=== PATIENT | female | born 1995 | race African-American/Black ===

== ENCOUNTER 2016-07-27 08:18 | Emergency (ER) | payer OTHER ==
[2016-07-27 08:27] VITALS: RESP 20
--- NOTE | 2016-07-27 08:54 | ED ---
Nausea/Vomiting/Diarrhea HPI - General Chief complaint: Nausea/Vomiting/Diarrhea Stated complaint: Flu Time Seen by Provider: 07/27/16 08:28 Source: patient, RN notes reviewed Mode of arrival: ambulatory Limitations: no limitations - History of Present Illness Initial comments: Patient is a 20-year-old female presents to the emergency room for evaluation of nausea and vomiting. Patient states symptoms began around 4 PM yesterday. Patient states she's been throwing up once every hour. Patient stated she tried taking Tylenol but she vomited it back up. Patient also states she began developing right-sided low back pain last night. Patient states pain is not getting any better. Patient states pain is worse with movement. Patient denies any history of kidney stones. Patient denies recent trauma or injury to her back. Patient denies numbness or tingling going down her legs. Patient denies saddle anesthesia. Patient denies urinary or fecal incontinence. Patient denies any pain or burning during urination, trouble urinating or blood in urine. Patient denies abdominal pain. Patient states she still feeling very nauseous. Patient denies diarrhea or constipation. Patient states she's had slight fever over the past 12 hours. Patient denies sinus congestion, cough , throat pain, ear pain. - Related Data Previous Rx's Medication Instructions Recorded Ondansetron Odt [Zofran Odt] 4 mg PO Q8HR PRN #12 tab 07/27/16 Allergies Allergy/AdvReac Type Severity Reaction Status Date / Time No Known Allergies Allergy Verified 07/27/16 09:00 Review of Systems ROS Statement: Those systems with pertinent positive or pertinent negative responses have been documented in the HPI. ROS Other: All systems not noted in ROS Statement are negative. Past Medical History Past Medical History: No Reported History History of Any Multi-Drug Resistant Organisms: MRSA Date of last positivie culture/infection: 2012 MDRO Source:: LEFT GROIN Past Surgical History: No Surgical Hx Reported Past Psychological History: No Psychological Hx Reported Smoking Status: Never smoker Past Alcohol Use History: None Reported Past Drug Use History: None Reported General Exam - General Exam Comments Initial Comments: Sitting in exam room, no acute distress. Limitations: no limitations General appearance: alert, in no apparent distress Head exam: Present: atraumatic, normocephalic, normal inspection Eye exam: Present: normal appearance ENT exam: Present: normal exam Neck exam: Present: normal inspection Respiratory exam: Present: normal lung sounds bilaterally. Absent: respiratory distress Cardiovascular Exam: Present: normal rhythm, tachycardia, normal heart sounds GI/Abdominal exam: Present: soft, normal bowel sounds. Absent: distended, tenderness, guarding, rebound, rigid Extremities exam: Present: normal inspection Back exam: Present: normal inspection Neurological exam: Present: alert, oriented X3, CN II-XII intact, normal gait Psychiatric exam: Present: normal affect, normal mood Skin exam: Present: warm, dry, intact, normal color. Absent: rash Course Vital Signs 07/27/16 07/27/16 08:23 10:48 Temperature 100.4 F H 98.2 F Pulse Rate 118 H 78 Respiratory 20 20 Rate Blood Pressure 99/57 103/60 O2 Sat by Pulse 99 96 Oximetry Medical Decision Making - Medical Decision Making Patient is a 20-year-old female presents emergency room for evaluation of nausea and vomiting. Patient is slightly elevated WBC. 4+ ketones in urine. Patient given fluids. Patient notes have slight blood in urine. Patient denies menstruating at this moment. CT abdomen/pelvis ordered to rule out possible kidney stone. Abdomen/pelvis CT: No bowel obstruction is present. No significant acute findings to account for patient's symptoms. There is 5 cm oval low-density lesion left pelvis stable and simple small ovarian cyst. Findings consistent with total situs inversus. Results discussed with patient. Patient states she is feeling better. Will send patient home with nausea medication and advised to follow-up with her primary care provider. Patient states she understands everything that was discussed with her. Return parameters discussed. Case discussed with Dr. Palacios. - Lab Data Result diagrams: 07/27/16 09:25 07/27/16 09:25 Lab Results 07/27/16 07/27/16 07/27/16 Range/Units 08:37 08:40 08:40 WBC (3.8-10.6) k/uL RBC (3.80-5.40) m/uL Hgb (11.4-16.0) gm/dL Hct (34.0-46.0) % MCV (80.0-100.0) fL MCH (25.0-35.0) pg MCHC (31.0-37.0) g/dL RDW (11.5-15.5) % Plt Count (150-450) k/uL Neutrophils % % Lymphocytes % % Monocytes % % Eosinophils % % Basophils % % Neutrophils # (1.3-7.7) k/uL Lymphocytes # (1.0-4.8) k/uL Monocytes # (0-1.0) k/uL Eosinophils # (0-0.7) k/uL Basophils # (0-0.2) k/uL Sodium (137-145) mmol/L Potassium (3.5-5.1) mmol/L Chloride (98-107) mmol/L Carbon Dioxide (22-30) mmol/L Anion Gap mmol/L BUN (7-17) mg/dL Creatinine (0.52-1.04) mg/dL Est GFR (MDRD) Af Amer (>60 ml/min/1.73 sqM) Est GFR (MDRD) Non-Af (>60 ml/min/1.73 sqM) Glucose (74-99) mg/dL Calcium (8.4-10.2) mg/dL Total Bilirubin (0.2-1.3) mg/dL AST (14-36) U/L ALT (9-52) U/L Alkaline Phosphatase (38-126) U/L Total Protein (6.3-8.2) g/dL Albumin (3.5-5.0) g/dL Urine Color Yellow Urine Appearance Cloudy H (Clear) Urine pH 6.0 (5.0-8.0) Ur Specific [place] 1.031 (1.001-1.035) Urine Protein 1+ H (Negative) Urine Glucose (UA) Negative (Negative) Urine Ketones 4+ H (Negative) Urine Blood Small H (Negative) Urine Nitrate Negative (Negative) Urine Bilirubin 1+ H (Negative) Urine Urobilinogen 4.0 (<2.0) mg/dL Ur Leukocyte Esterase Negative (Negative) Urine RBC 6 H (0-5) /hpf Urine WBC 2 (0-5) /hpf Ur Squamous Epith Cells 15 H (0-4) /hpf Urine Bacteria Rare H (None) /hpf Urine Mucus Many H (None) /hpf Urine HCG, Qual Not Detected (Not Detectd) Influenza Type A RNA Not Detected (Not Detectd) Influenza Type B (PCR) Not Detected (Not Detectd) 07/27/16 07/27/16 Range/Units 09:25 09:25 WBC 13.5 H (3.8-10.6) k/uL RBC 4.50 (3.80-5.40) m/uL Hgb 13.6 (11.4-16.0) gm/dL Hct 40.5 (34.0-46.0) % MCV 90.0 (80.0-100.0) fL MCH 30.2 (25.0-35.0) pg MCHC 33.5 (31.0-37.0) g/dL RDW 12.3 (11.5-15.5) % Plt Count 196 (150-450) k/uL Neutrophils % 88 % Lymphocytes % 8 % Monocytes % 3 % Eosinophils % 1 % Basophils % 0 % Neutrophils # 11.9 H (1.3-7.7) k/uL Lymphocytes # 1.0 (1.0-4.8) k/uL Monocytes # 0.3 (0-1.0) k/uL Eosinophils # 0.1 (0-0.7) k/uL Basophils # 0.0 (0-0.2) k/uL Sodium 138 (137-145) mmol/L Potassium 3.4 L (3.5-5.1) mmol/L Chloride 103 (98-107) mmol/L Carbon Dioxide 21 L (22-30) mmol/L Anion Gap 14 mmol/L BUN 12 (7-17) mg/dL Creatinine 0.69 (0.52-1.04) mg/dL Est GFR (MDRD) Af Amer >60 (>60 ml/min/1.73 sqM) Est GFR (MDRD) Non-Af >60 (>60 ml/min/1.73 sqM) Glucose 84 (74-99) mg/dL Calcium 9.4 (8.4-10.2) mg/dL Total Bilirubin 0.7 (0.2-1.3) mg/dL AST 19 (14-36) U/L ALT 26 (9-52) U/L Alkaline Phosphatase 59 (38-126) U/L Total Protein 7.4 (6.3-8.2) g/dL Albumin 4.2 (3.5-5.0) g/dL Urine Color Urine Appearance (Clear) Urine pH (5.0-8.0) Ur Specific [place] (1.001-1.035) Urine Protein (Negative) Urine Glucose (UA) (Negative) Urine Ketones (Negative) Urine Blood (Negative) Urine Nitrate (Negative) Urine Bilirubin (Negative) Urine Urobilinogen (<2.0) mg/dL Ur Leukocyte Esterase (Negative) Urine RBC (0-5) /hpf Urine WBC (0-5) /hpf Ur Squamous Epith Cells (0-4) /hpf Urine Bacteria (None) /hpf Urine Mucus (None) /hpf Urine HCG, Qual (Not Detectd) Influenza Type A RNA (Not Detectd) Influenza Type B (PCR) (Not Detectd) - Radiology Data Radiology results: report reviewed, image reviewed Disposition Clinical Impression: Nausea and vomiting, Back pain Disposition: HOME SELF-CARE Condition: Good Instructions: Acute Nausea and Vomiting (ED), Low Back Strain (ED) Additional Instructions: Take Tylenol or Motrin as needed for pain. Take Zofran as needed for nausea. Please follow up with primary care provider in 1-2 days for reevaluation. If any new symptom arises or symptoms worsen, return to ER as soon as possible. Prescriptions: Ondansetron Odt [Zofran Odt] 4 mg PO Q8HR PRN #12 tab PRN Reason: Nausea Referrals: Fermín Sanabria MD [Primary Care Provider] - 1-2 days Time of Disposition: 11:56
[2016-07-27 09:07] LABS: Appearance,Urine Cloudy (Clear); Bacteria,Urine Rare /hpf; Bilirubin,Urine 1+ (Negative); Glucose,Urine (UA) Negative (Negative); Ketones,Urine 4+ (Negative); Leukocyte Esterase,Urine Negative (Negative); Mucus,Urine Many /hpf; Nitrite,Urine Negative (Negative); Particle Count 16032; Protein,Urine 1+ (Negative); RBC,Urine 6 /hpf (0-5); Specific Gravity,Urine 1.031 (1.001-1.035); Squamous Epithelial Cell,Urine 15 /hpf (0-4); UA Billing (MACRO vs. MICRO) MICRO; WBC,Urine 2 /hpf (0-5)
[2016-07-27] MEDS: SODIUM CHLORIDE 0.9% 1,000 ML IV ONE (09:24)
[2016-07-27] MEDS: ACETAMINOPHEN IV (For NPO) 1,000 MG in EMPTY BAG 1 BAG IVPB STA (09:24)
[2016-07-27] MEDS: ONDANSETRON 4 MG/2 ML VIAL IVP STA (09:26)
[2016-07-27 09:40] LABS: Basophils % (A) 0 %; CH 30.3; CHCM 33.9; Eosinophils # (A) 0.1 k/uL (0-0.7); Eosinophils % (A) 1 %; HCT 40.5 % (34.0-46.0); HDW 2.15; HGB 13.6 gm/dL (11.4-16.0); Luc % (Auto) 1; Lymphocytes % (A) 8 %; MCH 30.2 pg (25.0-35.0); MCHC 33.5 g/dL (31.0-37.0); Mean Platelet Volume 8.3; Monocytes # (A) 0.3 k/uL (0-1.0); Monocytes % (A) 3 %; Neutrophils # (A) 11.9 k/uL (1.3-7.7); Neutrophils % (A) 88 %; RDW 12.3 % (11.5-15.5); WBC 13.5 k/uL (3.8-10.6); WBC (Perox) 13.43
[2016-07-27 09:53] LABS: ALT 26 U/L (9-52); AST 19 U/L (14-36); Alkaline Phosphatase 59 U/L (38-126); Anion Gap 14 mmol/L; Blood Urea Nitrogen 12 mg/dL (7-17); Calcium 9.4 mg/dL (8.4-10.2); Carbon Dioxide 21 mmol/L (22-30); Chloride 103 mmol/L (98-107); Glucose 84 mg/dL (74-99); Non-African American GFR(MDRD) >60 (>60 ml/min/1.73 sqM); Potassium 3.4 mmol/L (3.5-5.1); Sodium 138 mmol/L (137-145); Total Bilirubin 0.7 mg/dL (0.2-1.3); Total Protein 7.4 g/dL (6.3-8.2)
[2016-07-27 10:50] VITALS: BP 103/60; PULSE 78; TEMP 98.2
--- NOTE | 2016-07-27 10:50 | XR ---
EXAMINATION TYPE: XR KUB DATE OF EXAM: 07/27/2016 10:34 AM CLINICAL HISTORY: Abdominal pain with nausea and vomiting. TECHNIQUE: 2 upright KUB images of the abdomen are obtained COMPARISON: Abdominal x-ray September 14, 2015. Prior chest x-ray April 15, 2015 FINDINGS: Scattered gas is seen in non-distended stomach and small bowel loops. Gas and fecal mater ial is seen in non-distended colon. There is redemonstration of right-sided cardiac apex and stomach bubble. There is no visceromegaly, pneumoperitoneum, or abnormal calcification appreciated. The sheila g bases are clear and the osseous structures are intact. IMPRESSION: Overall nonobstructive bowel gas pattern. Situs inversus redemonstrated.
--- NOTE | 2016-07-27 11:39 | CT ---
EXAMINATION TYPE: CT abdomen pelvis wo con DATE OF EXAM: 07/27/2016 11:31 AM HISTORY: nausea, vomiting, neg HCG CT DLP: 302.5 mGycm. Automated Exposure Control for Dose Reduction was Utilized. TECHNIQUE: CT scan of the abdomen and pelvis is performed without oral or IV contrast. COMPARISON: Multiple prior old abdominal x-rays FINDINGS: Within the limitations of a non-contrast study, the following observations are made. Total situs in versus is seen with left-sided liver and gallbladder and right-sided spleen as well as tota l inversion of all abdominal and pelvic organs. LUNG BASES: Right-sided cardiac apex and descending aorta is redemonstrated. Findings are consistent with total situs inversus. LIVER/GB: No significant abnormality is appreciated. PANCREAS: No significant abnormality is seen. SPLEEN: No significant abnormality is seen. ADRENALS: No significant abnormality is seen. KIDNEYS: No renal stones or hydronephrosis is evident bilaterally BOWEL: Evaluation of bowel is suboptimal due to lack of enteric contrast. Right-sided stomach is pres ent. No suspicious small or large bowel dilatation is seen. Appendix is unremarkable in the left lowe r quadrant at level of cecum. There is right-sided sigmoid colon. GENITAL ORGANS: Uterus is anteverted in shape and within normal limits in size. Incidental note is ma de of 4.9 x 4.6 cm left pelvic low dense lesion favoring simple small ovarian cyst. This can be furth er evaluated with pelvic ultrasound if desired. LYMPH NODES: No greater than 1cm abdominal or pelvic lymph nodes are appreciated. OSSEOUS STRUCTURES: No significant abnormality is seen. OTHER: There is small fat-containing umbilical hernia. Left-sided IVC is noted. IMPRESSION: No bowel obstruction is present. No significant acute finding is seen to account for calin ent's symptoms. There is 5 cm oval low dense lesion left pelvis favoring simple small ovarian cyst. T his can be confirmed with pelvic ultrasound if desired. Findings consistent with total situs inversus are noted as detailed above.
[2016-07-27] MEDS: KETOROLAC 30 MG/ML 1 ML VIAL IVP STA (11:50)
[2016-07-27] MEDS: ACET/COD 300 MG/30 MG STARTER PACK 6 TAB BTL PO STA (12:17)
== END 2016-07-27 12:26 | disposition home or self-care (01) ==
LOC: EC 08:18
DX: S39.012A Strain of muscle, fascia and tendon of lower back, initial encounter (principal); R11.2 Nausea with vomiting, unspecified; X58.XXXA Exposure to other specified factors, initial encounter
CPT/HCPCS: 36415; 80053; 85025; 81001; 81025; 87502; 74000; 74176; 99284; 96365; 96375 ×2; 96361; J2405; J1885; J0131

== ENCOUNTER 2016-10-06 08:40 | Observation (INO) | payer OTHER ==
--- NOTE | 2016-10-06 09:41 | ED ---
Abdominal Pain HPI - General Chief Complaint: Abdominal Pain Stated Complaint: abd pain Time Seen by Provider: 10/06/16 09:05 Source: patient, RN notes reviewed Mode of arrival: wheelchair Limitations: no limitations - History of Present Illness Initial Comments: Patient is a 20-year-old female presents to the emergency room for evaluation of abdominal pain. Patient has situs inversus. Patient states she began developing left upper quadrant pain last night around 8 PM. Patient states she' s had nausea and vomiting throughout the night and this morning. Patient states she's having left upper quadrant pain that comes in waves. Patient also states that having on and off left lower quadrant pain. Patient states she was diagnosed with an ovarian cyst last time she was here. Patient denies history of abdominal surgeries. Patient denies fevers or chills. Patient denies chest pain shortness of breath. Patient denies pain or burning during urination, trouble urinating or blood in urine. Patient does states she is sexually active. Patient denies possibly being . Patient denies taking any medications. Patient denies head or having pain like this before. - Related Data Home Medications Medication Instructions Recorded Confirmed Albuterol Sulfate [Proair Hfa] 2 puff INHALATION RT-Q6H PRN 10/06/16 10/06/16 Vitamin C/Biotin [Hair, Skin and 1 tab PO DAILY 10/06/16 10/06/16 Nails] Previous Rx's Medication Instructions Recorded Ondansetron Odt [Zofran Odt] 4 mg PO Q8HR PRN #12 tab 07/27/16 Allergies Allergy/AdvReac Type Severity Reaction Status Date / Time No Known Allergies Allergy Verified 10/06/16 09:38 Review of Systems ROS Statement: Those systems with pertinent positive or pertinent negative responses have been documented in the HPI. ROS Other: All systems not noted in ROS Statement are negative. 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 History of Any Multi-Drug Resistant Organisms: MRSA Date of last positivie culture/infection: 2012 MDRO Source:: LEFT GROIN Past Surgical History: No Surgical Hx Reported Past Psychological History: No Psychological Hx Reported Smoking Status: Never smoker Past Alcohol Use History: Occasional Past Drug Use History: None Reported General Exam - General Exam Comments Initial Comments: Laying in exam room, no distress. Limitations: no limitations General appearance: alert, in no apparent distress Head exam: Present: atraumatic, normocephalic, normal inspection Eye exam: Present: normal appearance ENT exam: Present: normal exam Neck exam: Present: normal inspection Respiratory exam: Present: normal lung sounds bilaterally. Absent: respiratory distress Cardiovascular Exam: Present: regular rate, normal rhythm, normal heart sounds GI/Abdominal exam: Present: soft, tenderness (LUQ, LLQ), normal bowel sounds. Absent: distended, guarding, rebound, rigid Extremities exam: Present: normal inspection Back exam: Present: normal inspection Neurological exam: Present: alert, oriented X3, CN II-XII intact, normal gait Psychiatric exam: Present: normal affect, normal mood Skin exam: Present: warm, dry, intact, normal color. Absent: rash Course Vital Signs 10/06/16 10/06/16 10/06/16 08:47 11:26 14:24 Temperature 97.8 F 98.8 F Pulse Rate 94 77 83 Respiratory 20 16 18 Rate Blood Pressure 105/63 110/56 114/57 O2 Sat by Pulse 100 100 99 Oximetry Medical Decision Making - Medical Decision Making Patient is a 20-year-old female presents to the emergency room for evaluation of vomiting and abdominal pain. patient complaining of left upper quadrant pain and now complaining of left lower quadrant pain. patient has total situs inversus. ultrasounds ordered to rule out appendicitis, ovarian transient and cholecystitis. appendix not visualized but there was free fluid in the pelvis. ct ordered to rule out appendicitis. ct shows mild acute appendicitis. case discussed with dr. palacios. Dr. Palacios discussed case with Dr. Austin. Patient will be admitted under observation and reevaluated tomorrow by surgery. - Lab Data Result diagrams: 10/06/16 09:40 10/06/16 09:40 Lab Results 10/06/16 10/06/16 10/06/16 Range/Units 09:40 09:40 09:40 WBC 10.5 (3.8-10.6) k/uL RBC 4.30 (3.80-5.40) m/uL Hgb 13.8 (11.4-16.0) gm/dL Hct 39.2 (34.0-46.0) % MCV 91.1 (80.0-100.0) fL MCH 32.0 (25.0-35.0) pg MCHC 35.1 (31.0-37.0) g/dL RDW 12.6 (11.5-15.5) % Plt Count 201 (150-450) k/uL Neutrophils % 84 % Lymphocytes % 12 % Monocytes % 3 % Eosinophils % 1 % Basophils % 0 % Neutrophils # 8.9 H (1.3-7.7) k/uL Lymphocytes # 1.3 (1.0-4.8) k/uL Monocytes # 0.3 (0-1.0) k/uL Eosinophils # 0.1 (0-0.7) k/uL Basophils # 0.0 (0-0.2) k/uL Sodium 139 (137-145) mmol/L Potassium 3.8 (3.5-5.1) mmol/L Chloride 109 H (98-107) mmol/L Carbon Dioxide 23 (22-30) mmol/L Anion Gap 7 mmol/L BUN 11 (7-17) mg/dL Creatinine 0.63 (0.52-1.04) mg/dL Est GFR (MDRD) Af Amer >60 (>60 ml/min/1.73 sqM) Est GFR (MDRD) Non-Af >60 (>60 ml/min/1.73 sqM) Glucose 90 (74-99) mg/dL Calcium 9.4 (8.4-10.2) mg/dL Total Bilirubin 0.9 (0.2-1.3) mg/dL AST 20 (14-36) U/L ALT 26 (9-52) U/L Alkaline Phosphatase 54 (38-126) U/L Total Protein 7.5 (6.3-8.2) g/dL Albumin 4.3 (3.5-5.0) g/dL Amylase 39 (30-110) U/L Lipase 42 (23-300) U/L Urine Color Yellow Urine Appearance Cloudy H (Clear) Urine pH 6.0 (5.0-8.0) Ur Specific [place] 1.027 (1.001-1.035) Urine Protein 1+ H (Negative) Urine Glucose (UA) Negative (Negative) Urine Ketones 4+ H (Negative) Urine Blood Negative (Negative) Urine Nitrite Negative (Negative) Urine Bilirubin Negative (Negative) Urine Urobilinogen <2.0 (<2.0) mg/dL Ur Leukocyte Esterase Small H (Negative) Urine WBC 3 (0-5) /hpf Ur Squamous Epith Cells 18 H (0-4) /hpf Urine Bacteria Rare H (None) /hpf Urine Mucus Moderate H (None) /hpf Urine HCG, Qual (Not Detectd) 10/06/16 Range/Units 09:40 WBC (3.8-10.6) k/uL RBC (3.80-5.40) m/uL Hgb (11.4-16.0) gm/dL Hct (34.0-46.0) % MCV (80.0-100.0) fL MCH (25.0-35.0) pg MCHC (31.0-37.0) g/dL RDW (11.5-15.5) % Plt Count (150-450) k/uL Neutrophils % % Lymphocytes % % Monocytes % % Eosinophils % % Basophils % % Neutrophils # (1.3-7.7) k/uL Lymphocytes # (1.0-4.8) k/uL Monocytes # (0-1.0) k/uL Eosinophils # (0-0.7) k/uL Basophils # (0-0.2) k/uL Sodium (137-145) mmol/L Potassium (3.5-5.1) mmol/L Chloride (98-107) mmol/L Carbon Dioxide (22-30) mmol/L Anion Gap mmol/L BUN (7-17) mg/dL Creatinine (0.52-1.04) mg/dL Est GFR (MDRD) Af Amer (>60 ml/min/1.73 sqM) Est GFR (MDRD) Non-Af (>60 ml/min/1.73 sqM) Glucose (74-99) mg/dL Calcium (8.4-10.2) mg/dL Total Bilirubin (0.2-1.3) mg/dL AST (14-36) U/L ALT (9-52) U/L Alkaline Phosphatase (38-126) U/L Total Protein (6.3-8.2) g/dL Albumin (3.5-5.0) g/dL Amylase (30-110) U/L Lipase (23-300) U/L Urine Color Urine Appearance (Clear) Urine pH (5.0-8.0) Ur Specific [place] (1.001-1.035) Urine Protein (Negative) Urine Glucose (UA) (Negative) Urine Ketones (Negative) Urine Blood (Negative) Urine Nitrite (Negative) Urine Bilirubin (Negative) Urine Urobilinogen (<2.0) mg/dL Ur Leukocyte Esterase (Negative) Urine WBC (0-5) /hpf Ur Squamous Epith Cells (0-4) /hpf Urine Bacteria (None) /hpf Urine Mucus (None) /hpf Urine HCG, Qual Not Detected (Not Detectd) - Radiology Data Radiology results: report reviewed, image reviewed Disposition Clinical Impression: Appendicitis Disposition: ADMITTED IP TO THIS [facility] Condition: Stable Decision Date: 10/06/16
[2016-10-06] MEDS ORDERED: HYDROmorphone 1 MG/ML 1 ML SYRINGE IVP STA ×2 (09:51→13:48)
[2016-10-06] MEDS ORDERED: SODIUM CHLORIDE 0.9% 1,000 ML IV ONE ×2 (09:51→11:11)
[2016-10-06] MEDS ORDERED: ONDANSETRON 4 MG/2 ML VIAL IVP STA (09:51)
[2016-10-06 10:13] LABS: Appearance,Urine Cloudy (Clear); Bacteria,Urine Rare /hpf; Bilirubin,Urine Negative (Negative); Glucose,Urine (UA) Negative (Negative); Ketones,Urine 4+ (Negative); Leukocyte Esterase,Urine Small (Negative); Mucus,Urine Moderate /hpf; Nitrite,Urine Negative (Negative); Particle Count 19981; Protein,Urine 1+ (Negative); Specific Gravity,Urine 1.027 (1.001-1.035); Squamous Epithelial Cell,Urine 18 /hpf (0-4); UA Billing (MACRO vs. MICRO) MICRO; Urobilinogen,Urine <2.0 mg/dL (<2.0); WBC,Urine 3 /hpf (0-5)
[2016-10-06 10:20] LABS: ALT 26 U/L (9-52); AST 20 U/L (14-36); Alkaline Phosphatase 54 U/L (38-126); Amylase 39 U/L (30-110); Anion Gap 7 mmol/L; Blood Urea Nitrogen 11 mg/dL (7-17); Calcium 9.4 mg/dL (8.4-10.2); Carbon Dioxide 23 mmol/L (22-30); Chloride 109 mmol/L (98-107); Glucose 90 mg/dL (74-99); Non-African American GFR(MDRD) >60 (>60 ml/min/1.73 sqM); Potassium 3.8 mmol/L (3.5-5.1); Sodium 139 mmol/L (137-145); Total Bilirubin 0.9 mg/dL (0.2-1.3); Total Protein 7.5 g/dL (6.3-8.2)
[2016-10-06 10:24] LABS: Basophils % (A) 0 %; Eosinophils # (A) 0.1 k/uL (0-0.7); Eosinophils % (A) 1 %; HCT 39.2 % (34.0-46.0); HGB 13.8 gm/dL (11.4-16.0); Luc # (Auto) 0.07; Luc % (Auto) 1; Lymphocytes # (A) 1.3 k/uL (1.0-4.8); Lymphocytes % (A) 12 %; MCHC 35.1 g/dL (31.0-37.0); MCV 91.1 fL (80.0-100.0); Mean Platelet Volume 7.7; Monocytes # (A) 0.3 k/uL (0-1.0); Monocytes % (A) 3 %; Neutrophils # (A) 8.9 k/uL (1.3-7.7); Neutrophils % (A) 84 %; RDW 12.6 % (11.5-15.5); WBC 10.5 k/uL (3.8-10.6); WBC (Perox) 9.72
--- NOTE | 2016-10-06 12:24 | US ---
EXAMINATION TYPE: US abdomen APPY DATE OF EXAM: 10/06/2016 12:02 PM COMPARISON: CT CLINICAL HISTORY: Pain. LUQ pain, pt has situs inversus APPENDIX Unable to visualize appendix, Moderate amount of free fluid extending into LLQ = 5.4 x 1.5 x 6.0 cm IMPRESSION: Nonvisualization of the appendix. Moderate free fluid.
--- NOTE | 2016-10-06 12:24 | US ---
EXAMINATION TYPE: US abdomen limited DATE OF EXAM: 10/06/2016 11:51 AM COMPARISON: CT CLINICAL HISTORY: Pain. LUQ pain, pt has situs inversus EXAM MEASUREMENTS: Liver Length: 15.7 cm Gallbladder Wall: 0.3 cm CBD: 0.2 cm Right Kidney: 10.2 x 4.5 x 5.6 cm (Located in left flank Pancreas: wnl, tail obscured by bowel gas Liver: wnl Gallbladder: wnl Evidence for sonographic Zhong's sign: Yes CBD: wnl Right Kidney: wnl No abnormality visualized to account for pt's symptoms IMPRESSION: No significant abnormality appreciated.
--- NOTE | 2016-10-06 12:25 | US ---
EXAMINATION TYPE: US transvaginal DATE OF EXAM: 10/06/2016 12:14 PM COMPARISON: CT CLINICAL HISTORY: Pain. LUQ pain TECHNIQUE: Transvaginal (TV) Date of LMP: 09/14/2016 EXAM MEASUREMENTS: Uterus: 9.2 x 3.8 x 5.0 cm Endometrial Stripe: 0.5 cm Right Ovary: 2.8 x 2.2 x 2.5 cm Left Ovary: 5.7 x 3.2 x 4.2 cm 1. Uterus: Anteverted wnl 2. Endometrium: wnl 3. Right Ovary: wnl, dominant follicle= 2.0 x 1.4 x 1.6 cm 4. Left Ovary: Possible involuting cyst= 4.4 x 1.3 x 3.3 cm Spectral, color and waveform doppler imaging shows good arterial and venous flow within the ovaries ; there is no evidence for ovarian torsion. 5. Bilateral Adnexa: Free fluid present, more in left adnexa 6. Posterior cul-de-sac: Free fluid present IMPRESSION: 1. Nonspecific bilateral perirenal cysts. No evidence for torsion. Free fluid identified.
[2016-10-06] MEDS ORDERED: RX INFO: IV CONTRAST WAS GIVEN 1 EACH MISC MISCELLANE PRN (13:38)
[2016-10-06] MEDS ORDERED: KETOROLAC 30 MG/ML 1 ML VIAL IVP STA (13:48)
--- NOTE | 2016-10-06 14:27 | CT ---
EXAMINATION TYPE: CT abdomen pelvis w con DATE OF EXAM: 10/06/2016 2:15 PM COMPARISON: 7 HISTORY: Patient complains of LUQ pain, nausea, and vomiting. CT DLP: 465.4 mGycm CONTRAST: CT scan of the abdomen and pelvis is performed without Oral Contrast and with IV Contrast, patient in jected with 100 mL of Omnipaque 300. FINDINGS: Again noted are changes of total situs inverses. LUNG BASES-: No visible nodule. No infiltrate. LIVER/GB: No calcified gallstones. No space occupying hepatic lesion. Biliary tree is of normal ca liber. PANCREAS: No inflammation. No distinct mass. SPLEEN: No splenic enlargement. No lesion seen. ADRENALS: No nodule. No thickening. KIDNEYS/BLADDER: No hydronephrosis. No nephrolithiasis. No disctinct renal mass. Urinary bladder g rossly unremarkable. BOWEL: There is mild thickening of the tip of the appendix with surrounding fluid. Acute appendicitis is difficult to exclude. The appendix is retrocecal and extends to the edge of the liver. Correlate clinically. Normal bowel caliber. No inflammation. GENITAL ORGANS: Moderate free fluid within the pelvis. Small amount of fluid within the left paracol ic gutter. No discrete uterine or ovarian mass. LYMPH NODES: No greater than 1cm abdominal or pelvic lymph nodes are appreciated. AORTA: No significant abnormality. OSSEOUS STRUCTURES: No significant abnormality is seen. OTHER: No significant additional abnormality is seen. IMPRESSION: 1. I cannot exclude mild acute appendicitis of the appendiceal tip within the left upper quadrant. 2. Free fluid within the pelvis and left paracolic gutter. 3. Total situs inversus
[2016-10-06] MEDS ORDERED: KETOROLAC 30 MG/ML 1 ML VIAL IVP PRN (14:53)
[2016-10-06] MEDS ORDERED: NALOXONE 0.4 MG/ML 1 ML VIAL IV PRN (14:53)
[2016-10-06] MEDS: HYDROmorphone 1 MG/ML 1 ML SYRINGE IV PRN (20:05)
[2016-10-06] MEDS: SODIUM CHLORIDE 0.9% 1,000 ML IV SCH (20:05)
[2016-10-06] MEDS: ONDANSETRON 4 MG/2 ML VIAL IVP PRN (20:53)
[2016-10-07] MEDS: SODIUM CHLORIDE 0.9% 1,000 ML IV SCH ×2 (01:56→05:20)
[2016-10-07] MEDS: ONDANSETRON 4 MG/2 ML VIAL IVP PRN (06:05)
[2016-10-07 06:44] LABS: Basophils % (A) 0 %; CHCM 33.2; Eosinophils # (A) 0.1 k/uL (0-0.7); Eosinophils % (A) 1 %; HCT 35.2 % (34.0-46.0); HDW 2.24; HGB 11.7 gm/dL (11.4-16.0); Luc # (Auto) 0.09; Luc % (Auto) 1; Lymphocytes # (A) 2.3 k/uL (1.0-4.8); Lymphocytes % (A) 36 %; MCH 30.2 pg (25.0-35.0); MCHC 33.3 g/dL (31.0-37.0); MCV 90.6 fL (80.0-100.0); Mean Platelet Volume 8.3; Monocytes # (A) 0.3 k/uL (0-1.0); Monocytes % (A) 4 %; Neutrophils # (A) 3.6 k/uL (1.3-7.7); Neutrophils % (A) 57 %; RBC 3.88 m/uL (3.80-5.40); RDW 12.6 % (11.5-15.5); WBC 6.4 k/uL (3.8-10.6); WBC (Perox) 6.73
[2016-10-07 06:57] LABS: ALT 26 U/L (9-52); AST 19 U/L (14-36); Alkaline Phosphatase 39 U/L (38-126); Anion Gap 7 mmol/L; Blood Urea Nitrogen 10 mg/dL (7-17); Calcium 8.3 mg/dL (8.4-10.2); Carbon Dioxide 20 mmol/L (22-30); Chloride 113 mmol/L (98-107); Glucose 73 mg/dL (74-99); Non-African American GFR(MDRD) >60 (>60 ml/min/1.73 sqM); Potassium 3.4 mmol/L (3.5-5.1); Sodium 140 mmol/L (137-145); Total Bilirubin 0.8 mg/dL (0.2-1.3); Total Protein 5.9 g/dL (6.3-8.2)
[2016-10-07] MEDS ORDERED: Potassium Replacement Protocol 1 EACH MISC MISCELLANE PRN (08:47)
[2016-10-07] MEDS: POTASSIUM CHLORIDE 10 MEQ, LIDOCAINE 2% INJ 10 MG in SODIUM CHLORIDE 0.9% 100 ML IV SCH ×2 (09:44→10:48)
--- NOTE | 2016-10-07 09:55 | P.GSHP ---
History of Present Illness H&P Date: 10/07/16 Chief Complaint: Abdominal pain Patient is a 20-year-old female, patient of Dr. Sanabria in the outpatient setting, with medical history significant for dextrocardia. Patient presented to the emergency department with complains of acute left-sided abdominal pain associated with nausea and vomiting progressively getting worse over one day. No history of reported fevers but patient reports chills and sweats. CT of abdomen and pelvis suspicious for mild acute appendicitis. No evidence of fevers. No evidence of leukocytosis. Hemoglobin stable. Upon exam, patient complains of left upper quadrant pain radiating into her left lower quadrant. Patient describes pain as sharp, exacerbated with movement, currently rating the pain 5 out of 10. Patient reports slight nausea without vomiting. Denies shortness of breath, chest pain, diarrhea or constipation. Denies dysuria, hematuria, or urgency. A.m. labs WBC 6.4. Hemoglobin stable at 11.7. Potassium 3.4. 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 History of Any Multi-Drug Resistant Organisms: MRSA Date of last positivie culture/infection: 2012 MDRO Source:: LEFT GROIN Past Surgical History: No Surgical Hx Reported Past Psychological History: No Psychological Hx Reported Smoking Status: Never smoker Past Alcohol Use History: Occasional Past Drug Use History: None Reported - Past Family History Mother Family Medical History: Cancer Father Family Medical History: Hypertension Medications and Allergies Home Medications Medication Instructions Recorded Confirmed Type Albuterol Sulfate [Proair Hfa] 2 puff INHALATION RT-Q6H PRN 10/06/16 10/06/16 History Vitamin C/Biotin [Hair, Skin and 1 tab PO DAILY 10/06/16 10/06/16 History Nails] Allergies Allergy/AdvReac Type Severity Reaction Status Date / Time No Known Allergies Allergy Verified 10/06/16 17:41 Surgical - Exam Vital Signs Temp Pulse Resp BP Pulse Ox 97.8 F 94 20 105/63 100 10/06/16 08:47 10/06/16 08:47 10/06/16 08:47 10/06/16 08:47 10/06/16 08:47 GENERAL: Pt awake and alert, well-appearing, well-nourished, and in no acute distress. HEAD: Atraumatic, normocephalic. EYES: Pupils equal, round, and reactive to light, sclera anicteric, conjunctiva are normal. ENT: Moist mucous membranes. NECK: Supple without lymphadenopathy. Neck midline. LUNGS: Breath sounds clear to auscultation bilaterally. No wheezes, rales, or rhonchi. HEART: Heart S1, S2, no S3 or S4. Regular rate and rhythm. No murmurs, rubs or gallops. ABDOMEN: Soft, moderate left upper quadrant and left lower quadrant tenderness, nondistended, normoactive bowel sounds. Voluntary guarding. No masses or organomegaly appreciated. EXTREMITIES: 2+ peripheral pulses. No edema. No calf tenderness. NEUROLOGICAL: Pt oriented x 3. No focal deficits noted. Strength and sensation grossly intact. PSYCH: Normal mood, normal affect. SKIN: Warm, dry, intact. Results - Labs 10/07/16 06:29 10/07/16 06:29 Abnormal Lab Results - Last 24 Hours (Table) 10/06/16 10/06/16 10/06/16 Range/Units 09:40 09:40 09:40 Neutrophils # 8.9 H (1.3-7.7) k/uL Potassium (3.5-5.1) mmol/L Chloride 109 H (98-107) mmol/L Carbon Dioxide (22-30) mmol/L Glucose (74-99) mg/dL Calcium (8.4-10.2) mg/dL Total Protein (6.3-8.2) g/dL Albumin (3.5-5.0) g/dL Urine Appearance Cloudy H (Clear) Urine Protein 1+ H (Negative) Urine Ketones 4+ H (Negative) Ur Leukocyte Esterase Small H (Negative) Ur Squamous Epith Cells 18 H (0-4) /hpf Urine Bacteria Rare H (None) /hpf Urine Mucus Moderate H (None) /hpf 10/07/16 Range/Units 06:29 Neutrophils # (1.3-7.7) k/uL Potassium 3.4 L (3.5-5.1) mmol/L Chloride 113 H (98-107) mmol/L Carbon Dioxide 20 L (22-30) mmol/L Glucose 73 L (74-99) mg/dL Calcium 8.3 L (8.4-10.2) mg/dL Total Protein 5.9 L (6.3-8.2) g/dL Albumin 3.1 L (3.5-5.0) g/dL Urine Appearance (Clear) Urine Protein (Negative) Urine Ketones (Negative) Ur Leukocyte Esterase (Negative) Ur Squamous Epith Cells (0-4) /hpf Urine Bacteria (None) /hpf Urine Mucus (None) /hpf Diabetes panel 10/06/16 10/07/16 Range/Units 09:40 06:29 Sodium 139 140 (137-145) mmol/L Potassium 3.8 3.4 L (3.5-5.1) mmol/L Chloride 109 H 113 H (98-107) mmol/L Carbon Dioxide 23 20 L (22-30) mmol/L BUN 11 10 (7-17) mg/dL Creatinine 0.63 0.63 (0.52-1.04) mg/dL Glucose 90 73 L (74-99) mg/dL Calcium 9.4 8.3 L (8.4-10.2) mg/dL AST 20 19 (14-36) U/L ALT 26 26 (9-52) U/L Alkaline Phosphatase 54 39 (38-126) U/L Total Protein 7.5 5.9 L (6.3-8.2) g/dL Albumin 4.3 3.1 L (3.5-5.0) g/dL Calcium panel 10/06/16 10/07/16 Range/Units 09:40 06:29 Calcium 9.4 8.3 L (8.4-10.2) mg/dL Albumin 4.3 3.1 L (3.5-5.0) g/dL Pituitary panel 10/06/16 10/07/16 Range/Units 09:40 06:29 Sodium 139 140 (137-145) mmol/L Potassium 3.8 3.4 L (3.5-5.1) mmol/L Chloride 109 H 113 H (98-107) mmol/L Carbon Dioxide 23 20 L (22-30) mmol/L BUN 11 10 (7-17) mg/dL Creatinine 0.63 0.63 (0.52-1.04) mg/dL Glucose 90 73 L (74-99) mg/dL Calcium 9.4 8.3 L (8.4-10.2) mg/dL Adrenal panel 10/06/16 10/07/16 Range/Units 09:40 06:29 Sodium 139 140 (137-145) mmol/L Potassium 3.8 3.4 L (3.5-5.1) mmol/L Chloride 109 H 113 H (98-107) mmol/L Carbon Dioxide 23 20 L (22-30) mmol/L BUN 11 10 (7-17) mg/dL Creatinine 0.63 0.63 (0.52-1.04) mg/dL Glucose 90 73 L (74-99) mg/dL Calcium 9.4 8.3 L (8.4-10.2) mg/dL Total Bilirubin 0.9 0.8 (0.2-1.3) mg/dL AST 20 19 (14-36) U/L ALT 26 26 (9-52) U/L Alkaline Phosphatase 54 39 (38-126) U/L Total Protein 7.5 5.9 L (6.3-8.2) g/dL Albumin 4.3 3.1 L (3.5-5.0) g/dL - Imaging CT scan - abdomen: report reviewed CT scan - pelvis: report reviewed US - abdomen: report reviewed US - pelvic: report reviewed Assessment and Plan Plan: Impression: 1. Acute appendicitis, present on admission. 2. Hypokalemia. Plan: 1. Patient will undergo laparoscopic appendectomy today. Patient will be kept nothing by mouth. Replace potassium per protocol. Continue IV hydration. Continue supportive treatment and pain management. The above impression and plan have been discussed and directed by Dr. Carroll. Erika BUTLER-Reema acting as scribe for Dr. Austin.
[2016-10-07] MEDS ORDERED: IV FLUID CONTINUATION 1,000 ML IV ONE (11:54)
[2016-10-07] MEDS ORDERED: fentaNYL (PF) 50 MCG/ML 2 ML AMP ONE (13:26)
[2016-10-07] MEDS ORDERED: ONDANSETRON 4 MG/2 ML VIAL ONE (13:26)
[2016-10-07] MEDS ORDERED: SUCCINYLCHOLINE CHLORIDE 100 MG/5 ML SYR IV ONE (13:26)
[2016-10-07] MEDS ORDERED: MIDAZOLAM 2 MG/2 ML VIAL ONE (13:26)
[2016-10-07] MEDS ORDERED: GLYCOPYRROLATE 0.2 MG/ML 2 ML VIAL ONE (13:26)
[2016-10-07] MEDS ORDERED: LIDOCAINE 1% INJ 10MG/ML (20 ML MDV) ONE (13:26)
[2016-10-07] MEDS ORDERED: NEOSTIGMINE 1 MG/ML 10 ML VIAL ONE (13:26)
[2016-10-07] MEDS ORDERED: ROCURONIUM BROMIDE 10 MG/ML 10 ML VIAL IV ONE (13:26)
[2016-10-07] MEDS ORDERED: PROPOFOL 10 MG/ML 20 ML VIAL IV ONE (13:26)
[2016-10-07] MEDS ORDERED: SODIUM CHLORIDE 0.9% 50 ML with ceFAZolin 2,000 MG IV ONE ×2 (13:41)
[2016-10-07] MEDS ORDERED: BUPIVACAIN-EPI 0.25%-1:200,000 30 ML VIAL SQ ONE (13:49)
--- NOTE | 2016-10-07 14:05 | P.OP ---
Date of Procedure: 10/07/16 Preoperative Diagnosis: Acute appendicitis Postoperative Diagnosis: Acute appendicitis Procedure(s) Performed: Laparoscopic appendectomy Implants: Anesthesia: MINNIE Surgeon: Robi Austin Estimated Blood Loss (ml): 5 Pathology: other (Appendix) Condition: stable Disposition: PACU Indications for Procedure: Operative Findings: Description of Procedure: The patient's placed on the operating table in the supine position. The patient received general anesthesia. The abdomen was prepped and draped in the usual sterile fashion. The skin was anesthetized 1% local Xylocaine at the trocar sites. Using an 11 blade the skin was incised at the umbilicus. The umbilicus was grasped with a Flory clamp and then a Veress needle was placed into the peritoneal cavity. Position of the Veress needle was confirmed with positive drop test. After adequate insufflation a 5 mm trocar was placed into the peritoneal cavity. The abdomen was further insufflated. And then the laparoscope was placed in the peritoneal cavity. Next a 5 mm trocar was placed in the midline suprapubic position. And then a 10 mm trocar was placed in the midline epigastric position. The patient was rotated with the left side up and in Trendelenburg. The appendix was visualized. There appeared to be some hemorrhagic fluid within the pleural cavity suggestive of an ovarian cyst. It appeared to be a ruptured ovarian cyst on the left ovary. The appendix appeared to be inflamed. The patient had situs inversus. The appendix was grasped and then using the Harmonic scissors the mesoappendix was divided. A PDS Endoloop was then placed around the base of the appendix. And then the appendix was divided using Harmonic scissors. The appendix was placed into an Endo Catch and brought out through the 10 mm trocar site. The abdomen was irrigated. There is no bleeding seen. The trochars withdrawn. The skin was closed interrupted 3-0 Monocryl suture. Dermabond dressing was applied. Patient was sent to recovery room in stable condition.
[2016-10-07] MEDS ORDERED: ACETAMINOPHEN TAB 325 MG TAB PO PRN (14:06)
[2016-10-07] MEDS ORDERED: LACTATED RINGERS 1,000 ML IV ONE (14:06)
[2016-10-07] MEDS ORDERED: NALOXONE 0.4 MG/ML 1 ML VIAL IV PRN (14:06)
[2016-10-07] MEDS ORDERED: traMADol 50 MG TAB PO PRN (14:06)
[2016-10-07] MEDS: HYDROmorphone 1 MG/ML 1 ML SYRINGE IV PRN ×4 (14:31→19:45)
[2016-10-07] MEDS ORDERED: DEXAMETHASONE SOD PHOSPHATE 10 MG/ML 1 ML VIAL IV ONE (14:58)
[2016-10-07] MEDS: KETOROLAC 30 MG/ML 1 ML VIAL IVP SCH ×2 (16:22→22:06)
[2016-10-07] MEDS: DOCUSATE 100 MG CAP PO SCH (20:42)
[2016-10-07] MEDS: LACTATED RINGERS 1,000 ML IV ONE (20:43)
[2016-10-08 00:34] VITALS: TEMP 98.3
[2016-10-08] MEDS: KETOROLAC 30 MG/ML 1 ML VIAL IVP SCH ×2 (02:56→09:34)
[2016-10-08] MEDS: LACTATED RINGERS 1,000 ML IV ONE (04:21)
[2016-10-08] MEDS: HYDROmorphone 1 MG/ML 1 ML SYRINGE IV PRN (06:15)
[2016-10-08] MEDS ORDERED: ENOXAPARIN 40 MG/0.4 ML SYRINGE SQ SCH (09:00)
[2016-10-08] MEDS: ONDANSETRON 4 MG/2 ML VIAL IVP PRN (09:40)
[2016-10-08] MEDS: DOCUSATE 100 MG CAP PO SCH (09:40)
--- NOTE | 2016-10-08 10:20 | P.DS ---
Providers Date of admission: 10/06/16 14:39 Expected date of discharge: 10/08/16 Attending physician: Robi Austin Consults: 10/07/16 14:06 Consult Physician Routine Consulting Provider: Henrietta Hernández Consult Reason/Comments: Medical management Do you want consulting provider notified?: Yes Primary care physician: Elly Kovacs [facility] Course: This a 20-year-old female who was admitted to hospital couplets of dull pain. His workup found have evidence of acute appendicitis. Patient underwent laparoscopic appendectomy on 10/08/2016. Please see hospital chart for details. Procedures: Laparoscopic appendectomy Patient Condition at Discharge: Stable Plan - Discharge Summary New Discharge Prescriptions: Docusate [Colace] 100 mg PO BID #20 capsule HYDROcodone/APAP 7.5-325MG [[place] 7.5] 1 each PO Q4H PRN #60 tab PRN Reason: Pain Discharge Medication List Ondansetron Odt [Zofran Odt] 4 mg PO Q8HR PRN #12 tab 07/27/16 [Rx] Albuterol Sulfate [Proair Hfa] 2 puff INHALATION RT-Q6H PRN 10/06/16 [History] Vitamin C/Biotin [Hair, Skin and Nails] 1 tab PO DAILY 10/06/16 [History] Docusate [Colace] 100 mg PO BID #20 capsule 10/08/16 [Rx] HYDROcodone/APAP 7.5-325MG [[place] 7.5] 1 each PO Q4H PRN #60 tab 10/08/16 [Rx] Follow up Appointment(s)/Referral(s): Fermín Sanabria MD [Primary Care Provider] - 1-2 days Robi Austin MD [STAFF PHYSICIAN] - 1 Week Patient Instructions/Handouts: Laparoscopic Appendectomy (DC), Acute Abdominal Pain (GEN)
[2016-10-08 12:06] VITALS: BP 101/57; PULSE 65; RESP 19
[2016-10-08] MEDS ORDERED: HYDROcodone/APAP 7.5-325MG 1 EACH TAB PO PRN (12:37)
--- NOTE | 2016-10-08 18:30 | CONS ---
DATE OF CONSULTATION: REASON FOR CONSULTATION: Advice regarding asthma and multiple other medical issues requested by Dr. Austin. HISTORY OF PRESENT ILLNESS: This 20 -year-old woman with past medical history of dextrocardia , history of asthma, was admitted with features of acute appendicitis. The patient underwent laparoscopic appendectomy by Dr. Austin. The patient is being closely monitored. No chest pain. No palpitations. No fever. PAST MEDICAL HISTORY: History of dextrocardia MRSA, history of asthma. MEDICATIONS: 1. Vitamin C biotin 1 p.o. daily. 2. Zofran 4 mg q.8 p.m. 3. Pro-Air HFA 2 puffs q.6 p.r.n. 4. [place] 7.5 q.4h p.r.n. 5. Colace 100 milligrams p.o. b.i.d. ALLERGIES: None. FAMILY HISTORY: History of cancer in the family. SOCIAL HISTORY: No history of smoking. Occasional alcohol intake. REVIEW OF SYSTEMS: ENT: No diminishing hearing. No diminished vision. CARDIOVASCULAR: No angina. RESPIRATORY: No cough. GASTROINTESTINAL: As mentioned earlier. GENITOURINARY: No dysuria. CENTRAL NERVOUS SYSTEM: No numbness or weakness. Allergy/immunology: Asthma as mentioned earlier. MUSCULOSKELETAL: As mentioned earlier. Hematology/Oncology: No history of anemia. ENDOCRINE: No history of diabetes or hypothyroidism. CONSTITUTIONAL: As mentioned earlier. DERMATOLOGY: negative. RHEUMATOLOGY: Negative. PSYCHIATRY: As mentioned earlier. PHYSICAL EXAMINATION: The patient is alert and oriented times three. Pulse 64, blood pressure 117/75, respirations 15, temperature 98.2. Pulse ox 100% on room air. HEENT: Conjunctivae normal . NECK: No jugular venous distention. CARDIOVASCULAR: S1, S2 normal. RESPIRATORY: Breath sounds diminished at the bases. A few rhonchi, no crackles. ABDOMEN: Soft, status post surgery. Legs: No edema. No swelling. Nervous system: Higher functions as mentioned earlier. Moves all four limbs. No focal deficits. LYMPHATICS: No lymph nodes palpable in the neck, axillae or groin. SKIN: No ulcer, rash or bleeding. LABS: CBC normal. Sodium 140, potassium 3.4. Glucose 73, albumin is 3.1. ASSESSMENT: 1. Abdominal pain, status post acute appendicitis, appendectomy. 2. Hypokalemia. 3. History of asthma. 4. History dextrocardia. 5. History of Methicillin-resistant Staph aureus. 6. FULL CODE. RECOMMENDATIONS DISCUSSION: In this 20-year-old woman who presented after surgeries ( ) continue the current medications, symptomatic treatment, incentive spirometry, closely follow with Dr. Sanabria. Continue with incentive spirometry and as well as bronchodilators. We will follow the patient closely with. Thank you for letting us participate in the care of this patient. Thank you Dr. Austin. JESÚS
== END 2016-10-08 15:15 | disposition home or self-care (01) ==
LOC: EC 08:40 → 6PED 14:39
PROVIDERS: ADMIT Surgery; ATTEND Surgery
DX: K35.80 Unspecified acute appendicitis (principal); Q89.3 Situs inversus; E87.6 Hypokalemia; J45.909 Unspecified asthma, uncomplicated; Z86.14 Personal history of Methicillin resistant Staphylococcus aureus infection; Z82.49 Family history of ischemic heart disease and other diseases of the circulatory system; Z80.9 Family history of malignant neoplasm, unspecified; Z79.1 Long term (current) use of non-steroidal anti-inflammatories (NSAID); Z79.891 Long term (current) use of opiate analgesic
CPT/HCPCS: 44970; 96374; 96375 ×2; 96376; 96361; 99285; 81025 ×2; 88304; 80053 ×2; 82150; 83690; 85025 ×2; 81001; 93975; 76705; 76830; 74177; G0378 ×3; J2001 ×2; J2250; J1100; J2710; J2405 ×3; J3480; J1650; J3010; J1885 ×3; J1170 ×3; Q9967; J0690; J0330; J2704

== ENCOUNTER 2016-10-11 19:51 | Emergency (ER) | payer OTHER ==
[2016-10-11 20:18] VITALS: BP 120/72; PULSE 90; RESP 18; TEMP 99.1
[2016-10-11] MEDS ORDERED: GELATIN SPONGE,ABSORB (SMALL) 1 EACH SPONGE TOPICAL STA (21:14)
--- NOTE | 2016-10-11 21:37 | ED ---
Wound/Laceration HPI - General Chief Complaint: Wound/Laceration Stated Complaint: open incision site Time Seen by Provider: 10/11/16 21:06 Source: patient, RN notes reviewed, old records reviewed Mode of arrival: wheelchair Limitations: no limitations - History of Present Illness Initial Comments: This is a 20 year old female with chief complaint of bleeding from umbilical inscision site status post appendectomy. Patient reports she had this completed one day ago from Dr. Austin. PAtient states that she called him, and he advised her to apply pressure with a pillow over the site. Reports it was slowly bleeding for the past 8 hours. - Related Data Home Medications Medication Instructions Recorded Confirmed Albuterol Sulfate [Proair Hfa] 2 puff INHALATION RT-Q6H PRN 10/06/16 10/11/16 Previous Rx's Medication Instructions Recorded Docusate [Colace] 100 mg PO BID #20 capsule 10/08/16 HYDROcodone/APAP 7.5-325MG [[place] 1 each PO Q4H PRN #60 tab 10/08/16 7.5] Allergies Allergy/AdvReac Type Severity Reaction Status Date / Time No Known Allergies Allergy Verified 10/07/16 12:03 Review of Systems ROS Statement: Those systems with pertinent positive or pertinent negative responses have been documented in the HPI. ROS Other: All systems not noted in ROS Statement are negative. 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 History of Any Multi-Drug Resistant Organisms: MRSA Date of last positivie culture/infection: 2012 MDRO Source:: LEFT GROIN Past Surgical History: Appendectomy Past Psychological History: No Psychological Hx Reported Smoking Status: Current every day smoker Past Alcohol Use History: Occasional Past Drug Use History: None Reported - Past Family History Mother Family Medical History: Cancer Father Family Medical History: Hypertension General Exam Limitations: no limitations General appearance: alert, in no apparent distress Head exam: Present: atraumatic, normocephalic, normal inspection Eye exam: Present: normal appearance, PERRL, EOMI. Absent: scleral icterus, conjunctival injection, periorbital swelling ENT exam: Present: normal exam, mucous membranes moist Neck exam: Present: normal inspection. Absent: tenderness, meningismus, lymphadenopathy Respiratory exam: Present: normal lung sounds bilaterally. Absent: respiratory distress, wheezes, rales, rhonchi, stridor Cardiovascular Exam: Present: regular rate, normal rhythm, normal heart sounds. Absent: systolic murmur, diastolic murmur, rubs, gallop, clicks GI/Abdominal exam: Present: soft, normal bowel sounds, other (evidence of incisions of umbilicus and RUQ and LUQ from recent appendectomy. No bleeding from umbilical incision seen. Patient is mildly tender over incision site. ). Absent: distended, tenderness, guarding, rebound, rigid Extremities exam: Present: normal inspection, full ROM, normal capillary refill. Absent: tenderness, pedal edema, joint swelling, calf tenderness Back exam: Present: normal inspection Neurological exam: Present: alert, oriented X3, CN II-XII intact Psychiatric exam: Present: normal affect, normal mood Skin exam: Present: warm, dry, intact, normal color. Absent: rash Course Vital Signs 10/11/16 20:14 Temperature 99.1 F Pulse Rate 90 Respiratory 18 Rate Blood Pressure 120/72 O2 Sat by Pulse 100 Oximetry Medical Decision Making - Medical Decision Making 20-year-old female presenting to the ED with bleeding umbilical incision from recent appendectomy. On exam there is no evidence of bleeding at this time. Discussed that we can place a piece of [place] over the area but to continue to apply pressure, as well as follow-up with surgeon as directed. Patient understands treatment plan will comply. Return parameters were discussed. Disposition Clinical Impression: Postoperative bleeding from incision Disposition: HOME SELF-CARE Condition: Good Instructions: Acute Wound Care (ED) Additional Instructions: Patient of eyes to follow-up with her surgeon and as soon as possible and her scheduled appointment. Keep the area covered and keep the Gelfoam in the area. Return to the emergency department if any alarming signs or symptoms occur. Referrals: Fermín Sanabria MD [Primary Care Provider] - 1-2 days Time of Disposition: 21:37
== END 2016-10-11 21:43 | disposition home or self-care (01) ==
LOC: EC 19:51
DX: K91.840 Postprocedural hemorrhage of a digestive system organ or structure following a digestive system procedure (principal); F17.200 Nicotine dependence, unspecified, uncomplicated; Z90.49 Acquired absence of other specified parts of digestive tract; Y83.8 Other surgical procedures as the cause of abnormal reaction of the patient, or of later complication, without mention of misadventure at the time of the procedure
CPT/HCPCS: 99283

== ENCOUNTER 2017-03-22 17:17 | Emergency (ER) | payer OTHER ==
[2017-03-22] MEDS ORDERED: ACETAMINOPHEN TAB 500 MG TAB PO STA (19:00)
[2017-03-22 19:27] VITALS: BP 118/56; PULSE 82; RESP 16; TEMP 99.3
--- NOTE | 2017-03-22 19:27 | XR ---
EXAMINATION TYPE: XR chest 2V DATE OF EXAM: 03/22/2017 COMPARISON: April 15, 2015 HISTORY: Chest pain TECHNIQUE: Frontal and lateral views of the chest are obtained. FINDINGS: There is dextrocardia. Stomach bubble is on the right side. This is consistent with situs inversus. The lungs are clear. There is no heart failure. There are no hilar masses. Bony thorax is i ntact. IMPRESSION: No active cardiopulmonary disease. Situs inversus. No change.
--- NOTE | 2017-03-22 19:38 | ED ---
General Adult HPI - General Chief complaint: Abdominal Pain Stated complaint: Sob Time Seen by Provider: 03/22/17 18:50 Source: patient, RN notes reviewed, old records reviewed Mode of arrival: ambulatory Limitations: no limitations - History of Present Illness Initial comments: Patient is a 21-year-old female who presents emergency room today with a chief complaint of cough congestion over the last 3-4 days. Admits to chest hurting. She states this pain started after having a cough congestion. Does admit some pressure in her ears with some increased rhinorrhea. Patient also admits that she's been experiencing some pain in the right side of the abdomen over the last 3 weeks. She does admit to a appendectomy approximately 5 months ago. Patient denies any other complaints or associated symptoms at this time. Patient denies any recent shortness of breath, back pain, abdominal pain, nausea or vomiting, numbness or tingling, dysuria or hematuria, constipation or diarrhea, headaches or visual changes, or any other complaints. - Related Data Previous Rx's Medication Instructions Recorded Azithromycin [Zithromax Z-pack] 0 mg PO DIRECTED #6 tab 03/22/17 Fluticasone Propionate [Flonase 1 - 2 spray EA NOSTRIL DAILY 5 03/22/17 Allergy Relief] Days ml predniSONE 40 mg PO DAILY 5 Days tab 03/22/17 Allergies Allergy/AdvReac Type Severity Reaction Status Date / Time No Known Allergies Allergy Verified 03/22/17 19:00 Review of Systems ROS Statement: Those systems with pertinent positive or pertinent negative responses have been documented in the HPI. ROS Other: All systems not noted in ROS Statement are negative. 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 History of Any Multi-Drug Resistant Organisms: MRSA Date of last positivie culture/infection: 2012 MDRO Source:: LEFT GROIN Past Surgical History: Appendectomy Past Psychological History: No Psychological Hx Reported Smoking Status: Former smoker Past Alcohol Use History: Occasional Past Drug Use History: None Reported - Past Family History Mother Family Medical History: Cancer Father Family Medical History: Hypertension General Exam - General Exam Comments Initial Comments: General: The patient is awake and alert, in no distress, and does not appear acutely ill. Eye: Pupils are equal, round and reactive to light, extra-ocular movements are intact. No nystagmus. There is normal conjunctiva bilaterally. No signs of icterus. Ears, nose, mouth and throat: There are moist mucous membranes and no oral lesions. Neck: The neck is supple, there is no tenderness or JVD. Cardiovascular: There is a regular rate and rhythm. No murmur, rub or gallop is appreciated. Tender to palpation over the anterior chest wall. This does reproduce her pain Respiratory: Lungs are clear to auscultation, respirations are non-labored, breath sounds are equal. No wheezes, stridor, rales, or rhonchi. Gastrointestinal: Soft, non-distended, non-tender abdomen without masses or organomegaly noted. There is no rebound or guarding present. No CVA tenderness. Bowel sounds are unremarkable. Musculoskeletal: Normal ROM, no tenderness. Strength 5/5. Sensation intact. Pulses equal bilaterally 2+. Neurological: A&O x 3. CN II-XII intact, There are no obvious motor or sensory deficits. Coordination appears grossly intact. Speech is normal. Skin: Skin is warm and dry and no rashes or lesions are noted. Psychiatric: Cooperative, appropriate mood & affect, normal judgment. Limitations: no limitations Course Vital Signs 03/22/17 03/22/17 18:15 19:26 Temperature 100.0 F H 99.3 F Pulse Rate 90 82 Respiratory 20 16 Rate Blood Pressure 118/65 118/56 O2 Sat by Pulse 100 99 Oximetry EKG Findings - EKG Comments: EKG Findings:: EKG performed at 1935: A 12-lead EKG was performed and interpreted by me as showing the following: Rate is 86, and rhythm is normal sinus. There are normal QRS complexes and normal R-wave progression. ST segments have no elevation or depression, and MI segments appear normal. Medical Decision Making - Medical Decision Making Chest x-rays negative for any acute abnormality. Patient's EKG shows normal sinus rhythm. Her pain is reproduced on palpation. She has been to cough congestion with rhinorrhea and pressure ears. Does have some tenderness over her sinuses well. Patient will be treated for an upper respiratory infection. Options were discussed with patient about lab work due to the abdominal pain. She does admit that it's been for 3 weeks. She is declining lab work at this time stating that she feels comfortable following up with her surgeon. Patient is advised to return to emergency room if symptoms increase worsen appropriate concerns. Disposition Clinical Impression: Acute sinusitis, Abdominal pain Disposition: HOME SELF-CARE Condition: Good Instructions: Sinusitis (ED) Additional Instructions: Please use medication as discussed. Please follow-up with surgeon/family doctor in the next 2 days. Please return to emergency room if the symptoms increase or worsen or for any other concerns. Prescriptions: Azithromycin [Zithromax Z-pack] 0 mg PO DIRECTED #6 tab Fluticasone Propionate [Flonase Allergy Relief] 1 - 2 spray EA NOSTRIL DAILY 5 Days ml predniSONE 40 mg PO DAILY 5 Days tab Referrals: None,Stated [Primary Care Provider] - 1-2 days Robi Austin MD [STAFF PHYSICIAN] - 1-2 days Time of Disposition: 19:46
== END 2017-03-22 20:02 | disposition home or self-care (01) ==
LOC: EC 17:17
DX: J01.90 Acute sinusitis, unspecified (principal); R10.9 Unspecified abdominal pain; Z86.14 Personal history of Methicillin resistant Staphylococcus aureus infection; Z87.891 Personal history of nicotine dependence; Z98.890 Other specified postprocedural states
CPT/HCPCS: 71020; 93005; 99284

== ENCOUNTER 2017-03-24 14:52 | Emergency (ER) | payer OTHER ==
--- NOTE | 2017-03-24 15:40 | ED ---
General Adult HPI - General Chief complaint: Shortness of Breath Stated complaint: Allergic Reaction Time Seen by Provider: 03/24/17 14:55 Source: patient, RN notes reviewed Mode of arrival: ambulatory Limitations: no limitations - History of Present Illness Initial comments: This is a 21-year-old female presents emergency department after having been seen 2 days ago. Patient states she was given Flonase and Zithromax and prednisone. Patient states after she took the Zithromax and prednisone today she became very lightheaded within 20 minutes and thought she might pass out she did not however pass out. Patient states on the way here she was also very nauseated. Patient states all symptoms resolved within 20 minutes. Patient states currently she is asymptomatic except for the fact she still has congestion which is what she came in for the first time. Patient denies any fever chills today patient denies any difficulty breathing currently patient denies any chest pain or palpitations. Patient denies abdominal pain patient denies nausea vomiting diarrhea. - Related Data Home Medications Medication Instructions Recorded Confirmed Azithromycin [Zithromax Z-pack] See Taper PO DAILY 03/24/17 03/24/17 D-Methorphan/PE/Acetaminophen 1 cap PO DAILY PRN 03/24/17 03/24/17 [Vicks Dayquil Liquicaps] Previous Rx's Medication Instructions Recorded Fluticasone Propionate [Flonase 1 - 2 spray EA NOSTRIL DAILY 5 03/22/17 Allergy Relief] Days ml predniSONE 40 mg PO DAILY 5 Days tab 03/22/17 Ciprofloxacin HCl [Cipro] 500 mg PO Q12HR #20 tablet 03/24/17 Allergies Allergy/AdvReac Type Severity Reaction Status Date / Time No Known Allergies Allergy Verified 03/24/17 15:18 Review of Systems ROS Statement: Those systems with pertinent positive or pertinent negative responses have been documented in the HPI. ROS Other: All systems not noted in ROS Statement are negative. 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 Patient is nontoxic and well- hydrated and is in mild distress. ENT: Neck is soft and supple. No significant lymphadenopathy is noted. Oropharynx is clear. Moist mucous membranes. Neck has full range of motion without eliciting any pain. EYES: The sclera were anicteric and conjunctiva were pink and moist. Extraocular movements were intact and pupils were equal round and reactive to light. Eyelids were unremarkable. PULMONARY: Unlabored respirations. Good breath sounds bilaterally. No audible rales rhonchi or wheezing was noted. CARDIOVASCULAR: There is a regular rate and rhythm without any murmurs gallops or rubs. ABDOMEN: Soft and nontender with normal bowel sounds. No palpable organomegaly was noted. There is no palpable pulsatile mass. SKIN: Skin is clear with no lesions or rashes and otherwise unremarkable. NEUROLOGIC: Patient is alert and oriented x3. Cranial nerves II through XII are grossly intact. Motor and sensory are also intact. Normal speech, volume and content. Symmetrical smile. MUSCULOSKELETAL: Normal extremities with adequate strength and full range of motion. No lower extremity swelling or edema. No calf tenderness. LYMPHATICS: No significant lymphadenopathy is noted PSYCHIATRIC: Patient is mildly anxious Limitations: no limitations Course Vital Signs 03/24/17 03/24/17 03/24/17 14:54 15:16 16:38 Temperature 97.3 F L Pulse Rate 111 H 90 Respiratory 28 H 20 18 Rate Blood Pressure 139/90 130/60 O2 Sat by Pulse 100 98 Oximetry Medical Decision Making - Medical Decision Making EKG shows normal sinus rhythm at 84 bpm AR interval 154 QRS is 94 QT interval 364 QTC is 4:30 per patient's EKG shows no ST segment elevation or T-wave abnormality. Patient has been without symptoms while in the emergency department. Patient believes that her symptoms today were caused by the antibiotic so we will switch antibiotics. - Lab Data Result diagrams: 03/24/17 15:50 03/24/17 15:50 Lab Results 03/24/17 03/24/17 03/24/17 Range/Units 15:50 15:50 15:50 WBC 8.5 (3.8-10.6) k/uL RBC 4.29 (3.80-5.40) m/uL Hgb 12.5 (11.4-16.0) gm/dL Hct 38.8 (34.0-46.0) % MCV 90.5 (80.0-100.0) fL MCH 29.2 (25.0-35.0) pg MCHC 32.3 (31.0-37.0) g/dL RDW 13.4 (11.5-15.5) % Plt Count 213 (150-450) k/uL Neutrophils % 77 % Lymphocytes % 16 % Monocytes % 5 % Eosinophils % 1 % Basophils % 0 % Neutrophils # 6.6 (1.3-7.7) k/uL Lymphocytes # 1.4 (1.0-4.8) k/uL Monocytes # 0.4 (0-1.0) k/uL Eosinophils # 0.1 (0-0.7) k/uL Basophils # 0.0 (0-0.2) k/uL D-Dimer 0.27 (<0.60) mg/L FEU Sodium 139 (137-145) mmol/L Potassium 3.4 L (3.5-5.1) mmol/L Chloride 107 (98-107) mmol/L Carbon Dioxide 24 (22-30) mmol/L Anion Gap 8 mmol/L BUN 13 (7-17) mg/dL Creatinine 0.60 (0.52-1.04) mg/dL Est GFR (MDRD) Af Amer >60 (>60 ml/min/1.73 sqM) Est GFR (MDRD) Non-Af >60 (>60 ml/min/1.73 sqM) Glucose 86 (74-99) mg/dL Calcium 9.2 (8.4-10.2) mg/dL Total Bilirubin 0.2 (0.2-1.3) mg/dL AST 21 (14-36) U/L ALT 42 (9-52) U/L Alkaline Phosphatase 45 (38-126) U/L Total Protein 6.6 (6.3-8.2) g/dL Albumin 3.8 (3.5-5.0) g/dL Disposition Clinical Impression: Adverse drug reaction Disposition: HOME SELF-CARE Condition: Good Prescriptions: Ciprofloxacin HCl [Cipro] 500 mg PO Q12HR #20 tablet Referrals: None,Stated [Primary Care Provider] - 1-2 days Time of Disposition: 17:06
[2017-03-24 16:05] LABS: Basophils % (A) 0 %; CH 29.3; CHCM 32.5; Eosinophils # (A) 0.1 k/uL (0-0.7); Eosinophils % (A) 1 %; HCT 38.8 % (34.0-46.0); HGB 12.5 gm/dL (11.4-16.0); Luc # (Auto) 0.05; Luc % (Auto) 1; Lymphocytes # (A) 1.4 k/uL (1.0-4.8); Lymphocytes % (A) 16 %; MCH 29.2 pg (25.0-35.0); MCHC 32.3 g/dL (31.0-37.0); MCV 90.5 fL (80.0-100.0); Mean Platelet Volume 8.6; Monocytes # (A) 0.4 k/uL (0-1.0); Monocytes % (A) 5 %; Neutrophils # (A) 6.6 k/uL (1.3-7.7); Neutrophils % (A) 77 %; RBC 4.29 m/uL (3.80-5.40); RDW 13.4 % (11.5-15.5); WBC 8.5 k/uL (3.8-10.6); WBC (Perox) 8.72
[2017-03-24 16:21] LABS: ALT 42 U/L (9-52); AST 21 U/L (14-36); Alkaline Phosphatase 45 U/L (38-126); Anion Gap 8 mmol/L; Blood Urea Nitrogen 13 mg/dL (7-17); Calcium 9.2 mg/dL (8.4-10.2); Carbon Dioxide 24 mmol/L (22-30); Chloride 107 mmol/L (98-107); Glucose 86 mg/dL (74-99); Non-African American GFR(MDRD) >60 (>60 ml/min/1.73 sqM); Potassium 3.4 mmol/L (3.5-5.1); Sodium 139 mmol/L (137-145); Total Bilirubin 0.2 mg/dL (0.2-1.3); Total Protein 6.6 g/dL (6.3-8.2)
[2017-03-24 16:39] VITALS: RESP 18
[2017-03-24 17:36] VITALS: BP 131/31; PULSE 89; TEMP 98
== END 2017-03-24 17:36 | disposition home or self-care (01) ==
LOC: EC 14:52
DX: R42 Dizziness and giddiness (principal); R11.0 Nausea; R09.89 Other specified symptoms and signs involving the circulatory and respiratory systems; T50.905A Adverse effect of unspecified drugs, medicaments and biological substances, initial encounter; Z86.14 Personal history of Methicillin resistant Staphylococcus aureus infection; Z87.891 Personal history of nicotine dependence
CPT/HCPCS: 36415; 80053; 85025; 85379; 93005; 99285

== ENCOUNTER 2017-09-26 16:53 | Emergency (ER) | payer OTHER ==
[2017-09-26 17:09] VITALS: BP 115/53; PULSE 87; RESP 18; TEMP 98.7
[2017-09-26] MEDS ORDERED: IBUPROFEN 600 MG STARTER PACK 4 TAB BTL PO STA (17:30)
[2017-09-26] MEDS ORDERED: ACETAMINOPHEN TAB 500 MG TAB PO STA (17:30)
--- NOTE | 2017-09-26 17:30 | ED ---
Head Injury HPI - General Chief complaint: Head Injury Stated complaint: Head Injury, Dizzy Time Seen by Provider: 09/26/17 17:07 Source: patient, RN notes reviewed, old records reviewed Mode of arrival: ambulatory Limitations: no limitations - History of Present Illness Initial comments: This patient is a 21-year-old female chief complaint of the minor head injury. She reports that she was doing errands around her house. She says she stood up and a light fell on the left side of her scalp. She states that she had no loss of consciousness. She reports that she felt some minor dizziness. She complains of pain over the hematoma on the left branch maker. Denies any other symptoms. - Related Data Previous Rx's Medication Instructions Recorded Ibuprofen [Motrin] 600 mg PO Q8HR PRN #20 tab 09/26/17 Allergies/Adverse reactions: Allergies Allergy/AdvReac Type Severity Reaction Status Date / Time No Known Allergies Allergy Verified 09/26/17 17:10 Review of Systems ROS Statement: Those systems with pertinent positive or pertinent negative responses have been documented in the HPI. ROS Other: All systems not noted in ROS Statement are negative. 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 no distress. Limitations: no limitations General appearance: alert, in no apparent distress Head exam: Present: atraumatic, normocephalic, normal inspection, other ( contusion over left parietal scalp. ) Eye exam: Present: normal appearance, PERRL, EOMI. Absent: scleral icterus, conjunctival injection, periorbital swelling ENT exam: Present: normal exam, mucous membranes moist Respiratory exam: Present: normal lung sounds bilaterally. Absent: respiratory distress, wheezes, rales, rhonchi, stridor Cardiovascular Exam: Present: regular rate, normal rhythm, normal heart sounds. Absent: systolic murmur, diastolic murmur, rubs, gallop, clicks GI/Abdominal exam: Present: soft, normal bowel sounds. Absent: distended, tenderness, guarding, rebound, rigid Extremities exam: Present: normal inspection, full ROM, normal capillary refill. Absent: tenderness, pedal edema, joint swelling, calf tenderness Back exam: Present: normal inspection Neurological exam: Present: alert, oriented X3, CN II-XII intact Expanded Patient oriented to: Present: person, place, time Speech: Present: fluid speech Cranial nerves: EOM's Intact: Normal Cerebellar function: Finger to Nose: Normal Upper motor neuron: Pronator Drift: Normal Sensory exam: Upper Extremity Light Touch: Normal, Lower Extremity Light Touch: Normal Motor strength exam: RUE: 5, LUE: 5, RLE: 5, LLE: 5 Eye Response: (4) open spontaneously Motor Response: (6) obeys commands Verbal Response: (5) oriented [place] Total: 15 Psychiatric exam: Present: normal affect, normal mood Course Vital Signs 09/26/17 09/26/17 17:05 18:01 Temperature 98.7 F 98.7 F Pulse Rate 87 87 Respiratory 18 18 Rate Blood Pressure 115/53 115/53 O2 Sat by Pulse 99 99 Oximetry Medical Decision Making - Medical Decision Making This patient is a 21-year-old female chief complaint of the minor head injury. She reports that she was doing errands around her house. She says she stood up and a light fell on the left side of her scalp. She states that she had no loss of consciousness. She reports that she felt some minor dizziness.GCS of 15. No neurological deficit's. Discussed with the mechanism of injury I concern for any dramatic brain injury. She does have us again a small hematoma on the left proud scale. She can take Motrin and Tylenol for pain. Patient was offered CT scan but she says that she would do prefer wait and watch method. All questions answered return parameters were discussed. Disposition Clinical Impression: Minor head injury without loss of consciousness, Forehead contusion Disposition: HOME SELF-CARE Condition: Good Instructions: Head Injury (ED) Additional Instructions: Patient needs to be monitored. Take Motrin Tylenol for headache or pain. Ice the area. Return to emergency department if there is any alarming signs or symptoms including vomiting, or signs of altered mental status. Prescriptions: Ibuprofen [Motrin] 600 mg PO Q8HR PRN #20 tab PRN Reason: Pain Is patient prescribed a controlled substance at d/c from ED?: No If prescribed controlled substance>3 days was MAPS reviewed?: No When asked, does pt state using other controlled substances?: No Referrals: None,Stated [Primary Care Provider] - 1-2 days Oxana Tate MD [STAFF PHYSICIAN] - 1-2 days Bib Zimmerman MD [STAFF PHYSICIAN] - 1-2 days
== END 2017-09-26 18:01 | disposition home or self-care (01) ==
LOC: EC 16:53
DX: S00.83XA Contusion of other part of head, initial encounter (principal); R40.2142 Coma scale, eyes open, spontaneous, at arrival to emergency department; R40.2252 Coma scale, best verbal response, oriented, at arrival to emergency department; R40.2362 Coma scale, best motor response, obeys commands, at arrival to emergency department; Z86.14 Personal history of Methicillin resistant Staphylococcus aureus infection; Z87.891 Personal history of nicotine dependence; W20.8XXA Other cause of strike by thrown, projected or falling object, initial encounter; Y92.009 Unspecified place in unspecified non-institutional (private) residence as the place of occurrence of the external cause; Y93.89 Activity, other specified
CPT/HCPCS: 99283

== ENCOUNTER 2017-09-29 07:35 | Emergency (ER) | payer OTHER ==
[2017-09-29 07:40] VITALS: TEMP 99
[2017-09-29] MEDS ORDERED: SODIUM CHLORIDE 0.9% 1,000 ML IV STA (08:13)
[2017-09-29] MEDS ORDERED: FAMOTIDINE 20 MG/2 ML VIAL IV STA (08:13)
[2017-09-29] MEDS ORDERED: ONDANSETRON 4 MG/2 ML VIAL IVP STA ×2 (08:13→10:09)
[2017-09-29] MEDS ORDERED: DICYCLOMINE 10 MG/ML 2 ML AMP IM STA (08:14)
--- NOTE | 2017-09-29 08:17 | ED ---
General Adult HPI - General Chief complaint: Nausea/Vomiting/Diarrhea Stated complaint: Vomiting and diarrhea Time Seen by Provider: 09/29/17 07:56 Source: patient, RN notes reviewed Mode of arrival: ambulatory Limitations: no limitations - History of Present Illness Initial comments: Patient is a pleasant 21-year-old female presenting to the emergency department with complaints of vomiting and diarrhea. Onset of symptoms was around 3 or 4 in the morning. Patient has vomited multiple times. Patient has had diarrhea multiple times. No abdominal pain. Patient still feels nauseous. Patient is starting to feel lightheaded and has concerns she could becoming dehydrated. Patient adds she did strike her head 3 days ago however has not been having any problems prior to vomiting and diarrhea several hours ago. - Related Data Previous Rx's Medication Instructions Recorded Ibuprofen [Motrin] 600 mg PO Q8HR PRN #20 tab 09/26/17 Famotidine [Pepcid] 20 mg PO BID #30 tablet 09/29/17 Ondansetron Odt [Zofran Odt] 4 mg PO Q8HR PRN #10 tab 09/29/17 Allergies Allergy/AdvReac Type Severity Reaction Status Date / Time No Known Allergies Allergy Verified 09/29/17 07:51 Review of Systems ROS Statement: Those systems with pertinent positive or pertinent negative responses have been documented in the HPI. ROS Other: All systems not noted in ROS Statement are negative. Constitutional: Denies: fever Eyes: Denies: eye pain ENT: Denies: ear pain Respiratory: Denies: cough Cardiovascular: Denies: chest pain Endocrine: Denies: fatigue Gastrointestinal: Reports: nausea, vomiting, diarrhea. 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 Absent: nystagmus ENT exam: Present: normal oropharynx Neck exam: Present: normal inspection Respiratory exam: Present: normal lung sounds bilaterally Cardiovascular Exam: Present: regular rate, normal rhythm GI/Abdominal exam: Present: soft, normal bowel sounds. Absent: distended, tenderness, guarding, rebound, rigid Extremities exam: Present: normal inspection Neurological exam: Present: alert, CN II-XII intact, normal gait. Absent: motor sensory deficit Expanded Motor strength exam: RUE: 5, LUE: 5, RLE: 5, LLE: 5 Eye Response: (4) open spontaneously Motor Response: (6) obeys commands Verbal Response: (5) oriented Psychiatric exam: Present: normal affect, normal mood Skin exam: Present: normal color Course Vital Signs 09/29/17 09/29/17 09/29/17 07:37 08:43 10:57 Temperature 99 F Pulse Rate 90 93 97 Respiratory 16 18 18 Rate Blood Pressure 122/75 113/64 O2 Sat by Pulse 100 100 100 Oximetry - Reevaluation(s) Reevaluation #1: 09/29/17 10:09 Patient reevaluated and states she was feeling better however is starting to have some more abdominal discomfort. Nausea is starting to return. Abdomen is soft with mild tenderness right upper quadrant and periumbilical. 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 Patient is comfortable with discharge home. Patient updated on results. Medical Decision Making - Lab Data Result diagrams: 09/29/17 08:26 09/29/17 08:26 Lab Results 09/29/17 09/29/17 09/29/17 Range/Units 08:23 08:23 08:26 WBC 9.0 (3.8-10.6) k/uL RBC 4.73 (3.80-5.40) m/uL Hgb 13.9 (11.4-16.0) gm/dL Hct 43.1 (34.0-46.0) % MCV 91.2 (80.0-100.0) fL MCH 29.3 (25.0-35.0) pg MCHC 32.1 (31.0-37.0) g/dL RDW 12.9 (11.5-15.5) % Plt Count 223 (150-450) k/uL Neutrophils % 69 % Lymphocytes % 24 % Monocytes % 3 % Eosinophils % 3 % Basophils % 0 % Neutrophils # 6.2 (1.3-7.7) k/uL Lymphocytes # 2.2 (1.0-4.8) k/uL Monocytes # 0.3 (0-1.0) k/uL Eosinophils # 0.2 (0-0.7) k/uL Basophils # 0.0 (0-0.2) k/uL Sodium (137-145) mmol/L Potassium (3.5-5.1) mmol/L Chloride (98-107) mmol/L Carbon Dioxide (22-30) mmol/L Anion Gap mmol/L BUN (7-17) mg/dL Creatinine (0.52-1.04) mg/dL Est GFR (CKD-EPI)AfAm (>60 ml/min/1.73 sqM) Est GFR (CKD-EPI)NonAf (>60 ml/min/1.73 sqM) Glucose (74-99) mg/dL Calcium (8.4-10.2) mg/dL Total Bilirubin (0.2-1.3) mg/dL AST (14-36) U/L ALT (9-52) U/L Alkaline Phosphatase (38-126) U/L Total Protein (6.3-8.2) g/dL Albumin (3.5-5.0) g/dL Urine Color Yellow Urine Appearance Cloudy H (Clear) Urine pH 6.0 (5.0-8.0) Ur Specific [place] 1.024 (1.001-1.035) Urine Protein Trace H (Negative) Urine Glucose (UA) Negative (Negative) Urine Ketones Negative (Negative) Urine Blood Negative (Negative) Urine Nitrite Negative (Negative) Urine Bilirubin Negative (Negative) Urine Urobilinogen <2.0 (<2.0) mg/dL Ur Leukocyte Esterase Negative (Negative) Urine RBC 2 (0-5) /hpf Urine WBC 3 (0-5) /hpf Ur Squamous Epith Cells 18 H (0-4) /hpf Urine Mucus Occasional H (None) /hpf Urine HCG, Qual Not Detected (Not Detectd) 09/29/17 Range/Units 08:26 WBC (3.8-10.6) k/uL RBC (3.80-5.40) m/uL Hgb (11.4-16.0) gm/dL Hct (34.0-46.0) % MCV (80.0-100.0) fL MCH (25.0-35.0) pg MCHC (31.0-37.0) g/dL RDW (11.5-15.5) % Plt Count (150-450) k/uL Neutrophils % % Lymphocytes % % Monocytes % % Eosinophils % % Basophils % % Neutrophils # (1.3-7.7) k/uL Lymphocytes # (1.0-4.8) k/uL Monocytes # (0-1.0) k/uL Eosinophils # (0-0.7) k/uL Basophils # (0-0.2) k/uL Sodium 143 (137-145) mmol/L Potassium 4.2 (3.5-5.1) mmol/L Chloride 108 H (98-107) mmol/L Carbon Dioxide 26 (22-30) mmol/L Anion Gap 9 mmol/L BUN 14 (7-17) mg/dL Creatinine 0.61 (0.52-1.04) mg/dL Est GFR (CKD-EPI)AfAm >90 (>60 ml/min/1.73 sqM) Est GFR (CKD-EPI)NonAf >90 (>60 ml/min/1.73 sqM) Glucose 94 (74-99) mg/dL Calcium 9.3 (8.4-10.2) mg/dL Total Bilirubin 0.2 (0.2-1.3) mg/dL AST 62 H (14-36) U/L ALT 80 H (9-52) U/L Alkaline Phosphatase 53 (38-126) U/L Total Protein 6.7 (6.3-8.2) g/dL Albumin 4.1 (3.5-5.0) g/dL Urine Color Urine Appearance (Clear) Urine pH (5.0-8.0) Ur Specific [place] (1.001-1.035) Urine Protein (Negative) Urine Glucose (UA) (Negative) Urine Ketones (Negative) Urine Blood (Negative) Urine Nitrite (Negative) Urine Bilirubin (Negative) Urine Urobilinogen (<2.0) mg/dL Ur Leukocyte Esterase (Negative) Urine RBC (0-5) /hpf Urine WBC (0-5) /hpf Ur Squamous Epith Cells (0-4) /hpf Urine Mucus (None) /hpf Urine HCG, Qual (Not Detectd) - Radiology Data Radiology results: report reviewed (Computed tomography scan of the abdomen pelvis shows no acute abnormality. There is sinus inversus.) Disposition Clinical Impression: Nausea vomiting and diarrhea Disposition: HOME SELF-CARE Condition: Stable Instructions: Acute Nausea and Vomiting (ED), Acute Diarrhea (ED) Additional Instructions: Please follow-up with primary care physician in the next couple of days for recheck. [id number] Imodium as needed for diarrhea. Return for increased abdominal pain, not tolerating fluids, worsening or changing symptoms , fevers, or other concerns. Prescriptions: Famotidine [Pepcid] 20 mg PO BID #30 tablet Ondansetron Odt [Zofran Odt] 4 mg PO Q8HR PRN #10 tab PRN Reason: Nausea Is patient prescribed a controlled substance at d/c from ED?: No Referrals: Martin Nina DO [STAFF PHYSICIAN] - 1-2 days Time of Disposition: 11:26
[2017-09-29 08:36] LABS: Appearance,Urine Cloudy (Clear); Bilirubin,Urine Negative (Negative); Blood,Urine Negative (Negative); Color,Urine Yellow; Glucose,Urine (UA) Negative (Negative); Ketones,Urine Negative (Negative); Leukocyte Esterase,Urine Negative (Negative); Mucus,Urine Occasional /hpf; Nitrite,Urine Negative (Negative); Protein,Urine Trace (Negative); RBC,Urine 2 /hpf (0-5); Specific Gravity,Urine 1.024 (1.001-1.035); Squamous Epithelial Cell,Urine 18 /hpf (0-4); Urobilinogen,Urine <2.0 mg/dL (<2.0); WBC,Urine 3 /hpf (0-5)
[2017-09-29 08:40] LABS: Basophils % (A) 0 %; Eosinophils # (A) 0.2 k/uL (0-0.7); Eosinophils % (A) 3 %; HCT 43.1 % (34.0-46.0); HGB 13.9 gm/dL (11.4-16.0); Lymphocytes # (A) 2.2 k/uL (1.0-4.8); Lymphocytes % (A) 24 %; MCH 29.3 pg (25.0-35.0); MCHC 32.1 g/dL (31.0-37.0); MCV 91.2 fL (80.0-100.0); Mean Platelet Volume 8.1; Monocytes # (A) 0.3 k/uL (0-1.0); Monocytes % (A) 3 %; Neutrophils # (A) 6.2 k/uL (1.3-7.7); Neutrophils % (A) 69 %; Platelet Count 223 k/uL (150-450); RBC 4.73 m/uL (3.80-5.40); RDW 12.9 % (11.5-15.5)
[2017-09-29 08:45] VITALS: RESP 18
[2017-09-29 08:51] LABS: ALT 80 U/L (9-52); AST 62 U/L (14-36); Albumin 4.1 g/dL (3.5-5.0); Alkaline Phosphatase 53 U/L (38-126); Anion Gap 9 mmol/L; Blood Urea Nitrogen 14 mg/dL (7-17); Calcium 9.3 mg/dL (8.4-10.2); Carbon Dioxide 26 mmol/L (22-30); Chloride 108 mmol/L (98-107); Glucose 94 mg/dL (74-99); Potassium 4.2 mmol/L (3.5-5.1); Sodium 143 mmol/L (137-145); Total Bilirubin 0.2 mg/dL (0.2-1.3); Total Protein 6.7 g/dL (6.3-8.2)
[2017-09-29] MEDS ORDERED: RX INFO: IV CONTRAST WAS GIVEN 1 EACH MISC MISCELLANE PRN (10:08)
[2017-09-29] MEDS ORDERED: MORPHINE SULFATE 4 MG/ML SYRINGE IVP STA (10:09)
--- NOTE | 2017-09-29 10:48 | CT ---
EXAMINATION TYPE: CT abdomen pelvis w con DATE OF EXAM: 09/29/2017 COMPARISON: Prior CT abdomen pelvis 10/06/2016 HISTORY: Nausea and vomiting CT DLP: 518.0 mGycm Automated exposure control for dose reduction was used. TECHNIQUE: Helical acquisition of images from the lung bases through the pelvis have been completed. CONTRAST: Performed without Oral Contrast and with IV Contrast, patient injected with 100 mL of Isovue 300. FINDINGS: Situs inversus with dextrocardia is again noted. Small umbilical hernia contains fat. LUNG BASES: No significant abnormality is appreciated. AORTA: No significant abnormality is appreciated. LIVER/GB: No significant abnormality is appreciated. PANCREAS: No significant abnormality is seen. SPLEEN: No significant abnormality is seen. ADRENALS: No significant abnormality is seen. KIDNEYS: No significant abnormality is seen. REPRODUCTIVE ORGANS: Suspect small left ovarian cyst may be present. Small amount of free fluid in th e pelvis. BOWEL: No significant abnormality is seen. FREE AIR: No Free Air visible. PELVIC ADENOPATHY: None visualized. RETROPERITONEAL ADENOPATHY: No Retroperitoneal Adenopathy visible. URINARY BLADDER: No significant abnormality is seen. OSSEOUS STRUCTURES: No significant abnormality is seen. IMPRESSION: NO ACUTE ABNORMALITY. CONGENITAL ANOMALY.
[2017-09-29 10:58] VITALS: BP 113/64; PULSE 97
== END 2017-09-29 11:52 | disposition home or self-care (01) ==
LOC: EC 07:35
DX: R11.2 Nausea with vomiting, unspecified (principal); R19.7 Diarrhea, unspecified; R42 Dizziness and giddiness; Z86.14 Personal history of Methicillin resistant Staphylococcus aureus infection; Z90.49 Acquired absence of other specified parts of digestive tract
CPT/HCPCS: 36415; 80053; 85025; 81001; 81025; 74177; 99284; 96374; 96375 ×2; 96376; 96361 ×2; 96372; J2270; J0500; J2405; Q9967

== ENCOUNTER 2017-10-07 01:44 | Emergency (ER) | payer OTHER ==
[2017-10-07 01:48] VITALS: PULSE 80; RESP 18
--- NOTE | 2017-10-07 03:05 | ED ---
Chest Pain HPI - General Chief Complaint: Chest Pain Stated Complaint: chest pain Time Seen by Provider: 10/07/17 02:16 Source: patient Mode of arrival: ambulatory Limitations: no limitations - History of Present Illness Initial Comments: This patient is 21-year-old woman who presents with complaint of pain in the right axillary line of the right chest. She states that it started around 9 PM at work. She states it is an aching type of pain, moderate intensity. she notes that he gets better if she holds that area of her chest. No worsening factors. MD Complaint: chest pain Onset/Timin -: hour(s) Onset: other (While working) Pain Location: right chest Pain Radiation: none Severity: moderate Quality: dull Consistency: constant Improves With: other (Holding her chest) Worsens With: nothing Treatments Prior to Arrival: other (Tylenol) - Related Data Previous Rx's Medication Instructions Recorded Ibuprofen [Motrin] 600 mg PO Q8HR PRN #20 tab 09/26/17 Famotidine [Pepcid] 20 mg PO BID #30 tablet 09/29/17 Ondansetron Odt [Zofran Odt] 4 mg PO Q8HR PRN #10 tab 09/29/17 Ibuprofen [Motrin] 600 mg PO Q8HR PRN #20 tab 10/07/17 Allergies Allergy/AdvReac Type Severity Reaction Status Date / Time No Known Allergies Allergy Verified 10/07/17 01:48 Review of Systems ROS Statement: Those systems with pertinent positive or pertinent negative responses have been documented in the HPI. ROS Other: All systems not noted in ROS Statement are negative. Constitutional: Denies: fever, chills Respiratory: Denies: cough, dyspnea, wheezes Cardiovascular: Reports: chest pain. Denies: palpitations, edema, syncope Gastrointestinal: Denies: abdominal pain, nausea, vomiting Genitourinary: Denies: dysuria, hematuria Musculoskeletal: Denies: back pain Skin: Denies: rash Neurological: Denies: headache, weakness, numbness EKG Findings - EKG Comments: EKG Findings:: There are T inversions in V2 and V3, these are present on the comparison EKG previously. 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 Absent: scleral icterus, conjunctival injection ENT exam: Present: normal oropharynx Respiratory exam: Present: normal lung sounds bilaterally. Absent: respiratory distress, wheezes, rales, rhonchi, stridor Cardiovascular Exam: Present: regular rate, normal rhythm, normal heart sounds. Absent: systolic murmur, diastolic murmur, rubs, gallop GI/Abdominal exam: Present: soft. Absent: distended, tenderness, guarding, rebound, rigid, mass Extremities exam: Present: normal inspection, normal capillary refill. Absent: pedal edema, calf tenderness Neurological exam: Present: alert Skin exam: Present: warm, dry, intact, normal color. Absent: rash Course Vital Signs 10/07/17 01:45 Temperature 98.3 F Pulse Rate 80 Respiratory 18 Rate Blood Pressure 112/56 O2 Sat by Pulse 100 Oximetry Disposition Clinical Impression: Atypical chest pain Disposition: HOME SELF-CARE Condition: Good Instructions: Chest Pain (ED) Prescriptions: Ibuprofen [Motrin] 600 mg PO Q8HR PRN #20 tab PRN Reason: Pain Is patient prescribed a controlled substance at d/c from ED?: No Referrals: None,Stated [Primary Care Provider] - 1-2 days
--- NOTE | 2017-10-07 03:10 | XR ---
EXAMINATION TYPE: XR chest 2V DATE OF EXAM: 10/07/2017 COMPARISON: 03/22/2017 HISTORY: Chest pain TECHNIQUE: Frontal and lateral views of the chest are obtained. 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 Stomach bubble is on the left side. There is levocardia. Heart an d mediastinum are normal. Lungs are clear. There is no pleural effusion. Bony thorax is intact. IMPRESSION: Situs inversus. Normal chest. No change.
[2017-10-07 03:42] VITALS: BP 113/57; TEMP 98
== END 2017-10-07 03:42 | disposition home or self-care (01) ==
LOC: EC 01:44
DX: R07.89 Other chest pain (principal); Z87.891 Personal history of nicotine dependence; Z86.14 Personal history of Methicillin resistant Staphylococcus aureus infection
CPT/HCPCS: 71046; 93005; 99285

== ENCOUNTER 2017-12-20 08:43 | Emergency (ER) | payer OTHER ==
[2017-12-20 08:51] VITALS: BP 116/73; PULSE 83; RESP 18; TEMP 98.4
--- NOTE | 2017-12-20 09:08 | ED ---
General Adult HPI - General Chief complaint: Upper Respiratory Infection Stated complaint: Cough Time Seen by Provider: 12/20/17 08:54 Source: patient, RN notes reviewed Mode of arrival: ambulatory Limitations: no limitations - History of Present Illness Initial comments: This a 22-year-old female presents to the emergency Department with chief complaint of cough. Mom states that she's had a cough for 2 days she believes that she has sick from her daughter has some her symptoms. She reports no fever no chills. She has not used any [id number] counter cough and cold medications. Patient is a former smoker though still uses marijuana. Patient denies any ear pain, headache, dizziness, shortness breath, nausea vomiting diarrhea constipation. Patient has mild sore throat. - Related Data Home Medications Medication Instructions Recorded Confirmed Biotin 10,000 mcg PO DAILY 12/20/17 12/20/17 Previous Rx's Medication Instructions Recorded predniSONE 50 mg PO DAILY #5 tab 12/20/17 Allergies Allergy/AdvReac Type Severity Reaction Status Date / Time No Known Allergies Allergy Verified 12/20/17 09:02 Review of Systems ROS Statement: Those systems with pertinent positive or pertinent negative responses have been documented in the HPI. ROS Other: All systems not noted in ROS Statement are negative. 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 History of Any Multi-Drug Resistant Organisms: MRSA Date of last positivie culture/infection: 2012 MDRO Source:: LEFT GROIN Past Surgical History: Appendectomy Past Psychological History: No Psychological Hx Reported Smoking Status: Former smoker Past Alcohol Use History: Occasional Past Drug Use History: Marijuana - Past Family History Mother Family Medical History: Cancer Father Family Medical History: Hypertension General Exam Limitations: no limitations General appearance: alert, in no apparent distress Head exam: Present: atraumatic, normocephalic, normal inspection Eye exam: Present: normal appearance, PERRL, EOMI. Absent: scleral icterus, conjunctival injection, periorbital swelling ENT exam: Present: normal exam, normal oropharynx, mucous membranes moist, TM's normal bilaterally, normal external ear exam Neck exam: Present: normal inspection, full ROM. Absent: tenderness, meningismus, lymphadenopathy Respiratory exam: Present: normal lung sounds bilaterally. Absent: respiratory distress, wheezes, rales, rhonchi, stridor Cardiovascular Exam: Present: regular rate, normal rhythm, normal heart sounds. Absent: systolic murmur, diastolic murmur, rubs, gallop, clicks Course Vital Signs 12/20/17 08:43 Temperature 98.4 F Pulse Rate 83 Respiratory 18 Rate Blood Pressure 116/73 O2 Sat by Pulse 96 Oximetry Medical Decision Making - Medical Decision Making 22-year-old female presented from for cough congestion. She has acute bronchitis she'll be given steroids she is advised to not smoke. She is also advised to use [id number] cough and cold medications. Disposition Clinical Impression: Bronchitis Disposition: HOME SELF-CARE Condition: Stable Instructions: Acute Bronchitis (ED) Additional Instructions: Please return to the Emergency Department if symptoms worsen or any other concerns. Prescriptions: predniSONE 50 mg PO DAILY #5 tab Is patient prescribed a controlled substance at d/c from ED?: No Referrals: Fermín Sanabria MD [Primary Care Provider] - 1-2 days Time of Disposition: 09:42
--- NOTE | 2017-12-20 09:23 | XR ---
EXAMINATION TYPE: XR chest 2V DATE OF EXAM: 12/20/2017 COMPARISON: Chest x-ray October 07, 2017. HISTORY: History of situs inversus with cough and pain. TECHNIQUE: Frontal and lateral views of the chest are obtained. FINDINGS: There is no focal air space opacity, pleural effusion, or pneumothorax seen. The cardiac silhouette size is within normal limits. 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 The osseous structures are intact. IMPRESSION: No suspicious acute cardiopulmonary process. No significant change from prior.
== END 2017-12-20 09:51 | disposition home or self-care (01) ==
LOC: EC 08:43
DX: J40 Bronchitis, not specified as acute or chronic (principal); Z86.14 Personal history of Methicillin resistant Staphylococcus aureus infection; Z87.891 Personal history of nicotine dependence; Z79.899 Other long term (current) drug therapy
CPT/HCPCS: 71046; 99283

== ENCOUNTER 2018-04-08 09:43 | Emergency (ER) | payer OTHER ==
[2018-04-08 10:03] VITALS: TEMP 98.3
[2018-04-08] MEDS ORDERED: NITROGLYCERIN SL TABS 0.4 MG TAB SUBLINGUAL STA (10:07)
[2018-04-08] MEDS ORDERED: ASPIRIN 81 MG PO STA (10:07)
[2018-04-08] MEDS ORDERED: SODIUM CHLORIDE 0.9% 1,000 ML IV STA (10:07)
--- NOTE | 2018-04-08 10:13 | ED ---
General Adult HPI - General Chief complaint: Chest Pain Stated complaint: chest pain Time Seen by Provider: 04/08/18 09:59 Source: patient, RN notes reviewed Mode of arrival: ambulatory Limitations: no limitations - History of Present Illness Initial comments: Patient is a pleasant 22-year-old female presenting to the emergency Department with chest discomfort. Onset of symptoms was around 1 AM. Symptoms have been steady since that time. Discomfort feels sharp or pressure on the right side. There is some radiation towards the right shoulder. Discomfort is positional. Discomfort is not worse with deep breaths. Patient does feel there is associated dyspnea, nausea, and sweating. Patient does get similar symptoms a couple of times yearly however does not normally this bad. Patient does have history of dextrocardia. - Related Data Home Medications Medication Instructions Recorded Confirmed No Known Home Medications 04/08/18 04/08/18 Allergies Allergy/AdvReac Type Severity Reaction Status Date / Time No Known Allergies Allergy Verified 04/08/18 10:36 Review of Systems ROS Statement: Those systems with pertinent positive or pertinent negative responses have been documented in the HPI. ROS Other: All systems not noted in ROS Statement are negative. Constitutional: Denies: fever Eyes: Denies: eye pain ENT: Denies: ear pain Respiratory: Reports: as per HPI Cardiovascular: Reports: as per HPI, chest pain Endocrine: Denies: fatigue Gastrointestinal: Reports: nausea. 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, situs inbersus History of Any Multi-Drug Resistant Organisms: MRSA Date of last positivie culture/infection: 2012 MDRO Source:: LEFT GROIN Past Surgical History: Appendectomy Past Psychological History: No Psychological Hx Reported Smoking Status: Former smoker Past Alcohol Use History: Occasional Past Drug Use History: Marijuana - Past Family History Mother Family Medical History: Cancer Father Family Medical History: Hypertension General Exam Limitations: no limitations General appearance: alert, in no apparent distress Head exam: Present: atraumatic Eye exam: Present: normal appearance, PERRL ENT exam: Present: normal oropharynx Neck exam: Present: normal inspection Respiratory exam: Present: normal lung sounds bilaterally, chest wall tenderness (Patient does have tenderness to the sternal and right side of the chest and somewhat to the shoulder) Cardiovascular Exam: Present: regular rate, normal rhythm, normal heart sounds Expanded Peripheral pulses: 2+: Radial (R), Radial (L), Dorsalis Pedis (R), Dorsalis Pedis (L) GI/Abdominal exam: Present: soft. Absent: tenderness Extremities exam: Present: normal inspection. Absent: pedal edema, calf tenderness Neurological exam: Present: alert Psychiatric exam: Present: normal affect, normal mood Skin exam: Present: normal color Course Vital Signs 04/08/18 04/08/18 04/08/18 09:55 09:59 10:00 Temperature 98.3 F Pulse Rate 84 Respiratory 18 Rate Blood Pressure 115/74 O2 Sat by Pulse 98 98 99 Oximetry 04/08/18 04/08/18 04/08/18 10:02 10:04 10:06 Temperature Pulse Rate Respiratory Rate Blood Pressure 115/74 115/74 115/74 O2 Sat by Pulse 97 98 98 Oximetry 04/08/18 04/08/18 04/08/18 10:08 10:10 10:12 Temperature Pulse Rate Respiratory Rate Blood Pressure 115/74 115/74 115/74 O2 Sat by Pulse Oximetry 04/08/18 04/08/18 04/08/18 10:14 10:16 10:18 Temperature Pulse Rate 101 H Respiratory 28 H Rate Blood Pressure 115/74 115/74 115/74 O2 Sat by Pulse 99 Oximetry 04/08/18 04/08/18 04/08/18 10:20 10:22 10:24 Temperature Pulse Rate 77 81 101 H Respiratory 10 L 12 13 Rate Blood Pressure 115/74 115/74 115/74 O2 Sat by Pulse 98 98 Oximetry 04/08/18 04/08/18 04/08/18 10:26 10:28 11:46 Temperature Pulse Rate 84 89 77 Respiratory 18 16 Rate Blood Pressure 115/74 103/68 106/65 O2 Sat by Pulse 96 98 96 Oximetry EKG Findings - EKG Comments: EKG Findings:: Right-sided EKG: Sinus rhythm at 87. [place] 144. QRS 82. QT 370. QTc 445. [place] -60. Downward QRS inferior. Nonspecific T waves. Medical Decision Making - Medical Decision Making Patient reevaluated and resting comfortably in bed. Patient states symptoms have somewhat improved. Patient is updated on results. Patient is felt to be low risk with atypical symptoms and young age and onset of symptoms greater than 6 hours prior to troponin testing. Patient is updated on need for follow- up and is comfortable with discharge home. - Lab Data Result diagrams: 04/08/18 10:10 04/08/18 10:10 Lab Results 04/08/18 04/08/18 04/08/18 Range/Units 10:10 10:10 10:10 WBC 13.0 H (3.8-10.6) k/uL RBC 4.43 (3.80-5.40) m/uL Hgb 13.4 (11.4-16.0) gm/dL Hct 40.0 (34.0-46.0) % MCV 90.4 (80.0-100.0) fL MCH 30.2 (25.0-35.0) pg MCHC 33.4 (31.0-37.0) g/dL RDW 12.4 (11.5-15.5) % Plt Count 230 (150-450) k/uL Neutrophils % 83 % Lymphocytes % 11 % Monocytes % 3 % Eosinophils % 2 % Basophils % 0 % Neutrophils # 10.8 H (1.3-7.7) k/uL Lymphocytes # 1.5 (1.0-4.8) k/uL Monocytes # 0.4 (0-1.0) k/uL Eosinophils # 0.2 (0-0.7) k/uL Basophils # 0.0 (0-0.2) k/uL PT (9.0-12.0) sec INR (<1.2) APTT (22.0-30.0) sec D-Dimer (<0.60) mg/L FEU Sodium 142 (137-145) mmol/L Potassium 4.5 (3.5-5.1) mmol/L Chloride 109 H (98-107) mmol/L Carbon Dioxide 25 (22-30) mmol/L Anion Gap 8 mmol/L BUN 10 (7-17) mg/dL Creatinine 0.61 (0.52-1.04) mg/dL Est GFR (CKD-EPI)AfAm >90 (>60 ml/min/1.73 sqM) Est GFR (CKD-EPI)NonAf >90 (>60 ml/min/1.73 sqM) Glucose 97 (74-99) mg/dL Calcium 9.2 (8.4-10.2) mg/dL Magnesium 1.9 (1.6-2.3) mg/dL Total Bilirubin 0.4 (0.2-1.3) mg/dL AST 21 (14-36) U/L ALT 25 (9-52) U/L Alkaline Phosphatase 55 (38-126) U/L Total Creatine Kinase 97 (30-135) U/L CK-MB (CK-2) 0.5 (0.0-2.4) ng/mL CK-MB (CK-2) Rel Index 0.5 Troponin I <0.012 (0.000-0.034) ng/mL Total Protein 7.2 (6.3-8.2) g/dL Albumin 4.1 (3.5-5.0) g/dL // Range/Units 10:10 WBC (3.8-10.6) k/uL RBC (3.80-5.40) m/uL Hgb (11.4-16.0) gm/dL Hct (34.0-46.0) % MCV (80.0-100.0) fL MCH (25.0-35.0) pg MCHC (31.0-37.0) g/dL RDW (11.5-15.5) % Plt Count (150-450) k/uL Neutrophils % % Lymphocytes % % Monocytes % % Eosinophils % % Basophils % % Neutrophils # (1.3-7.7) k/uL Lymphocytes # (1.0-4.8) k/uL Monocytes # (0-1.0) k/uL Eosinophils # (0-0.7) k/uL Basophils # (0-0.2) k/uL PT 9.6 (9.0-12.0) sec INR 1.0 (<1.2) APTT 25.0 (22.0-30.0) sec D-Dimer 0.40 (<0.60) mg/L FEU Sodium (137-145) mmol/L Potassium (3.5-5.1) mmol/L Chloride (98-107) mmol/L Carbon Dioxide (22-30) mmol/L Anion Gap mmol/L BUN (7-17) mg/dL Creatinine (0.52-1.04) mg/dL Est GFR (CKD-EPI)AfAm (>60 ml/min/1.73 sqM) Est GFR (CKD-EPI)NonAf (>60 ml/min/1.73 sqM) Glucose (74-99) mg/dL Calcium (8.4-10.2) mg/dL Magnesium (1.6-2.3) mg/dL Total Bilirubin (0.2-1.3) mg/dL AST (14-36) U/L ALT (9-52) U/L Alkaline Phosphatase (38-126) U/L Total Creatine Kinase (30-135) U/L CK-MB (CK-2) (0.0-2.4) ng/mL CK-MB (CK-2) Rel Index Troponin I (0.000-0.034) ng/mL Total Protein (6.3-8.2) g/dL Albumin (3.5-5.0) g/dL - Radiology Data Radiology results: image reviewed (Chest x-ray shows situs inversus. No acute process.) Disposition Clinical Impression: Chest pain Disposition: HOME SELF-CARE Condition: Stable Instructions: Chest Pain (ED) Additional Instructions: Please follow-up with primary care physician tomorrow. Return for increased pain, difficulty breathing, worsening or changing symptoms or other concerns. Is patient prescribed a controlled substance at d/c from ED?: No Referrals: Fermín Sanabria MD [Primary Care Provider] - 1-2 days Time of Disposition: 12:11
[2018-04-08] MEDS ORDERED: ONDANSETRON 4 MG/2 ML VIAL IVP STA (10:36)
[2018-04-08 10:47] LABS: Basophils % (A) 0 %; Eosinophils # (A) 0.2 k/uL (0-0.7); Eosinophils % (A) 2 %; HGB 13.4 gm/dL (11.4-16.0); Lymphocytes # (A) 1.5 k/uL (1.0-4.8); Lymphocytes % (A) 11 %; MCH 30.2 pg (25.0-35.0); MCHC 33.4 g/dL (31.0-37.0); MCV 90.4 fL (80.0-100.0); Mean Platelet Volume 7.8; Monocytes # (A) 0.4 k/uL (0-1.0); Monocytes % (A) 3 %; Neutrophils # (A) 10.8 k/uL (1.3-7.7); Neutrophils % (A) 83 %; Platelet Count 230 k/uL (150-450); RBC 4.43 m/uL (3.80-5.40); RDW 12.4 % (11.5-15.5)
[2018-04-08 11:00] LABS: D-Dimer 0.4 mg/L FEU (<0.60); Prothrombin Time 9.6 sec (9.0-12.0)
[2018-04-08 11:02] LABS: ALT 25 U/L (9-52); AST 21 U/L (14-36); Albumin 4.1 g/dL (3.5-5.0); Alkaline Phosphatase 55 U/L (38-126); Anion Gap 8 mmol/L; Blood Urea Nitrogen 10 mg/dL (7-17); Calcium 9.2 mg/dL (8.4-10.2); Carbon Dioxide 25 mmol/L (22-30); Chloride 109 mmol/L (98-107); Glucose 97 mg/dL (74-99); Magnesium 1.9 mg/dL (1.6-2.3); Potassium 4.5 mmol/L (3.5-5.1); Sodium 142 mmol/L (137-145); Total Bilirubin 0.4 mg/dL (0.2-1.3); Total Protein 7.2 g/dL (6.3-8.2)
--- NOTE | 2018-04-08 11:11 | XR ---
EXAMINATION TYPE: XR chest 2V DATE OF EXAM: 04/08/2018 COMPARISON: December 20, 2017 HISTORY: History of situs inversus with cough TECHNIQUE: Frontal and lateral views of the chest are obtained. FINDINGS: There is no focal air space opacity. No evidence for pneumothorax. No pleural effusion. The cardiac silhouette size is within normal limits. Features of situs inversus again noted The osseous structures are grossly intact. IMPRESSION: 1. No acute cardiopulmonary process.
[2018-04-08 11:19] LABS: Creatine Kinase 97 U/L (30-135)
[2018-04-08 11:32] LABS: Creatine Kinase MB 0.5 ng/mL (0.0-2.4); Troponin I <0.012 ng/mL (0.000-0.034)
[2018-04-08 11:48] VITALS: BP 106/65
[2018-04-08 12:22] VITALS: PULSE 87; RESP 18
== END 2018-04-08 12:21 | disposition home or self-care (01) ==
LOC: EC 09:43
DX: R07.89 Other chest pain (principal); R06.00 Dyspnea, unspecified; R11.0 Nausea; R61 Generalized hyperhidrosis; Q24.0 Dextrocardia; Z87.891 Personal history of nicotine dependence
CPT/HCPCS: 36415; 93005; 85379; 80053; 82550; 82553; 83735; 84484; 85025; 85610; 85730; 71046; 99285; 96374; 96361 ×2; J2405

== ENCOUNTER 2018-06-17 09:31 | Emergency (ER) | payer OTHER ==
[2018-06-17] MEDS ORDERED: PANTOPRAZOLE 40 MG/10 ML VIAL IVP STA (09:50)
[2018-06-17] MEDS ORDERED: SODIUM CHLORIDE 0.9% 2,000 ML IV STA (09:50)
[2018-06-17] MEDS ORDERED: ONDANSETRON 4 MG/2 ML VIAL IVP STA (09:50)
--- NOTE | 2018-06-17 10:11 | ED ---
Nausea/Vomiting/Diarrhea HPI - General Chief complaint: Nausea/Vomiting/Diarrhea Stated complaint: Vomiting Time Seen by Provider: 06/17/18 09:49 Source: patient, RN notes reviewed Mode of arrival: ambulatory Limitations: no limitations - History of Present Illness Initial comments: 22-year-old female presents emergency Department with chief complaint of nausea vomiting diarrhea. Patient states started at 4:30 this morning abruptly. She states she's vomiting bile at this time denies any hematemesis copremesis. Patient denies any dysuria, hematuria or any chance . She states her last mental cycle was yesterday. Patient states she has diffuse abdominal pain. Denies any sick contacts with some her symptoms. Patient has normal drug ALLERGIES. Patient states that her diarrhea is very loose and watery no melena or hematochezia. - Related Data Previous Rx's Medication Instructions Recorded Ondansetron Odt [Zofran Odt] 4 mg PO Q8HR PRN #10 tab 06/17/18 Allergies Allergy/AdvReac Type Severity Reaction Status Date / Time No Known Allergies Allergy Verified 06/17/18 10:25 Review of Systems ROS Statement: Those systems with pertinent positive or pertinent negative responses have been documented in the HPI. ROS Other: All systems not noted in ROS Statement are negative. 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, situs inbersus History of Any Multi-Drug Resistant Organisms: MRSA Date of last positivie culture/infection: 2012 MDRO Source:: LEFT GROIN Past Surgical History: Appendectomy Past Psychological History: No Psychological Hx Reported Smoking Status: Former smoker Past Alcohol Use History: Occasional Past Drug Use History: None Reported - Past Family History Mother Family Medical History: Cancer Father Family Medical History: Hypertension General Exam Limitations: no limitations General appearance: alert, in no apparent distress Head exam: Present: atraumatic, normocephalic, normal inspection Neck exam: Present: normal inspection. Absent: tenderness, meningismus, lymphadenopathy Respiratory exam: Present: normal lung sounds bilaterally. Absent: respiratory distress, wheezes, rales, rhonchi, stridor Cardiovascular Exam: Present: regular rate, normal rhythm, normal heart sounds. Absent: systolic murmur, diastolic murmur, rubs, gallop, clicks GI/Abdominal exam: Present: soft, tenderness (Mild diffuse), normal bowel sounds. Absent: distended, guarding, rebound, rigid Back exam: Absent: CVA tenderness (R), CVA tenderness (L) Skin exam: Present: warm, dry, intact, normal color. Absent: rash Course Vital Signs 06/17/18 09:36 Temperature 97 F L Pulse Rate 100 Respiratory 22 Rate Blood Pressure 131/70 O2 Sat by Pulse 100 Oximetry Medical Decision Making - Medical Decision Making 22-year-old female presented for nausea vomiting. Patient was hydrated, given antiemetics, Protonix. Patient did have lab work and urinalysis. Patient is 100% better after IV fluids and antiemetics. Patient does have noted hematuria though she is on her menstrual cycle. Patient has no pain after reevaluation of nausea meds. Patient will be discharged with Zofran return parameters were discussed. - Lab Data Result diagrams: 06/17/18 09:55 06/17/18 09:55 Lab Results 06/17/18 06/17/18 06/17/18 Range/Units 09:55 09:55 10:00 WBC 7.7 (3.8-10.6) k/uL RBC 4.62 (3.80-5.40) m/uL Hgb 13.2 (11.4-16.0) gm/dL Hct 41.2 (34.0-46.0) % MCV 89.1 (80.0-100.0) fL MCH 28.6 (25.0-35.0) pg MCHC 32.1 (31.0-37.0) g/dL RDW 12.8 (11.5-15.5) % Plt Count 233 (150-450) k/uL Neutrophils % 83 % Lymphocytes % 14 % Monocytes % 2 % Eosinophils % 1 % Basophils % 0 % Neutrophils # 6.4 (1.3-7.7) k/uL Lymphocytes # 1.1 (1.0-4.8) k/uL Monocytes # 0.1 (0-1.0) k/uL Eosinophils # 0.1 (0-0.7) k/uL Basophils # 0.0 (0-0.2) k/uL Sodium 144 (137-145) mmol/L Potassium 4.3 (3.5-5.1) mmol/L Chloride 110 H (98-107) mmol/L Carbon Dioxide 22 (22-30) mmol/L Anion Gap 12 mmol/L BUN 17 (7-17) mg/dL Creatinine 0.68 (0.52-1.04) mg/dL Est GFR (CKD-EPI)AfAm >90 (>60 ml/min/1.73 sqM) Est GFR (CKD-EPI)NonAf >90 (>60 ml/min/1.73 sqM) Glucose 115 H (74-99) mg/dL Calcium 9.6 (8.4-10.2) mg/dL Total Bilirubin 0.5 (0.2-1.3) mg/dL AST 35 (14-36) U/L ALT 37 (9-52) U/L Alkaline Phosphatase 52 (38-126) U/L Total Protein 7.6 (6.3-8.2) g/dL Albumin 4.5 (3.5-5.0) g/dL Amylase 50 (30-110) U/L Lipase 73 (23-300) U/L Urine Color Urine Appearance (Clear) Urine pH (5.0-8.0) Ur Specific [place] (1.001-1.035) Urine Protein (Negative) Urine Glucose (UA) (Negative) Urine Ketones (Negative) Urine Blood (Negative) Urine Nitrite (Negative) Urine Bilirubin (Negative) Urine Urobilinogen (<2.0) mg/dL Ur Leukocyte Esterase (Negative) Urine RBC (0-5) /hpf Urine WBC (0-5) /hpf Ur Squamous Epith Cells (0-4) /hpf Urine Bacteria (None) /hpf Urine Mucus (None) /hpf Urine HCG, Qual Not Detected (Not Detectd) 06/17/18 Range/Units 10:00 WBC (3.8-10.6) k/uL RBC (3.80-5.40) m/uL Hgb (11.4-16.0) gm/dL Hct (34.0-46.0) % MCV (80.0-100.0) fL MCH (25.0-35.0) pg MCHC (31.0-37.0) g/dL RDW (11.5-15.5) % Plt Count (150-450) k/uL Neutrophils % % Lymphocytes % % Monocytes % % Eosinophils % % Basophils % % Neutrophils # (1.3-7.7) k/uL Lymphocytes # (1.0-4.8) k/uL Monocytes # (0-1.0) k/uL Eosinophils # (0-0.7) k/uL Basophils # (0-0.2) k/uL Sodium (137-145) mmol/L Potassium (3.5-5.1) mmol/L Chloride (98-107) mmol/L Carbon Dioxide (22-30) mmol/L Anion Gap mmol/L BUN (7-17) mg/dL Creatinine (0.52-1.04) mg/dL Est GFR (CKD-EPI)AfAm (>60 ml/min/1.73 sqM) Est GFR (CKD-EPI)NonAf (>60 ml/min/1.73 sqM) Glucose (74-99) mg/dL Calcium (8.4-10.2) mg/dL Total Bilirubin (0.2-1.3) mg/dL AST (14-36) U/L ALT (9-52) U/L Alkaline Phosphatase (38-126) U/L Total Protein (6.3-8.2) g/dL Albumin (3.5-5.0) g/dL Amylase (30-110) U/L Lipase (23-300) U/L Urine Color Light Red Urine Appearance Cloudy H (Clear) Urine pH 6.5 (5.0-8.0) Ur Specific [place] 1.023 (1.001-1.035) Urine Protein 1+ H (Negative) Urine Glucose (UA) Negative (Negative) Urine Ketones Negative (Negative) Urine Blood Large H (Negative) Urine Nitrite Negative (Negative) Urine Bilirubin Negative (Negative) Urine Urobilinogen <2.0 (<2.0) mg/dL Ur Leukocyte Esterase Trace H (Negative) Urine RBC >182 H (0-5) /hpf Urine WBC 11 H (0-5) /hpf Ur Squamous Epith Cells 9 H (0-4) /hpf Urine Bacteria Rare H (None) /hpf Urine Mucus Many H (None) /hpf Urine HCG, Qual (Not Detectd) Disposition Clinical Impression: Gastroenteritis Disposition: HOME SELF-CARE Condition: Stable Instructions (If sedation given, give patient instructions): Gastroenteritis ( ED) Additional Instructions: Please return to the Emergency Department if symptoms worsen or any other concerns. Prescriptions: Ondansetron Odt [Zofran Odt] 4 mg PO Q8HR PRN #10 tab PRN Reason: Nausea Is patient prescribed a controlled substance at d/c from ED?: No Referrals: Fermín Sanabria MD [Primary Care Provider] - 1-2 days Time of Disposition: 11:30
[2018-06-17 10:28] LABS: Appearance,Urine Cloudy (Clear); Bacteria,Urine Rare /hpf; Bilirubin,Urine Negative (Negative); Blood,Urine Large (Negative); Color,Urine Light Red; Glucose,Urine (UA) Negative (Negative); Ketones,Urine Negative (Negative); Leukocyte Esterase,Urine Trace (Negative); Mucus,Urine Many /hpf; Nitrite,Urine Negative (Negative); PH, Urine 6.5 (5.0-8.0); Protein,Urine 1+ (Negative); RBC,Urine >182 /hpf (0-5); Specific Gravity,Urine 1.023 (1.001-1.035); Squamous Epithelial Cell,Urine 9 /hpf (0-4); Urobilinogen,Urine <2.0 mg/dL (<2.0); WBC,Urine 11 /hpf (0-5)
[2018-06-17 10:33] LABS: Basophils % (A) 0 %; Eosinophils # (A) 0.1 k/uL (0-0.7); Eosinophils % (A) 1 %; HCT 41.2 % (34.0-46.0); HGB 13.2 gm/dL (11.4-16.0); Lymphocytes # (A) 1.1 k/uL (1.0-4.8); Lymphocytes % (A) 14 %; MCH 28.6 pg (25.0-35.0); MCHC 32.1 g/dL (31.0-37.0); MCV 89.1 fL (80.0-100.0); Mean Platelet Volume 7.2; Monocytes # (A) 0.1 k/uL (0-1.0); Monocytes % (A) 2 %; Neutrophils # (A) 6.4 k/uL (1.3-7.7); Neutrophils % (A) 83 %; Platelet Count 233 k/uL (150-450); RBC 4.62 m/uL (3.80-5.40); RDW 12.8 % (11.5-15.5); WBC 7.7 k/uL (3.8-10.6)
[2018-06-17 10:46] LABS: ALT 37 U/L (9-52); AST 35 U/L (14-36); Albumin 4.5 g/dL (3.5-5.0); Alkaline Phosphatase 52 U/L (38-126); Amylase 50 U/L (30-110); Anion Gap 12 mmol/L; Blood Urea Nitrogen 17 mg/dL (7-17); Calcium 9.6 mg/dL (8.4-10.2); Carbon Dioxide 22 mmol/L (22-30); Chloride 110 mmol/L (98-107); Glucose 115 mg/dL (74-99); Lipase 73 U/L (23-300); Potassium 4.3 mmol/L (3.5-5.1); Sodium 144 mmol/L (137-145); Total Bilirubin 0.5 mg/dL (0.2-1.3); Total Protein 7.6 g/dL (6.3-8.2)
[2018-06-17 11:53] VITALS: BP 111/68; PULSE 78; RESP 18; TEMP 98
== END 2018-06-17 11:50 | disposition home or self-care (01) ==
LOC: EC 09:31
DX: K52.9 Noninfective gastroenteritis and colitis, unspecified (principal); R31.9 Hematuria, unspecified; Z87.891 Personal history of nicotine dependence; Z86.14 Personal history of Methicillin resistant Staphylococcus aureus infection; Z90.49 Acquired absence of other specified parts of digestive tract
CPT/HCPCS: 36415; 80053; 82150; 83690; 85025; 81001; 81025; 99284; 96374; 96375; 96361; J2405; C9113

== ENCOUNTER 2018-07-20 22:56 | Emergency (ER) | payer OTHER ==
[2018-07-20 23:02] VITALS: BP 114/68; PULSE 89; RESP 20; TEMP 98.2
[2018-07-20] MEDS ORDERED: guaiFENesin-DM 600/30MG 1 EACH TAB.ER.12H PO STA (23:44)
[2018-07-20] MEDS ORDERED: DEXAMETHASONE SOD PHOSPHATE 10 MG/ML 1 ML VIAL IM STA (23:44)
--- NOTE | 2018-07-21 00:16 | XR ---
ADDENDUM - Added by Vik Jimenez M.D. on 07/21/2018 12:34 AM (-05:00) Comparison: 04/08/18 Note, left marked was placed incorrectly initially and has been corrected on series 3, image 1. Per this image, this patient has situs inversus, as demonstrated on comparison study from 04/08/18 EXAM: XR Chest, 2 Views CLINICAL HISTORY: Pain TECHNIQUE: Frontal and lateral views of the chest. COMPARISON: 04/08/19 FINDINGS: Lungs: Unremarkable. No consolidation. Pleural space: Unremarkable. No pneumothorax. Heart: Unremarkable. No cardiomegaly. Mediastinum: Unremarkable. Bones/joints: Unremarkable. IMPRESSION: No acute findings or substantial change
--- NOTE | 2018-07-21 01:05 | ED ---
URI HPI - General Chief Complaint: Upper Respiratory Infection Stated Complaint: Strep throat Time Seen by Provider: 07/20/18 23:17 Source: patient Mode of arrival: ambulatory Limitations: no limitations - History of Present Illness Initial Comments: 22-year-old female patient presents to the emergency department today for evaluation of cough, nasal congestion, and sore throat. Patient states she has had these symptoms for the past 2 days. States that she did have a fever yesterday of 100.3F. She denies any shortness of breath, sputum production, or hemoptysis. Denies any abdominal pain, nausea, vomiting with this. States she did not receive influenza vaccination. States she has not been taking any medication for her symptoms. Patient denies any recent rash, chest pain, abdominal pain, nausea, vomiting, diarrhea, constipation, back pain, numbness, tingling, dizziness, weakness, hematuria, dysuria, urinary urgency, urinary frequency, headache, visual changes, or any other complaints. - Related Data Previous Rx's Medication Instructions Recorded Albuterol Sulfate [Proair Hfa] 1 - 2 puff INHALATION Q6HR PRN #1 07/21/18 inhaler guaiFENesin-DM 600/30MG [Mucinex 1 each PO Q12HR #10 tab.er.12h 07/21/18 Dm] Allergies Allergy/AdvReac Type Severity Reaction Status Date / Time No Known Allergies Allergy Verified 06/17/18 10:25 Review of Systems ROS Statement: Those systems with pertinent positive or pertinent negative responses have been documented in the HPI. ROS Other: All systems not noted in ROS Statement are negative. 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, situs inbersus History of Any Multi-Drug Resistant Organisms: MRSA Date of last positivie culture/infection: 2012 MDRO Source:: LEFT GROIN Past Surgical History: Appendectomy Past Psychological History: No Psychological Hx Reported Smoking Status: Former smoker Past Alcohol Use History: Occasional Past Drug Use History: None Reported - Past Family History Mother Family Medical History: Cancer Father Family Medical History: Hypertension General Exam Limitations: no limitations General appearance: alert, in no apparent distress, other (This is a well- developed, well-nourished adult female patient in no acute distress. Vital signs upon presentation are temperature 98.2F, pulse 89, respirations 20, blood pressure 114/68, pulse ox 98% on room air.) Eye exam: Present: normal appearance, PERRL, EOMI. Absent: scleral icterus, conjunctival injection, periorbital swelling ENT exam: Present: mucous membranes moist, TM's normal bilaterally. Absent: normal exam, normal oropharynx (Pharyngeal erythema. No tonsillar hypertrophy or exudate noted.) Neck exam: Present: normal inspection. Absent: tenderness, meningismus, lymphadenopathy Respiratory exam: Present: normal lung sounds bilaterally. Absent: respiratory distress, wheezes, rales, rhonchi, stridor Cardiovascular Exam: Present: regular rate, normal rhythm, normal heart sounds. Absent: systolic murmur, diastolic murmur, rubs, gallop, clicks GI/Abdominal exam: Present: soft, normal bowel sounds. Absent: distended, tenderness, guarding, rebound, rigid Neurological exam: Present: alert, oriented X3, CN II-XII intact Psychiatric exam: Present: normal affect, normal mood Skin exam: Present: warm, dry, intact, normal color. Absent: rash Course Vital Signs 07/20/18 22:59 Temperature 98.2 F Pulse Rate 89 Respiratory 20 Rate Blood Pressure 114/68 O2 Sat by Pulse 98 Oximetry Medical Decision Making - Medical Decision Making 22-year-old female patient presented to the emergency department today for evaluation of cough, nasal congestion, and sore throat. Physical examination did reveal pharyngeal erythema. Lungs are clear to auscultation with good air movement. No lymphadenopathy. Chest x-ray showed no acute cardiopulmonary process patient is negative for strep and influenza testing. Symptoms are consistent with viral upper respiratory infection. She will be given a prescription for Mucinex DM and educated regarding supportive care. She is instructed to alternate Tylenol Motrin for any further pain or fevers. She is instructed to follow-up with the primary care physician for recheck in 1-2 days. Return parameters were discussed in detail. She verbalizes understanding and agrees with this plan. - Lab Data Lab Results 07/20/18 07/20/18 Range/Units 23:55 23:55 Influenza Type A RNA Not Detected (Not Detectd) Influenza Type B (PCR) Not Detected (Not Detectd) Group A Strep Rapid Negative (Negative) - Radiology Data Radiology results: report reviewed, image reviewed Two-view x-ray of the chest is obtained. Report was reviewed in its entirety. Impression by Dr. Jimenez shows no acute findings or substantial change. Disposition Clinical Impression: Viral upper respiratory infection Disposition: HOME SELF-CARE Condition: Good Instructions (If sedation given, give patient instructions): Upper Respiratory Infection (ED) Additional Instructions: Alternate Tylenol Motrin for pain control. Increase fluids. Take medications as directed. Follow-up with your primary care physician for recheck in 1-2 days. Return to the emergency department immediately for any new, worsening, or concerning symptoms. Prescriptions: guaiFENesin-DM 600/30MG [Mucinex Dm] 1 each PO Q12HR #10 tab.er.12h Albuterol Sulfate [Proair Hfa] 1 - 2 puff INHALATION Q6HR PRN #1 inhaler PRN Reason: Shortness Of Breath Is patient prescribed a controlled substance at d/c from ED?: No Referrals: Fermín Sanabria MD [Primary Care Provider] - 1-2 days Time of Disposition: 01:05
== END 2018-07-21 01:18 | disposition home or self-care (01) ==
LOC: EC 22:56
DX: J06.9 Acute upper respiratory infection, unspecified (principal); Z87.891 Personal history of nicotine dependence
CPT/HCPCS: 87081; 87430; 87502; 71046; 99283; 96372; J1100

== ENCOUNTER 2018-12-20 22:28 | Emergency (ER) | payer OTHER ==
[2018-12-20 22:41] VITALS: RESP 18
[2018-12-20] MEDS ORDERED: SODIUM CHLORIDE 0.9% 1,000 ML IV STA (22:57)
--- NOTE | 2018-12-20 22:57 | ED ---
Abdominal Pain HPI - General Chief Complaint: Abdominal Pain Stated Complaint: abdominal pain Time Seen by Provider: 12/20/18 22:55 Source: patient Mode of arrival: ambulatory Limitations: no limitations - History of Present Illness Initial Comments: Malathi is a 23yo female who presents to the ED today for eval of diarrhea for 1 week duration. Patient states that for the past week she has been experiencing around 6 loose stools a day. Patient states that today at work she became lightheaded and had cramping abdominal pain prompted her to come to the emergency department for evaluation. Patient was concerned she may be dehydrated. Patient also notes that she started her menses yesterday. She has no concern for . She denies any foreign travel, any recent antibiotic use. Any outdoor activities in which he strains unfiltered water. - Related Data Previous Rx's Medication Instructions Recorded Dicyclomine [Bentyl] 10 mg PO QID #20 capsule 12/21/18 Allergies Allergy/AdvReac Type Severity Reaction Status Date / Time No Known Allergies Allergy Verified 12/20/18 22:48 Review of Systems ROS Statement: Those systems with pertinent positive or pertinent negative responses have been documented in the HPI. ROS Other: All systems not noted in ROS Statement are negative. 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, situs inbersus History of Any Multi-Drug Resistant Organisms: MRSA Date of last positivie culture/infection: 2012 MDRO Source:: LEFT GROIN Past Surgical History: Appendectomy Past Psychological History: No Psychological Hx Reported Smoking Status: Former smoker Past Alcohol Use History: Occasional Past Drug Use History: None Reported - Past Family History Mother Family Medical History: Cancer Father Family Medical History: Hypertension General Exam - General Exam Comments Initial Comments: Physical Exam GENERAL: Patient is well-developed and well-nourished. Patient is nontoxic and well- hydrated and is in no distress. HENT: Normocephalic, Atraumatic. EYES: PERRL, EOMI PULMONARY: Unlabored respirations. No audible rales rhonchi or wheezing was noted. CARDIOVASCULAR: There is a regular rate and rhythm without any murmurs gallops or rubs. ABDOMEN: Soft and nontender with normal bowel sounds. No tenderness to palpation SKIN: Skin is clear with no lesions or rashes and otherwise unremarkable. : Deferred NEUROLOGIC: Patient is alert and oriented x3. Moving all extremities spontaneously MUSCULOSKELETAL: Normal extremities with adequate strength and full range of motion. No lower extremity swelling or edema. No calf tenderness. PSYCHIATRIC: Normal psychiatric evaluation Limitations: no limitations Course Vital Signs 12/20/18 12/20/18 12/21/18 22:39 23:40 01:27 Temperature 98 F 98.4 F Pulse Rate 79 71 Respiratory 18 18 18 Rate Blood Pressure 108/60 107/63 101/65 O2 Sat by Pulse 98 99 Oximetry Medical Decision Making - Medical Decision Making The patient was seen and evaluated, history is obtained from patient Physical exam is unremarkable patient's very well-appearing does not appear to be dehydrated has a soft nontender abdomen Labs and IV fluids were ordered Labs resulted with no significant abnormalities Results were discussed with patient who does report feeling somewhat better after IV fluids and Bentyl Patient was discharged home with oral Bentyl, patient was encouraged to keep a food diary to see if she can identify any foods that seem to exacerbate her symp toms, follow up with primary care physician for any persistent symptoms. All questions pertaining care were answered return parameters were discussed the patient was discharged home in stable condition - Lab Data Result diagrams: 12/20/18 23:15 12/20/18 23:15 Lab Results 12/20/18 12/20/18 12/20/18 Range/Units 23:15 23:15 23:15 WBC 10.6 (3.8-10.6) k/uL RBC 4.89 (3.80-5.40) m/uL Hgb 14.4 (11.4-16.0) gm/dL Hct 44.0 (34.0-46.0) % MCV 89.8 (80.0-100.0) fL MCH 29.5 (25.0-35.0) pg MCHC 32.8 (31.0-37.0) g/dL RDW 12.6 (11.5-15.5) % Plt Count 261 (150-450) k/uL Neutrophils % 55 % Lymphocytes % 39 % Monocytes % 2 % Eosinophils % 2 % Basophils % 1 % Neutrophils # 5.9 (1.3-7.7) k/uL Lymphocytes # 4.1 (1.0-4.8) k/uL Monocytes # 0.3 (0-1.0) k/uL Eosinophils # 0.2 (0-0.7) k/uL Basophils # 0.1 (0-0.2) k/uL Sodium 142 (137-145) mmol/L Potassium 4.0 (3.5-5.1) mmol/L Chloride 105 (98-107) mmol/L Carbon Dioxide 28 (22-30) mmol/L Anion Gap 9 mmol/L BUN 14 (7-17) mg/dL Creatinine 0.78 (0.52-1.04) mg/dL Est GFR (CKD-EPI)AfAm >90 (>60 ml/min/1.73 sqM) Est GFR (CKD-EPI)NonAf >90 (>60 ml/min/1.73 sqM) Glucose 104 H (74-99) mg/dL Calcium 10.1 (8.4-10.2) mg/dL Total Bilirubin 0.3 (0.2-1.3) mg/dL AST 24 (14-36) U/L ALT 15 (9-52) U/L Alkaline Phosphatase 63 (38-126) U/L Total Protein 8.1 (6.3-8.2) g/dL Albumin 4.7 (3.5-5.0) g/dL Amylase 55 (30-110) U/L Lipase 66 (23-300) U/L Urine Color Yellow Urine Appearance Clear (Clear) Urine pH 6.0 (5.0-8.0) Ur Specific [place] 1.033 (1.001-1.035) Urine Protein Negative (Negative) Urine Glucose (UA) Negative (Negative) Urine Ketones Negative (Negative) Urine Blood Trace H (Negative) Urine Nitrite Negative (Negative) Urine Bilirubin Negative (Negative) Urine Urobilinogen 2.0 (<2.0) mg/dL Ur Leukocyte Esterase Negative (Negative) Urine RBC 3 (0-5) /hpf Urine WBC 1 (0-5) /hpf Ur Squamous Epith Cells 4 (0-4) /hpf Urine Mucus Few H (None) /hpf Urine HCG, Qual (Not Detectd) 12/20/18 Range/Units 23:15 WBC (3.8-10.6) k/uL RBC (3.80-5.40) m/uL Hgb (11.4-16.0) gm/dL Hct (34.0-46.0) % MCV (80.0-100.0) fL MCH (25.0-35.0) pg MCHC (31.0-37.0) g/dL RDW (11.5-15.5) % Plt Count (150-450) k/uL Neutrophils % % Lymphocytes % % Monocytes % % Eosinophils % % Basophils % % Neutrophils # (1.3-7.7) k/uL Lymphocytes # (1.0-4.8) k/uL Monocytes # (0-1.0) k/uL Eosinophils # (0-0.7) k/uL Basophils # (0-0.2) k/uL Sodium (137-145) mmol/L Potassium (3.5-5.1) mmol/L Chloride (98-107) mmol/L Carbon Dioxide (22-30) mmol/L Anion Gap mmol/L BUN (7-17) mg/dL Creatinine (0.52-1.04) mg/dL Est GFR (CKD-EPI)AfAm (>60 ml/min/1.73 sqM) Est GFR (CKD-EPI)NonAf (>60 ml/min/1.73 sqM) Glucose (74-99) mg/dL Calcium (8.4-10.2) mg/dL Total Bilirubin (0.2-1.3) mg/dL AST (14-36) U/L ALT (9-52) U/L Alkaline Phosphatase (38-126) U/L Total Protein (6.3-8.2) g/dL Albumin (3.5-5.0) g/dL Amylase (30-110) U/L Lipase (23-300) U/L Urine Color Urine Appearance (Clear) Urine pH (5.0-8.0) Ur Specific [place] (1.001-1.035) Urine Protein (Negative) Urine Glucose (UA) (Negative) Urine Ketones (Negative) Urine Blood (Negative) Urine Nitrite (Negative) Urine Bilirubin (Negative) Urine Urobilinogen (<2.0) mg/dL Ur Leukocyte Esterase (Negative) Urine RBC (0-5) /hpf Urine WBC (0-5) /hpf Ur Squamous Epith Cells (0-4) /hpf Urine Mucus (None) /hpf Urine HCG, Qual Not Detected (Not Detectd) Disposition Clinical Impression: Diarrhea Disposition: HOME SELF-CARE Condition: Stable Instructions (If sedation given, give patient instructions): Gastroenteritis (DC), Acute Diarrhea (ED) Prescriptions: Dicyclomine [Bentyl] 10 mg PO QID #20 capsule Is patient prescribed a controlled substance at d/c from ED?: No Referrals: Fermín Sanabria MD [Primary Care Provider] - 1-2 days
[2018-12-20] MEDS ORDERED: DICYCLOMINE 20 MG TAB PO STA (23:29)
[2018-12-20 23:30] LABS: Basophils # (A) 0.1 k/uL (0-0.2); Basophils % (A) 1 %; Eosinophils # (A) 0.2 k/uL (0-0.7); Eosinophils % (A) 2 %; HGB 14.4 gm/dL (11.4-16.0); Lymphocytes # (A) 4.1 k/uL (1.0-4.8); Lymphocytes % (A) 39 %; MCH 29.5 pg (25.0-35.0); MCHC 32.8 g/dL (31.0-37.0); MCV 89.8 fL (80.0-100.0); Mean Platelet Volume 7.6; Monocytes # (A) 0.3 k/uL (0-1.0); Monocytes % (A) 2 %; Neutrophils # (A) 5.9 k/uL (1.3-7.7); Neutrophils % (A) 55 %; Platelet Count 261 k/uL (150-450); RBC 4.89 m/uL (3.80-5.40); RDW 12.6 % (11.5-15.5); WBC 10.6 k/uL (3.8-10.6)
[2018-12-20 23:36] LABS: Appearance,Urine Clear (Clear); Bilirubin,Urine Negative (Negative); Blood,Urine Trace (Negative); Color,Urine Yellow; Glucose,Urine (UA) Negative (Negative); Ketones,Urine Negative (Negative); Leukocyte Esterase,Urine Negative (Negative); Mucus,Urine Few /hpf; Nitrite,Urine Negative (Negative); Protein,Urine Negative (Negative); RBC,Urine 3 /hpf (0-5); Specific Gravity,Urine 1.033 (1.001-1.035); Squamous Epithelial Cell,Urine 4 /hpf (0-4); WBC,Urine 1 /hpf (0-5)
[2018-12-20 23:40] LABS: ALT 15 U/L (9-52); AST 24 U/L (14-36); African American GFR (CKD) >90 (>60 ml/min/1.73 sqM); Albumin 4.7 g/dL (3.5-5.0); Alkaline Phosphatase 63 U/L (38-126); Amylase 55 U/L (30-110); Anion Gap 9 mmol/L; Blood Urea Nitrogen 14 mg/dL (7-17); Calcium 10.1 mg/dL (8.4-10.2); Carbon Dioxide 28 mmol/L (22-30); Chloride 105 mmol/L (98-107); Glucose 104 mg/dL (74-99); Sodium 142 mmol/L (137-145); Total Bilirubin 0.3 mg/dL (0.2-1.3); Total Protein 8.1 g/dL (6.3-8.2)
[2018-12-21 01:30] VITALS: BP 101/65; PULSE 71; TEMP 98.4
== END 2018-12-21 01:33 | disposition home or self-care (01) ==
LOC: EC 22:28
DX: R19.7 Diarrhea, unspecified (principal); R10.9 Unspecified abdominal pain; R42 Dizziness and giddiness; Z87.891 Personal history of nicotine dependence
CPT/HCPCS: 36415; 80053; 81001; 81025; 82150; 83690; 85025; 96360; 99284

== ENCOUNTER 2019-06-20 15:37 | Emergency (ER) | payer BC, OTHER ==
[2019-06-20 15:47] VITALS: BP 123/76; PULSE 85; TEMP 98.1
[2019-06-20] MEDS ORDERED: MECLIZINE 12.5 MG TAB PO STA (16:00)
[2019-06-20] MEDS ORDERED: ONDANSETRON ODT 4 MG TAB PO STA (16:00)
--- NOTE | 2019-06-20 16:03 | ED ---
ENT HPI - General Chief complaint: ENT Stated complaint: Ear Pain Time Seen by Provider: 06/20/19 15:48 Source: patient, RN notes reviewed Mode of arrival: ambulatory Limitations: no limitations - History of Present Illness Initial comments: This a 23-year-old female presents emergency Department with chief complaint of right ear pain, congestion. Patient states that this pain started over the last couple days but states that she's been very dizzy today with that it's only dizziness with movement no chest pain or shortness of breath. She also limits that she has pain from a wisdom tooth is coming in on her right side. Patient has not taken any Tylenol or Motrin today denies any known drug ALLERGIES no sick contacts no palpitations. - Related Data Previous Rx's Medication Instructions Recorded Dicyclomine [Bentyl] 10 mg PO QID #20 capsule 12/21/18 Amoxicillin 875 mg PO Q12HR #20 tablet 06/20/19 Meclizine [Antivert] 25 mg PO TID PRN #15 tab 06/20/19 Ondansetron Odt [Zofran Odt] 4 mg PO Q8HR PRN #10 tab 06/20/19 Allergies Allergy/AdvReac Type Severity Reaction Status Date / Time No Known Allergies Allergy Verified 06/20/19 15:43 Review of Systems ROS Statement: Those systems with pertinent positive or pertinent negative responses have been documented in the HPI. ROS Other: All systems not noted in ROS Statement are negative. 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, situs inbersus History of Any Multi-Drug Resistant Organisms: MRSA Date of last positivie culture/infection: 2012 MDRO Source:: LEFT GROIN Past Surgical History: Appendectomy Past Psychological History: No Psychological Hx Reported Smoking Status: Former smoker Past Alcohol Use History: Occasional Past Drug Use History: Marijuana - Past Family History Mother Family Medical History: Cancer Father Family Medical History: Hypertension General Exam Limitations: no limitations General appearance: alert, in no apparent distress Head exam: Present: atraumatic, normocephalic, normal inspection Eye exam: Present: normal appearance, PERRL, EOMI. Absent: scleral icterus, conjunctival injection, periorbital swelling ENT exam: Present: mucous membranes moist, normal external ear exam. Absent: normal exam, normal oropharynx (Impacted wisdom tooth noted), TM's normal bilaterally (Fluid bilaterally, mild erythema) Neck exam: Present: normal inspection, full ROM. Absent: tenderness, meningismus, lymphadenopathy Respiratory exam: Present: normal lung sounds bilaterally. Absent: respiratory distress, wheezes, rales, rhonchi, stridor Cardiovascular Exam: Present: regular rate, normal rhythm, normal heart sounds. Absent: systolic murmur, diastolic murmur, rubs, gallop, clicks Course Vital Signs 06/20/19 15:44 Temperature 98.1 F Pulse Rate 85 Respiratory 18 Rate Blood Pressure 123/76 O2 Sat by Pulse 97 Oximetry Medical Decision Making - Medical Decision Making Patient has a stationary dysfunction with mild otitis media and vertigo-type symptoms. Patient will be discharged on Antivert, antiemetics and antibiotics. Return parameters discussed. Disposition Clinical Impression: Otitis media, Vertigo, Impacted molar Disposition: HOME SELF-CARE Condition: Stable Instructions (If sedation given, give patient instructions): Earache (ED) Additional Instructions: Please return to the Emergency Department if symptoms worsen or any other concerns. Prescriptions: Amoxicillin 875 mg PO Q12HR #20 tablet Meclizine [Antivert] 25 mg PO TID PRN #15 tab PRN Reason: Vertigo Ondansetron Odt [Zofran Odt] 4 mg PO Q8HR PRN #10 tab PRN Reason: Nausea Is patient prescribed a controlled substance at d/c from ED?: No Referrals: Fermín Sanabria MD [Primary Care Provider] - 1-2 days Time of Disposition: 16:03
[2019-06-20 16:14] VITALS: RESP 20
== END 2019-06-20 16:14 | disposition home or self-care (01) ==
LOC: EC 15:37
DX: H66.91 Otitis media, unspecified, right ear (principal); R09.89 Other specified symptoms and signs involving the circulatory and respiratory systems; K01.1 Impacted teeth; Z86.14 Personal history of Methicillin resistant Staphylococcus aureus infection; Z87.891 Personal history of nicotine dependence
CPT/HCPCS: 99282

== ENCOUNTER 2019-07-04 07:23 | Emergency (ER) | payer BC, OTHER ==
[2019-07-04 07:29] VITALS: BP 128/75; PULSE 84; TEMP 98.7
[2019-07-04] MEDS ORDERED: ACET/COD 300 MG/30 MG STARTER PACK 6 TAB BTL PO STA (07:49)
--- NOTE | 2019-07-04 07:50 | ED ---
General Adult HPI - General Chief complaint: Dental/Oral Stated complaint: dental pain Time Seen by Provider: 07/04/19 07:30 Source: patient, RN notes reviewed Mode of arrival: ambulatory Limitations: no limitations - History of Present Illness Initial comments: 23-year-old female with a past medical history of dextrocardia, situs inversus presents to the emergency department for a chief complaint of dental pain. Patient states that she had all 4 wisdom teeth pulled 3 days ago. Patient states she is having significant pain in the left lower jaw. States she thinks she has a dry socket. Patient has been taking Motrin, last took Motrin last night. Patient denies taking anything for pain today. Patient states she did not call her dentist because she did not feel like driving back down to [place]. She denies fevers or chills. She denies any difficulty swallowing. Patient has no other complaints at this time including shortness of breath, chest pain, abdominal pain, nausea or vomiting, headache, or visual changes. - Related Data Previous Rx's Medication Instructions Recorded Dicyclomine [Bentyl] 10 mg PO QID #20 capsule 12/21/18 Amoxicillin 875 mg PO Q12HR #20 tablet 06/20/19 Meclizine [Antivert] 25 mg PO TID PRN #15 tab 06/20/19 Ondansetron Odt [Zofran Odt] 4 mg PO Q8HR PRN #10 tab 06/20/19 Allergies Allergy/AdvReac Type Severity Reaction Status Date / Time No Known Allergies Allergy Verified 07/04/19 07:29 Review of Systems ROS Statement: Those systems with pertinent positive or pertinent negative responses have been documented in the HPI. ROS Other: All systems not noted in ROS Statement are negative. 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, situs inbersus History of Any Multi-Drug Resistant Organisms: MRSA Date of last positivie culture/infection: 2012 MDRO Source:: LEFT GROIN Past Surgical History: Appendectomy Past Psychological History: No Psychological Hx Reported Smoking Status: Former smoker Past Alcohol Use History: Occasional Past Drug Use History: Marijuana - Past Family History Mother Family Medical History: Cancer Father Family Medical History: Hypertension General Exam Limitations: no limitations General appearance: alert, in no apparent distress Head exam: Present: atraumatic, normocephalic, normal inspection Eye exam: Present: normal appearance, PERRL, EOMI. Absent: scleral icterus, conjunctival injection, periorbital swelling ENT exam: Present: normal exam, mucous membranes moist, TM's normal bilaterally, normal external ear exam. Absent: normal oropharynx (Patient is noted to have had wisdom tooth removal. There is inflammation of the gum of the socket of the left lower molar. I do not see abscess.), other (No sublingual edema, no edema of the face or neck) Course Vital Signs 07/04/19 07:24 Temperature 98.7 F Pulse Rate 84 Respiratory 16 Rate Blood Pressure 128/75 O2 Sat by Pulse 100 Oximetry Medical Decision Making - Medical Decision Making Patient presents with pain to the left lower jaw after wisdom tooth removal 3-4 days ago. Patient did not feel like calling her dentist or driving back down to [place] so came to the emergency room. She did not take any pain medication today. She denies fevers or chills. Denies difficulty swallowing. Does have some jaw stiffness but is able to open mouth. On examination patient does have inflammation of the socket of the posterior left lower gumline however there is no abscess seen. This is likely postsurgical inflammatory process. At this point there is not a well-defined pocket I can pack with lidocaine gauze. I did offer patient a Mo[place] here in the emergency department that she does not want any at this time as she has not eaten yet today. I therefore offered her a Tylenol 3 starter pack. I directed her to follow up with her dentist/oral surgeon today. I did discuss that she cannot take Tylenol [address] She will otherwise continue Motrin. She will return here if he has any worsening symptoms or fevers. I discussed this case with attending Dr. Loving who agrees with this assessment and treatment plan. Disposition Clinical Impression: Pain, dental Disposition: HOME SELF-CARE Condition: Good Instructions (If sedation given, give patient instructions): Toothache (ED), Dry Socket (ED) Additional Instructions: Please continue your antibiotic as directed by your dentist/oral surgeon. Continue Motrin. Alternate this every 3 hours a Tylenol 3. [address] or operate machinery while taking Tylenol 3. Please call your dentist/oral surgeon for a follow up today. If you have any worsening symptoms such as increased swelling, fevers return to the emergency department. Is patient prescribed a controlled substance at d/c from ED?: No Referrals: Fermín Sanabria MD [Primary Care Provider] - 1-2 days Time of Disposition: 07:49
[2019-07-04] MEDS ORDERED: IBUPROFEN 600 MG TAB PO STA (07:51)
[2019-07-04 08:05] VITALS: RESP 20
== END 2019-07-04 08:05 | disposition home or self-care (01) ==
LOC: EC 07:23
DX: K08.89 Other specified disorders of teeth and supporting structures (principal); K05.11 Chronic gingivitis, non-plaque induced; Q24.0 Dextrocardia; Z87.891 Personal history of nicotine dependence; Z98.890 Other specified postprocedural states; Z86.14 Personal history of Methicillin resistant Staphylococcus aureus infection
CPT/HCPCS: 99282

== ENCOUNTER 2019-07-08 09:32 | Emergency (ER) | payer BC, OTHER ==
[2019-07-08 09:38] VITALS: TEMP 98.2
[2019-07-08] MEDS ORDERED: KETOROLAC 60 MG/2 ML VIAL IVP STA (09:56)
--- NOTE | 2019-07-08 10:06 | ED ---
General Adult HPI - General Chief complaint: Chest Pain Stated complaint: chest pain, sore throat Time Seen by Provider: 07/08/19 09:35 Source: patient, RN notes reviewed, old records reviewed Mode of arrival: ambulatory Limitations: no limitations - History of Present Illness Initial comments: This is a 23-year-old female who presented to the emergency department patient complains of chest pain since Monday. She also claims or shortness of breath. Patient states the pain as a heaviness except when she breathes very sharp and some the right side of her heart. Patient states she has dextrocardia. Patient states lying down seems to make the pain worse and sitting up makes a little better. Patient states the pain is sharp with deep breathing and heavy when she's not taking deep breath. Patient denies any cough or fever. Patient denies any control pills. Patient denies any swelling to the legs or calf tenderness. Patient states she has not had any medications for the pain. - Related Data Previous Rx's Medication Instructions Recorded Dicyclomine [Bentyl] 10 mg PO QID #20 capsule 12/21/18 Amoxicillin 875 mg PO Q12HR #20 tablet 06/20/19 Meclizine [Antivert] 25 mg PO TID PRN #15 tab 06/20/19 Ondansetron Odt [Zofran Odt] 4 mg PO Q8HR PRN #10 tab 06/20/19 Ibuprofen [Motrin] 600 mg PO Q6HR PRN #20 tab 07/08/19 Allergies Allergy/AdvReac Type Severity Reaction Status Date / Time No Known Allergies Allergy Verified 07/08/19 09:33 Review of Systems ROS Statement: Those systems with pertinent positive or pertinent negative responses have been documented in the HPI. ROS Other: All systems not noted in ROS Statement are negative. 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, situs inbersus History of Any Multi-Drug Resistant Organisms: MRSA Date of last positivie culture/infection: 2012 MDRO Source:: LEFT GROIN Past Surgical History: Appendectomy Past Psychological History: No Psychological Hx Reported Smoking Status: Former smoker Past Alcohol Use History: Occasional Past Drug Use History: Marijuana - Past Family History Mother Family Medical History: Cancer Father Family Medical History: Hypertension General Exam - General Exam Comments Initial Comments: GENERAL: Patient is well-developed and well-nourished. Patient is nontoxic and well- hydrated and is in mild distress. ENT: Neck is soft and supple. No significant lymphadenopathy is noted. Oropharynx is clear. Moist mucous membranes. Neck has full range of motion without eliciting any pain. EYES: The sclera were anicteric and conjunctiva were pink and moist. Extraocular movements were intact and pupils were equal round and reactive to light. Eyelids were unremarkable. PULMONARY: Unlabored respirations. Good breath sounds bilaterally. No audible rales rhonchi or wheezing was noted. CARDIOVASCULAR: There is a regular rate and rhythm without any murmurs gallops or rubs. Chest pain is reproducible. ABDOMEN: Soft and nontender with normal bowel sounds. No palpable organomegaly was noted. There is no palpable pulsatile mass. SKIN: Skin is clear with no lesions or rashes and otherwise unremarkable. NEUROLOGIC: Patient is alert and oriented x3. Cranial nerves II through XII are grossly intact. Motor and sensory are also intact. Normal speech, volume and content. Symmetrical smile. MUSCULOSKELETAL: Normal extremities with adequate strength and full range of motion. LYMPHATICS: No significant lymphadenopathy is noted PSYCHIATRIC: Normal psychiatric evaluation. Limitations: no limitations Course Vital Signs 07/08/19 07/08/19 09:33 10:56 Temperature 98.2 F Pulse Rate 74 69 Respiratory 18 20 Rate Blood Pressure 106/72 99/62 O2 Sat by Pulse 99 99 Oximetry Medical Decision Making - Medical Decision Making EKG shows sinus rhythm with occasional PVC at 87 bpm AL interval is 146 dresses 84 QT interval 374 QTC is 450. Patient's EKG shows no ST segment elevation or depression. Chest x-ray shows no acute abnormality. CT of the chest was done to rule out PE because of the elevated d-dimer sharp chest pain difficulty breathing. Patient is chest CT showed no PE. Toradol did seem to help the patient. - Lab Data Result diagrams: 07/08/19 10:12 07/08/19 10:12 Lab Results 07/08/19 07/08/19 07/08/19 Range/Units 10:12 10:12 10:12 WBC 6.8 (3.8-10.6) k/uL RBC 4.29 (3.80-5.40) m/uL Hgb 12.6 (11.4-16.0) gm/dL Hct 38.2 (34.0-46.0) % MCV 89.2 (80.0-100.0) fL MCH 29.5 (25.0-35.0) pg MCHC 33.1 (31.0-37.0) g/dL RDW 12.1 (11.5-15.5) % Plt Count 230 (150-450) k/uL Neutrophils % 58 % Lymphocytes % 32 % Monocytes % 4 % Eosinophils % 4 % Basophils % 0 % Neutrophils # 4.0 (1.3-7.7) k/uL Lymphocytes # 2.2 (1.0-4.8) k/uL Monocytes # 0.3 (0-1.0) k/uL Eosinophils # 0.2 (0-0.7) k/uL Basophils # 0.0 (0-0.2) k/uL D-Dimer (<0.60) mg/L FEU Sodium 138 (137-145) mmol/L Potassium 4.0 (3.5-5.1) mmol/L Chloride 105 (98-107) mmol/L Carbon Dioxide 24 (22-30) mmol/L Anion Gap 9 mmol/L BUN 8 (7-17) mg/dL Creatinine 0.62 (0.52-1.04) mg/dL Est GFR (CKD-EPI)AfAm >90 (>60 ml/min/1.73 sqM) Est GFR (CKD-EPI)NonAf >90 (>60 ml/min/1.73 sqM) Glucose 82 (74-99) mg/dL Calcium 8.9 (8.4-10.2) mg/dL Total Bilirubin 0.4 (0.2-1.3) mg/dL AST 20 (14-36) U/L ALT 13 (4-34) U/L Alkaline Phosphatase 53 (38-126) U/L Troponin I (0.000-0.034) ng/mL Total Protein 6.5 (6.3-8.2) g/dL Albumin 3.7 (3.5-5.0) g/dL Group A Strep Rapid Negative (Negative) 07/08/19 07/08/19 Range/Units 10:12 10:12 WBC (3.8-10.6) k/uL RBC (3.80-5.40) m/uL Hgb (11.4-16.0) gm/dL Hct (34.0-46.0) % MCV (80.0-100.0) fL MCH (25.0-35.0) pg MCHC (31.0-37.0) g/dL RDW (11.5-15.5) % Plt Count (150-450) k/uL Neutrophils % % Lymphocytes % % Monocytes % % Eosinophils % % Basophils % % Neutrophils # (1.3-7.7) k/uL Lymphocytes # (1.0-4.8) k/uL Monocytes # (0-1.0) k/uL Eosinophils # (0-0.7) k/uL Basophils # (0-0.2) k/uL D-Dimer 0.89 H (<0.60) mg/L FEU Sodium (137-145) mmol/L Potassium (3.5-5.1) mmol/L Chloride (98-107) mmol/L Carbon Dioxide (22-30) mmol/L Anion Gap mmol/L BUN (7-17) mg/dL Creatinine (0.52-1.04) mg/dL Est GFR (CKD-EPI)AfAm (>60 ml/min/1.73 sqM) Est GFR (CKD-EPI)NonAf (>60 ml/min/1.73 sqM) Glucose (74-99) mg/dL Calcium (8.4-10.2) mg/dL Total Bilirubin (0.2-1.3) mg/dL AST (14-36) U/L ALT (4-34) U/L Alkaline Phosphatase (38-126) U/L Troponin I <0.012 (0.000-0.034) ng/mL Total Protein (6.3-8.2) g/dL Albumin (3.5-5.0) g/dL Group A Strep Rapid (Negative) Disposition Clinical Impression: Chest wall pain Disposition: HOME SELF-CARE Condition: Good Instructions (If sedation given, give patient instructions): Chest Pain (ED), Chest Wall Pain (ED) Prescriptions: Ibuprofen [Motrin] 600 mg PO Q6HR PRN #20 tab PRN Reason: For pain Is patient prescribed a controlled substance at d/c from ED?: No Referrals: Fermín Sanabria MD [Primary Care Provider] - 1-2 days Time of Disposition: 11:53
[2019-07-08 10:22] LABS: Basophils % (A) 0 %; Eosinophils # (A) 0.2 k/uL (0-0.7); Eosinophils % (A) 4 %; HCT 38.2 % (34.0-46.0); HGB 12.6 gm/dL (11.4-16.0); Lymphocytes # (A) 2.2 k/uL (1.0-4.8); Lymphocytes % (A) 32 %; MCH 29.5 pg (25.0-35.0); MCHC 33.1 g/dL (31.0-37.0); MCV 89.2 fL (80.0-100.0); Mean Platelet Volume 8.3; Monocytes # (A) 0.3 k/uL (0-1.0); Monocytes % (A) 4 %; Neutrophils % (A) 58 %; Platelet Count 230 k/uL (150-450); RBC 4.29 m/uL (3.80-5.40); RDW 12.1 % (11.5-15.5); WBC 6.8 k/uL (3.8-10.6)
--- NOTE | 2019-07-08 10:28 | XR ---
EXAMINATION TYPE: XR chest 2V DATE OF EXAM: 07/08/2019 COMPARISON: 07/21/2018 HISTORY: Chest pain TECHNIQUE: Frontal and lateral views of the chest are obtained. FINDINGS: Again noted are changes of situs inversus. There is no focal air space opacity. No evidence for pneumothorax. No pleural effusion. The cardiac silhouette size is within normal limits. The osseous structures are grossly intact. IMPRESSION: 1. No acute cardiopulmonary process.
[2019-07-08 10:30] LABS: ALT 13 U/L (4-34); AST 20 U/L (14-36); African American GFR (CKD) >90 (>60 ml/min/1.73 sqM); Albumin 3.7 g/dL (3.5-5.0); Alkaline Phosphatase 53 U/L (38-126); Anion Gap 9 mmol/L; Blood Urea Nitrogen 8 mg/dL (7-17); Calcium 8.9 mg/dL (8.4-10.2); Carbon Dioxide 24 mmol/L (22-30); Chloride 105 mmol/L (98-107); Glucose 82 mg/dL (74-99); Non-African American GFR(CKD) >90 (>60 ml/min/1.73 sqM); Sodium 138 mmol/L (137-145); Total Bilirubin 0.4 mg/dL (0.2-1.3); Total Protein 6.5 g/dL (6.3-8.2)
[2019-07-08 10:57] VITALS: BP 99/62; PULSE 69; RESP 20
--- NOTE | 2019-07-08 11:40 | CT ---
EXAMINATION TYPE: CT chest angio for PE DATE OF EXAM: 07/08/2019 COMPARISON: None HISTORY: Chest pains, shortness of breath, elevated d-dimer (situs inversus) CT DLP: 310.7 mGycm CONTRAST: CT chest with contrast and 3D reconstruction with MIP imaging is performed with IV Contrast, patient injected with 100 mL of Isovue 370. Contrast-enhanced CT of the chest was performed through the course of the pulmonary arteries with sheila g and mediastinal window settings submitted. 3D reconstruction with MIP imaging was also performed. Patient has known situs inversus. PULMONARY ARTERIES: The pulmonary arteries and their major tributaries are patent. I do not see lizzie dence for sizable filling defect to suggest pulmonary embolic process. LUNGS: The lungs are clear and free of infiltrate. No evidence for atelectasis. No pulmonary nodule or mass is detected. No pleural effusion. MEDIASTINUM: Thoracic aorta is of normal caliber,however, evaluation is limited given timing of the contrast bolus. If there is concern for thoracic aortic pathology consider CRISTOPHER. Correlate clinicall y . The heart is not enlarged. No evidence for mediastinal mass. No mediastinal lymph nodes greater than 1cm. HILAR STRUCTURES: No evidence for mass. No hilar lymph nodes greater than 1 cm. UPPER ABDOMEN: No significant abnormality is seen. IMPRESSION: 1. No evidence for Pulmonary embolism at this time.
== END 2019-07-08 12:01 | disposition home or self-care (01) ==
LOC: EC 09:32
DX: R07.89 Other chest pain (principal); Z87.891 Personal history of nicotine dependence
CPT/HCPCS: 36415; 93005; 85379; 80053; 84484; 85025; 87081; 87430; 71046; 71275; 99285; 96374; J1885; Q9967

== ENCOUNTER 2019-07-11 22:01 | Emergency (ER) | payer OTHER ==
[2019-07-11 22:06] VITALS: BP 119/75; PULSE 91; RESP 18; TEMP 98.4
[2019-07-11 22:23] LABS: Appearance,Urine Cloudy (Clear); Bilirubin,Urine Negative (Negative); Blood,Urine Negative (Negative); Color,Urine Light Yellow; Glucose,Urine (UA) Negative (Negative); Hyaline Casts,Urine 1 /lpf (0-2); Ketones,Urine Negative (Negative); Leukocyte Esterase,Urine Large (Negative); Mucus,Urine Rare /hpf; Nitrite,Urine Negative (Negative); Protein,Urine Negative (Negative); RBC,Urine 6 /hpf (0-5); Specific Gravity,Urine 1.019 (1.001-1.035); Squamous Epithelial Cell,Urine 7 /hpf (0-4); Urobilinogen,Urine <2.0 mg/dL (<2.0); WBC,Urine 13 /hpf (0-5)
--- NOTE | 2019-07-11 22:48 | ED ---
General Adult HPI - General Chief complaint: Abdominal Pain Stated complaint: uti Time Seen by Provider: 07/11/19 22:10 Source: patient, RN notes reviewed Mode of arrival: ambulatory Limitations: no limitations - History of Present Illness Initial comments: 23-year-old female without any significant past medical history aside from appendectomy presents to the emergency department for possible urinary tract infection. Patient states that she has had urinary frequency for about 24 hours. States that about 30 minutes ago she had an episode of dysuria. States that otherwise she has felt her normal self. Denies any abdominal pain at resting. Denies any back pain. Denies any fevers or chills. States she has had previous urinary tract infections and that this feels similar. Patient denies any vaginal discharge.Patient has no other complaints at this time including shortness of breath, chest pain, abdominal pain, nausea or vomiting, headache, or visual changes. - Related Data Previous Rx's Medication Instructions Recorded Dicyclomine [Bentyl] 10 mg PO QID #20 capsule 12/21/18 Amoxicillin 875 mg PO Q12HR #20 tablet 06/20/19 Meclizine [Antivert] 25 mg PO TID PRN #15 tab 06/20/19 Ondansetron Odt [Zofran Odt] 4 mg PO Q8HR PRN #10 tab 06/20/19 Ibuprofen [Motrin] 600 mg PO Q6HR PRN #20 tab 07/08/19 Nitrofurantoin Monohyd/M-Cryst 100 mg PO Q12HR #14 cap 07/11/19 [Macrobid] Allergies Allergy/AdvReac Type Severity Reaction Status Date / Time No Known Allergies Allergy Verified 07/08/19 09:33 Review of Systems ROS Statement: Those systems with pertinent positive or pertinent negative responses have been documented in the HPI. ROS Other: All systems not noted in ROS Statement are negative. 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, situs inbersus History of Any Multi-Drug Resistant Organisms: MRSA Date of last positivie culture/infection: 2012 MDRO Source:: LEFT GROIN Past Surgical History: Appendectomy Past Psychological History: No Psychological Hx Reported Smoking Status: Former smoker Past Alcohol Use History: Occasional Past Drug Use History: Marijuana - Past Family History Mother Family Medical History: Cancer Father Family Medical History: Hypertension General Exam Limitations: no limitations General appearance: alert, in no apparent distress Head exam: Present: atraumatic, normocephalic, normal inspection Eye exam: Present: normal appearance, PERRL, EOMI. Absent: scleral icterus, conjunctival injection, periorbital swelling ENT exam: Present: normal exam, mucous membranes moist Neck exam: Present: normal inspection, full ROM. Absent: tenderness, meningismus, lymphadenopathy Respiratory exam: Present: normal lung sounds bilaterally. Absent: respiratory distress, wheezes, rales, rhonchi, stridor Cardiovascular Exam: Present: regular rate, normal rhythm, normal heart sounds. Absent: systolic murmur, diastolic murmur, rubs, gallop, clicks GI/Abdominal exam: Present: soft, normal bowel sounds. Absent: distended, tenderness (No abdominal tenderness on exam), guarding, rebound, rigid Expanded GI/Abdominal exam: Absent: heel tap sign Back exam: Absent: CVA tenderness (R), CVA tenderness (L) Course Vital Signs 07/11/19 22:02 Temperature 98.4 F Pulse Rate 91 Respiratory 18 Rate Blood Pressure 119/75 O2 Sat by Pulse 98 Oximetry Medical Decision Making - Medical Decision Making Patient presents for dysuria and urinary frequency that started today. Vitals are stable. Patient is afebrile. Exam is unremarkable. Abdomen is benign. Nontender. Non-peritoneal. No CVA tenderness. Patient does have 13 white blood cells with large leukocyte esterase. I discussed starting antibiotics today or waiting for culture. Patient prefers to start antibiotics today. She will follow up on culture results. She will return if she is any worsening symptoms including fevers or lower abdominal pain at rest. - Lab Data Lab Results 07/11/19 07/11/19 Range/Units 22:12 22:12 Urine Color Light Yellow Urine Appearance Cloudy H (Clear) Urine pH 6.0 (5.0-8.0) Ur Specific [place]cher 1.019 (1.001-1.035) Urine Protein Negative (Negative) Urine Glucose (UA) Negative (Negative) Urine Ketones Negative (Negative) Urine Blood Negative (Negative) Urine Nitrite Negative (Negative) Urine Bilirubin Negative (Negative) Urine Urobilinogen <2.0 (<2.0) mg/dL Ur Leukocyte Esterase Large H (Negative) Urine RBC 6 H (0-5) /hpf Urine WBC 13 H (0-5) /hpf Ur Squamous Epith Cells 7 H (0-4) /hpf Hyaline Casts 1 (0-2) /lpf Urine Mucus Rare H (None) /hpf Urine HCG, Qual Not Detected (Not Detectd) Disposition Clinical Impression: Dysuria Disposition: HOME SELF-CARE Condition: Good Instructions (If sedation given, give patient instructions): Urinary Tract Infection in Women (ED) Additional Instructions: Please take antibiotic as directed. Please follow-up with primary care in 1-2 days. Return to the emergency department if you have any worsening symptoms. Prescriptions: Nitrofurantoin Monohyd/M-Cryst [Macrobid] 100 mg PO Q12HR #14 cap Is patient prescribed a controlled substance at d/c from ED?: No Referrals: Fermín Sanabria MD [Primary Care Provider] - 1-2 days Time of Disposition: 22:45
== END 2019-07-11 23:01 | disposition home or self-care (01) ==
LOC: EC 22:01
DX: R30.0 Dysuria (principal); R35.0 Frequency of micturition; Q24.0 Dextrocardia; Z87.891 Personal history of nicotine dependence; Z90.89 Acquired absence of other organs
CPT/HCPCS: 81001; 81025; 87086; 99284

== ENCOUNTER 2019-11-12 17:10 | Emergency (ER) | payer OTHER ==
[2019-11-12 17:14] VITALS: TEMP 98.3
[2019-11-12] MEDS ORDERED: KETOROLAC 30 MG/ML 1 ML VIAL IM STA (17:28)
--- NOTE | 2019-11-12 17:31 | ED ---
General Adult HPI - General Chief complaint: Chest Pain Stated complaint: Chest pain Time Seen by Provider: 11/12/19 17:20 Source: patient, RN notes reviewed Mode of arrival: ambulatory Limitations: no limitations - History of Present Illness Initial comments: 23-year-old female with a past medical history of dextrocardia, situs inversus presents to the emergency department for a chief complaint of chest pain. Patient states that she had chest pain starting about 6 hours ago. States it is on the left side of the chest. Patient states twisting and moving significantly worsen his pain. States lying on her left side or applying pressure to the left side worsen her pain. Patient states lifting her left arm worsens the pain. She denies any shortness of breath associated with this. Denies any control pills. Denies any swelling of the legs. Denies any long periods of immobilization. Patient does not recall injuring her chest but does states she worked out 3 days ago. No fevers or chills. No cough.Patient has no other complaints at this time including shortness of breath, abdominal pain, nausea or vomiting, headache, or visual changes. - Related Data Previous Rx's Medication Instructions Recorded Dicyclomine [Bentyl] 10 mg PO QID #20 capsule 12/21/18 Amoxicillin 875 mg PO Q12HR #20 tablet 06/20/19 Meclizine [Antivert] 25 mg PO TID PRN #15 tab 06/20/19 Ondansetron Odt [Zofran Odt] 4 mg PO Q8HR PRN #10 tab 06/20/19 Ibuprofen [Motrin] 600 mg PO Q6HR PRN #20 tab 07/08/19 Nitrofurantoin Monohyd/M-Cryst 100 mg PO Q12HR #14 cap 07/11/19 [Macrobid] Allergies Allergy/AdvReac Type Severity Reaction Status Date / Time No Known Allergies Allergy Verified 07/08/19 09:33 Review of Systems ROS Statement: Those systems with pertinent positive or pertinent negative responses have been documented in the HPI. ROS Other: All systems not noted in ROS Statement are negative. 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, situs inbersus History of Any Multi-Drug Resistant Organisms: MRSA Date of last positivie culture/infection: 2012 MDRO Source:: LEFT GROIN Past Surgical History: Appendectomy Past Psychological History: No Psychological Hx Reported Smoking Status: Former smoker Past Alcohol Use History: Occasional Past Drug Use History: Marijuana - Past Family History Mother Family Medical History: Cancer Father Family Medical History: Hypertension General Exam Limitations: no limitations General appearance: alert, in no apparent distress Head exam: Present: atraumatic, normocephalic, normal inspection Eye exam: Present: normal appearance, PERRL, EOMI. Absent: scleral icterus, conjunctival injection, periorbital swelling ENT exam: Present: normal exam, mucous membranes moist Neck exam: Present: normal inspection, full ROM. Absent: tenderness, meningismus, lymphadenopathy Respiratory exam: Present: normal lung sounds bilaterally, chest wall tenderness (Patient has significant left-sided chest wall tenderness). Absent: respirat ory distress, wheezes, rales, rhonchi, stridor Cardiovascular Exam: Present: regular rate, normal rhythm, normal heart sounds. Absent: systolic murmur, diastolic murmur, rubs, gallop, clicks GI/Abdominal exam: Present: soft, normal bowel sounds. Absent: distended, tenderness, guarding, rebound, rigid Neurological exam: Present: alert Course Vital Signs 11/12/19 17:12 Temperature 98.3 F Pulse Rate 85 Respiratory 18 Rate Blood Pressure 142/76 O2 Sat by Pulse 98 Oximetry EKG Findings - EKG Comments: EKG Findings:: Normal sinus rhythm, ventricular rate 80, [place] interval 142, QTC 435, this was flipped as patient does have a history of situs inversus. Compared to 07/08/2019, both reviewed by Dr. Palacios. Medical Decision Making - Medical Decision Making Vitals are stable. Patient reports chest pain worsens with movement of the left arm as well as twisting and pressure to the left side of the chest. Upon further history taking patient does report that she started working out for the first time this week. Pain is very consistent with a musculoskeletal chest wall pain. Chest x-ray shows no acute lung disease. Situs inversus. Patient refused test sitting there is no way she is and she does not want this done. She was given IM Toradol. Discussed Motrin and Tylenol for pain. She will follow-up with primary care in 1-2 days or return for any worsening symptoms. Previous visits were reviewed and patient has been seen several times for chest pain. Patient had CTA of the chest four months ago which was normal. Disposition Clinical Impression: Chest wall pain Disposition: HOME SELF-CARE Condition: Good Instructions (If sedation given, give patient instructions): Costochondritis (ED) Additional Instructions: Please take Motrin and Tylenol for pain. Follow-up with primary care in 1-2 days. Return here to the emergency room for any worsening symptoms. Is patient prescribed a controlled substance at d/c from ED?: No Referrals: Fermín Sanabria MD [Primary Care Provider] - 1-2 days Time of Disposition: 18:43
--- NOTE | 2019-11-12 17:57 | XR ---
EXAMINATION TYPE: XR chest 2V DATE OF EXAM: 11/12/2019 COMPARISON: 07/21/2018 HISTORY: Left side chest pain. TECHNIQUE: 2 views FINDINGS: There is dextrocardia. The stomach is on the right side. There is situs inversus. Lungs are clear. There is no heart failure. Pulmonary vascularity is normal. IMPRESSION: Situs inversus. No acute lung disease. No change.
[2019-11-12 19:04] VITALS: BP 135/68; PULSE 72; RESP 20
== END 2019-11-12 18:50 | disposition home or self-care (01) ==
LOC: EC 17:10
DX: R07.89 Other chest pain (principal); Q89.3 Situs inversus; Z87.891 Personal history of nicotine dependence
CPT/HCPCS: 93005; 71046; 99285; 96372; J1885

== ENCOUNTER 2020-11-09 15:37 | Emergency (ER) | payer BC, OTHER ==
[2020-11-09] MEDS ORDERED: SODIUM CHLORIDE 0.9% 2,000 ML IV STA (17:50)
[2020-11-09] MEDS ORDERED: METOCLOPRAMIDE 5 MG/ML 2 ML VIAL IVP STA (17:58)
[2020-11-09 18:04] LABS: Basophils # (A) 0.1 k/uL (0-0.2); Basophils % (A) 1 %; Eosinophils # (A) 0.2 k/uL (0-0.7); Eosinophils % (A) 2 %; HCT 43.4 % (34.0-46.0); HGB 14.7 gm/dL (11.4-16.0); Lymphocytes # (A) 2.8 k/uL (1.0-4.8); Lymphocytes % (A) 24 %; MCH 29.6 pg (25.0-35.0); MCHC 33.9 g/dL (31.0-37.0); MCV 87.4 fL (80.0-100.0); Mean Platelet Volume 7.8; Monocytes # (A) 0.3 k/uL (0-1.0); Monocytes % (A) 3 %; Neutrophils % (A) 70 %; Platelet Count 292 k/uL (150-450); RBC 4.97 m/uL (3.80-5.40); RDW 12.4 % (11.5-15.5); WBC 11.4 k/uL (3.8-10.6)
--- NOTE | 2020-11-09 18:07 | ED ---
Abdominal Pain HPI - General Chief Complaint: Abdominal Pain Stated Complaint: Abd PAin, 8 weeks Time Seen by Provider: 11/09/20 17:50 Source: patient, RN notes reviewed Mode of arrival: ambulatory Limitations: no limitations - History of Present Illness Initial Comments: This is a 24-year-old female presents emergency from chief complaint nausea vomiting diarrhea and . Patient states she is always a weeks . Patient had a prior ultrasound which showed intrauterine gestational, patient states that she's been an in and antibiotics for tonsillitis, pressure infection. Patient states she finished amoxicillin, started on azithromycin today states that upset her stomach she's never taken this before. Patient denies fevers or chills. Complains of right-sided abdominal discomfort. No chest pain or shortness breath no sick contacts no vaginal bleeding or discharge. - Related Data Home Medications Medication Instructions Recorded Confirmed Azithromycin [Zithromax Z-pack (6 See Taper PO DAILY 11/09/20 11/09/20 tabs)] Ciprofloxacin-Dexameth [Ciprodex 3 drops RIGHT EAR BID 11/09/20 11/09/20 Otic Susp] Previous Rx's Medication Instructions Recorded Ondansetron Odt [Zofran Odt] 4 mg PO Q8HR PRN #10 tab 11/09/20 Allergies Allergy/AdvReac Type Severity Reaction Status Date / Time No Known Allergies Allergy Verified 11/09/20 19:26 Review of Systems ROS Statement: Those systems with pertinent positive or pertinent negative responses have been documented in the HPI. ROS Other: All systems not noted in ROS Statement are negative. 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, situs inbersus History of Any Multi-Drug Resistant Organisms: MRSA Date of last positivie culture/infection: 2012 MDRO Source:: LEFT GROIN Past Surgical History: Appendectomy Past Psychological History: No Psychological Hx Reported Smoking Status: Never smoker Past Alcohol Use History: Occasional Past Drug Use History: Marijuana - Past Family History Mother Family Medical History: Cancer Father Family Medical History: Hypertension General Exam Limitations: no limitations General appearance: alert, in no apparent distress Head exam: Present: atraumatic, normocephalic, normal inspection Respiratory exam: Present: normal lung sounds bilaterally. Absent: respiratory distress, wheezes, rales, rhonchi, stridor Cardiovascular Exam: Present: regular rate, normal rhythm, normal heart sounds. Absent: systolic murmur, diastolic murmur, rubs, gallop, clicks GI/Abdominal exam: Present: soft, tenderness (Mild left-sided), normal bowel sounds. Absent: distended, guarding, rebound, rigid Back exam: Absent: CVA tenderness (R), CVA tenderness (L) Neurological exam: Present: alert Course Vital Signs 11/09/20 11/09/20 11/09/20 16:02 17:42 18:33 Temperature 98.1 F Pulse Rate 89 81 81 Respiratory 18 18 18 Rate Blood Pressure 111/72 110/74 95/51 O2 Sat by Pulse 100 98 99 Oximetry 11/09/20 20:04 Temperature 99.1 F Pulse Rate 88 Respiratory 16 Rate Blood Pressure 111/66 O2 Sat by Pulse 100 Oximetry Medical Decision Making - Medical Decision Making Patient presented for nausea vomiting after antibiotics today. Patient was hydrated given antiemetics feels improved patient does have left ovarian cyst, no heart rate on it family ultrasound may have miscarriage patient advised to recheck and return for - Lab Data Result diagrams: 11/09/20 17:55 11/09/20 17:55 Lab Results 11/09/20 11/09/20 11/09/20 Range/Units 17:55 17:55 17:55 WBC 11.4 H (3.8-10.6) k/uL RBC 4.97 (3.80-5.40) m/uL Hgb 14.7 (11.4-16.0) gm/dL Hct 43.4 (34.0-46.0) % MCV 87.4 (80.0-100.0) fL MCH 29.6 (25.0-35.0) pg MCHC 33.9 (31.0-37.0) g/dL RDW 12.4 (11.5-15.5) % Plt Count 292 (150-450) k/uL MPV 7.8 Neutrophils % 70 % Lymphocytes % 24 % Monocytes % 3 % Eosinophils % 2 % Basophils % 1 % Neutrophils # 8.0 H (1.3-7.7) k/uL Lymphocytes # 2.8 (1.0-4.8) k/uL Monocytes # 0.3 (0-1.0) k/uL Eosinophils # 0.2 (0-0.7) k/uL Basophils # 0.1 (0-0.2) k/uL Sodium 138 (137-145) mmol/L Potassium 3.8 (3.5-5.1) mmol/L Chloride 103 (98-107) mmol/L Carbon Dioxide 23 (22-30) mmol/L Anion Gap 12 mmol/L BUN 8 (7-17) mg/dL Creatinine 0.54 (0.52-1.04) mg/dL Est GFR (CKD-EPI)AfAm >90 (>60 ml/min/1.73 sqM) Est GFR (CKD-EPI)NonAf >90 (>60 ml/min/1.73 sqM) Glucose 84 (74-99) mg/dL Calcium 10.2 (8.4-10.2) mg/dL Total Bilirubin 0.3 (0.2-1.3) mg/dL AST 25 (14-36) U/L ALT 27 (4-34) U/L Alkaline Phosphatase 71 (38-126) U/L Total Protein 8.2 (6.3-8.2) g/dL Albumin 4.9 (3.5-5.0) g/dL Amylase 49 (30-110) U/L Lipase 49 (23-300) U/L Urine Color Yellow Urine Appearance Cloudy H (Clear) Urine pH 7.0 (5.0-8.0) Ur Specific [place] 1.027 (1.001-1.035) Urine Protein Negative (Negative) Urine Glucose (UA) Negative (Negative) Urine Ketones 2+ H (Negative) Urine Blood Negative (Negative) Urine Nitrite Negative (Negative) Urine Bilirubin Negative (Negative) Urine Urobilinogen <2.0 (<2.0) mg/dL Ur Leukocyte Esterase Negative (Negative) Urine RBC 1 (0-5) /hpf Urine WBC 1 (0-5) /hpf Ur Squamous Epith Cells 5 H (0-4) /hpf Urine Bacteria Rare H (None) /hpf Urine Mucus Rare H (None) /hpf Disposition Clinical Impression: Ovarian cyst, Threatened miscarriage, Nausea & vomiting Disposition: HOME SELF-CARE Condition: Stable Instructions (If sedation given, give patient instructions): Abdominal Pain in (ED) Additional Instructions: Please return to the Emergency Department if symptoms worsen or any other concerns. Prescriptions: Ondansetron Odt [Zofran Odt] 4 mg PO Q8HR PRN #10 tab PRN Reason: Nausea Is patient prescribed a controlled substance at d/c from ED?: No Referrals: Fermín Sanabria MD [Primary Care Provider] - 1-2 days Time of Disposition: 20:36
[2020-11-09 18:11] LABS: Appearance,Urine Cloudy (Clear); Bacteria,Urine Rare /hpf; Bilirubin,Urine Negative (Negative); Blood,Urine Negative (Negative); Color,Urine Yellow; Glucose,Urine (UA) Negative (Negative); Ketones,Urine 2+ (Negative); Leukocyte Esterase,Urine Negative (Negative); Mucus,Urine Rare /hpf; Nitrite,Urine Negative (Negative); Protein,Urine Negative (Negative); RBC,Urine 1 /hpf (0-5); Specific Gravity,Urine 1.027 (1.001-1.035); Squamous Epithelial Cell,Urine 5 /hpf (0-4); Urobilinogen,Urine <2.0 mg/dL (<2.0); WBC,Urine 1 /hpf (0-5)
[2020-11-09 18:12] LABS: ALT 27 U/L (4-34); AST 25 U/L (14-36); African American GFR (CKD) >90 (>60 ml/min/1.73 sqM); Albumin 4.9 g/dL (3.5-5.0); Alkaline Phosphatase 71 U/L (38-126); Amylase 49 U/L (30-110); Anion Gap 12 mmol/L; Blood Urea Nitrogen 8 mg/dL (7-17); Calcium 10.2 mg/dL (8.4-10.2); Carbon Dioxide 23 mmol/L (22-30); Chloride 103 mmol/L (98-107); Glucose 84 mg/dL (74-99); Lipase 49 U/L (23-300); Non-African American GFR(CKD) >90 (>60 ml/min/1.73 sqM); Potassium 3.8 mmol/L (3.5-5.1); Sodium 138 mmol/L (137-145); Total Bilirubin 0.3 mg/dL (0.2-1.3); Total Protein 8.2 g/dL (6.3-8.2)
[2020-11-09 20:06] VITALS: BP 111/66; PULSE 88; RESP 16; TEMP 99.1
--- NOTE | 2020-11-09 20:21 | US ---
EXAMINATION TYPE: Transabdominal DATE OF EXAM: 11/09/2020 7:43 PM COMPARISON: NONE for this . CT, US CLINICAL HISTORY: pain, LLQ. Pain. . EXAM PERFORMED: Transvaginal (TV) and Transabdominal (TA) EXAM MEASUREMENTS: GESTATIONAL AGE / DATING Physician Established: (7 weeks/4 days) EDC: 06/24/2021 Dates by LMP: (8 weeks/6 days) EDC: 06/15/2021 Dates by First Scan: This is first scan. Dates by Current Scan for: ( 6 weeks/1 day) EDC: 07/04/2021. Gestational sac and possible pole seen, no heart tones seen at this time. MATERNAL ANATOMY Uterus: 9.1 x 7.9 x 6.0 cm. Subcentimeter anechoic area seen in cervix, may represent nabothian cyst. Right Ovary: 2.4 x 1.8 x 1.6 cm. Left Ovary: 4.9 x 3.0 x 2.5 cm. Post CDS / Adnexa: Anechoic area seen adjacent to right ovary: 0.6 x 0.7 x 0.8, nonspecific and may r elate to benign cyst. Fluid seen in cul de sac: 2.1 x 1.3 x 0.3 cm. Fluid seen in left adnexa: 0.9 x 0.6 x 1.1 cm. Presence of free fluid: Yes, in CDS and left adnexa. Presence of corpus luteal cyst: Complex area with vascularity seen within the left ovary: 2.6 x 2.6 x 2.1 cm. Presence of subchorionic bleed: Hypoechoic area seen adjacent to the gestational sac: 2.1 x 1.2 x 1.3 cm. GESTATION / SURVEY CRL: 0.44 cm. (6 weeks/1 day) MSD: 2.37 cm. (7 weeks/0 days) Yolk Sac (normal less than 6mm): Not seen. Heart Rate: Heart tones not seen at this time. IUP: Gestational sac and possible pole seen at this time. Date of LMP: 09/08/2020 Beta HcG (if available): Not available. IMPRESSION: Endometrial saclike structure without tone or yolk sac. Findings may relate to early but failed cannot be excluded. Recommend serial beta hCG and follow-up imaging as indicated .
== END 2020-11-09 20:45 | disposition home or self-care (01) ==
LOC: EC 15:37
DX: O20.0 Threatened abortion (principal); O34.81 Maternal care for other abnormalities of pelvic organs, first trimester; N83.202 Unspecified ovarian cyst, left side; O21.9 Vomiting of pregnancy, unspecified; Z3A.00 Weeks of gestation of pregnancy not specified; O99.321 Drug use complicating pregnancy, first trimester; F12.90 Cannabis use, unspecified, uncomplicated; Z82.49 Family history of ischemic heart disease and other diseases of the circulatory system
CPT/HCPCS: 36415; 80053; 82150; 83690; 85025; 81001; 76801; 76817; 96374; 96361 ×2; 99284; J2765

== ENCOUNTER → 2020-11-14 | Outpatient (CLI) | payer OTHER ==
[2020-11-14 09:40] LABS: Basophils % (A) 0 %; Eosinophils # (A) 0.1 k/uL (0-0.7); Eosinophils % (A) 2 %; HCT 37.9 % (34.0-46.0); HGB 13.2 gm/dL (11.4-16.0); Lymphocytes % (A) 26 %; MCH 30.5 pg (25.0-35.0); MCHC 34.7 g/dL (31.0-37.0); Mean Platelet Volume 8.7; Monocytes # (A) 0.3 k/uL (0-1.0); Monocytes % (A) 3 %; Neutrophils # (A) 5.2 k/uL (1.3-7.7); Neutrophils % (A) 68 %; Platelet Count 232 k/uL (150-450); RBC 4.31 m/uL (3.80-5.40); RDW 12.4 % (11.5-15.5); WBC 7.7 k/uL (3.8-10.6)
== END | disposition home or self-care (01) ==
LOC: LABPAT 09:21
PROVIDERS: ATTEND Obstetrics & Gynecology
DX: Z01.812 Encounter for preprocedural laboratory examination (principal); O02.1 Missed abortion; Z3A.00 Weeks of gestation of pregnancy not specified
CPT/HCPCS: 85025

== ENCOUNTER 2020-11-17 06:07 | Day surgery (SDC) | payer OTHER ==
[2020-11-12 12:52] VITALS: BMI 27.6
[~2020-11-17 06:07] MED LIST: Pre Op ABX Message 1 EACH MISC MISCELLANE ONE
[2020-11-17] MEDS ORDERED: LACTATED RINGERS 1,000 ML IV ONE ×2 (07:04)
[2020-11-17] MEDS ORDERED: ONDANSETRON 4 MG/2 ML VIAL ONE ×2 (07:09→08:31)
[2020-11-17] MEDS ORDERED: DEXAMETHASONE SOD PHOSPHATE 4 MG/ML 1 ML VIAL IVP ONE (07:13)
[2020-11-17] MEDS ORDERED: SUCCINYLCHOLINE CHLORIDE 100 MG/5 ML SYR IV ONE (07:14)
[2020-11-17] MEDS ORDERED: KETOROLAC 15 MG/ML 1 ML VIAL ONE (07:14)
[2020-11-17] MEDS ORDERED: MIDAZOLAM 2 MG/2 ML VIAL ONE (07:14)
[2020-11-17] MEDS ORDERED: LIDOCAINE 1% INJ 10MG/ML (20 ML MDV) ONE (07:14)
[2020-11-17] MEDS ORDERED: fentaNYL (PF) 50 MCG/ML 2 ML AMP ONE (07:14)
[2020-11-17] MEDS ORDERED: PROPOFOL 10 MG/ML 20 ML VIAL IV ONE (07:14)
[2020-11-17] MEDS ORDERED: SCOPOLAMINE 1.5MG/72HR PATCH TRANSDERM ONE (07:15)
[2020-11-17] MEDS ORDERED: SILVER NITRATE APPLICATOR 1 EACH STICK..EA. TOPICAL ONE (07:42)
--- NOTE | 2020-11-17 07:50 | P.OP ---
Date of Procedure: 11/17/20 Preoperative Diagnosis: Missed at 8 weeks gestation, blood type A positive. Postoperative Diagnosis: Same Procedure(s) Performed: Suction dilatation and curettage of the uterus Anesthesia: MINNIE Surgeon: Herlinda Diego Estimated Blood Loss (ml): 100 IV fluids (ml): 250 Urine output (ml): 50 Pathology: other (Intrauterine curettings) Condition: stable Disposition: PACU Description of Procedure: This is a 25-year-old female who presents with a history of miscarriage, sonographic findings consistent with no heartbeat. Blood type is A+. She presents for suction D&C. The appropriate timeout is performed to assure proper patient and procedural identification. Patient is brought to the operating suite. She is given a general anesthetic and placed in the dorsal lithotomy position. Examination under anesthesia reveals an anteverted uterus of approximately 8 weeks size, negative adnexa bilaterally. Bladder is drained for 50 mL of clear yellow urine. The cervix, vagina, perineal bodies are all prepped and draped in usual sterile fashion. Weighted speculum was placed into the vagina. Anterior lip of the cervix is grasped with an Allis clamp. Uterus sounds to a depth of 12 cm in the anteverted position. Cervix is gently and systematically dilated using Hanks dilators with little resistance. A #8 curved curet is placed to the dome of the fundus and under appropriate suction pressures the uterine cavity is curettaged thoroughly. A sharp medium curette is used to be certain that the cavity is completely clear. No retained products of conception are noted. The suction catheter is once again placed, no additional blood or fluid is obtained. All sponge needle and enhancement counts are correct. Patient is brought back to the recovery room in very good condition with stable vital signs including a blood pressure of 102/65, pulse 84, 99% O2 saturation. Toradol is given prior to leaving the OR. She will follow-up with me in the office in 2 weeks.
[2020-11-17 08:00] VITALS: TEMP 96.8
[2020-11-17] MEDS ORDERED: HYDROmorphone 0.5 MG/0.5 ML SYRINGE IVP ONE (08:07)
[2020-11-17 08:09] VITALS: RESP 16
[2020-11-17] MEDS ORDERED: ONDANSETRON 4 MG/2 ML VIAL IVP ONE (08:39)
[2020-11-17 08:54] VITALS: BP 104/66; PULSE 58
== END 2020-11-17 09:33 | disposition home or self-care (01) ==
LOC: OR 06:07
PROVIDERS: ATTEND Obstetrics & Gynecology
DX: O02.1 Missed abortion (principal); Q24.0 Dextrocardia; J45.909 Unspecified asthma, uncomplicated; Z87.891 Personal history of nicotine dependence; Z79.899 Other long term (current) drug therapy
CPT/HCPCS: 86900; 86901; 88305; 86850; 59812; J2250; J1100; J2405; J2001; J3010; J1885; J0330; J2704; J1170

== ENCOUNTER 2022-10-25 06:01 | Emergency (ER) | payer OTHER ==
[2022-10-25 06:08] VITALS: RESP 18
[2022-10-25] MEDS ORDERED: IBUPROFEN 800 MG TAB PO STA (06:48)
--- NOTE | 2022-10-25 06:54 | ED ---
Fall HPI - General Chief Complaint: Fall Stated Complaint: Fell down stairs, Right Ankle Injury Time Seen by Provider: 10/25/22 06:18 Source: patient, RN notes reviewed Mode of arrival: ambulatory Limitations: no limitations - History of Present Illness Initial Comments: This is a 26-year-old female who presents to the emergency department for a fall. Patient was carrying her down the stairs when she tripped over her cat. States that she slid down a couple of stars initially and then fell face first onto the ground. Denies any loss of consciousness. Currently complaining of pain to the right ankle, right thigh, and lower back. Also reports pain to the left side of her jaw, which is worse when trying to open her mouth. Denies any fevers, chills, sore throat, cough, dyspnea, chest pain, palpitations, abdominal pain, nausea, vomiting, diarrhea, or back pain. MD Complaint: fall Fall From: standing Place Fall Occurred: home Loss of Consciousness: none Prolonged Down Time?: no Location: face, back Location - Extremities: Right: Thigh, Ankle Context: tripped/slipped - Related Data Home Medications Medication Instructions Recorded Confirmed Albuterol Inhaler [Ventolin Hfa 1 puff INHALATION DIRECTED PRN 11/12/20 06/29/21 Inhaler] Aspirin [Children's Aspirin] 81 mg PO DAILY 06/29/21 06/29/21 Pnv No.95/Ferrous Fum/Folic AC 1 each PO DAILY 06/29/21 06/29/21 [ Multivitamin Tablet] Allergies Allergy/AdvReac Type Severity Reaction Status Date / Time No Known Allergies Allergy Verified 10/25/22 06:05 Review of Systems ROS Statement: Those systems with pertinent positive or pertinent negative responses have been documented in the HPI. ROS Other: All systems not noted in ROS Statement are negative. Past Medical History Past Medical History: Asthma Additional Past Medical History / Comment(s): dextrocardia-situs inversus, heart murmer, seasonal asthma, hx anemia, denies any vaginal discharge History of Any Multi-Drug Resistant Organisms: MRSA Date of last positivie culture/infection: 2015 MDRO Source:: rt index finger Past Surgical History: Appendectomy Additional Past Surgical History / Comment(s): oral surgery Past Anesthesia/Blood Transfusion Reactions: Motion Sickness, Postoperative Nausea & Vomiting (PONV) Past Psychological History: No Psychological Hx Reported Smoking Status: Never smoker Past Alcohol Use History: Occasional Past Drug Use History: Marijuana - Past Family History Mother Family Medical History: No Reported History Father Family Medical History: Hypertension General Exam Limitations: no limitations General appearance: alert, in no apparent distress Head exam: Present: atraumatic, normocephalic, normal inspection ENT exam: Present: other (Tenderness to palpation of the left mandible. No visible or palpable deformities.) Respiratory exam: Present: normal lung sounds bilaterally. Absent: respiratory distress, wheezes, rales, rhonchi, stridor Cardiovascular Exam: Present: regular rate, normal rhythm, normal heart sounds. Absent: systolic murmur, diastolic murmur, rubs, gallop, clicks Extremities exam: Present: other (Minor abrasion with surrounding tenderness to the lateral aspect of the right ankle. 2+ DP and PT pulses. Full active and passive range of motion. Tenderness to palpation over the posterior aspect of the right thigh.) Neurological exam: Present: alert, oriented X3, CN II-XII intact Psychiatric exam: Present: normal affect, normal mood Skin exam: Present: warm, dry, intact, normal color. Absent: rash Course Vital Signs 10/25/22 10/25/22 06:05 08:51 Temperature 97.9 F 97.6 F Pulse Rate 115 H 77 Respiratory 18 18 Rate Blood Pressure 147/90 115/74 O2 Sat by Pulse 98 97 Oximetry Medical Decision Making - Medical Decision Making This is a 26-year-old female who presents to the emergency department for a fall. Was pt. sent in by a medical professional or institution? @ -No Did you speak to anyone other than the patient for history? @ -No Did you review nursing and triage notes? @ -Yes, and I agree, it is accurate with regards to the patient's symptoms. Were old charts reviewed? @ -No Differential Diagnosis? @ -Differential Diagnosis Head Injury: Contusion, hematoma, intracranial hemorrhage, skull fracture, whiplash, concussion, this is not meant to be an all-inclusive list. -Differential Ankle Pain: Fracture, dislocation, sprain, contusion, this is not meant to be an all-inc lusive list. EKG interpreted by me (3pts min.)? @ -Not obtained X-rays interpreted by me (1pt min.)? @ -X-ray of the right ankle, femur, and lumbar spine obtained. My interpretation of all imaging reveals no acute fractures or dislocations. CT interpreted by me (1pt min.)? @ Computed tomography scan of the brain, facial bones, and c-spine obtained. My interpretation identifies no evidence of an acute intracranial hemorrhage, skull fracture, or cervical spine fracture. U/S interpreted by me (1pt. min.)? @ -Not obtained What testing was considered but not performed? (CT, X-rays, U/S, labs)? Why? @ -None What meds were considered but not given? Why? @ -None Did you discuss the management of the patient with other professionals? @ -No Did you reconcile home meds? @ -No Was smoking cessation discussed for >3mins.? @ -No Was critical care preformed (if so, how long)? @ -No Were there social determinants of health that impacted care today? How? (Homelessness, low income, unemployed, alcoholism, drug addiction, transportation, low edu. Level, literacy, decrease access to med. care, prison, rehab)? @ -No Was there de-escalation of care discussed even if they declined? (Discuss DNR or withdrawal of care, Hospice)? @ -No What co-morbidities impacted this encounter? (DM, HTN, Smoking, COPD, CAD, Ca ncer, CVA, Hep., AIDS, mental health diagnosis, sleep apnea, morbid obesity)? @ -None Was patient admitted / discharged? @ -Discharged. X-ray of the right ankle, right femur, and lumbar spine obtained revealing no acute findings. Given that the patient had severe pain to the jaw with associated head injury, she expressed significant concern and requested to proceed with imaging of the brain. I was agreeable to this. Computed tomography scan of the brain, C-spine, and facial bones obtained revealing no acute findings. However, it did identify a likely Chiari I malformation. This was discussed with the patient. She is instructed to review this with her primary care provider for instructions on how to proceed forward. Ibuprofen administered for pain and she was discharged home in stable condition. Patient is instructed to alternate with ibuprofen and tylenol for pain relief and apply ice to the areas of pain for 15-20 minutes every 2-3 hours for the first 2-3 days followed by heat there afterwards. Undiagnosed new problem with uncertain prognosis? @ -None Drug Therapy requiring intensive monitoring for toxicity (Heparin, Nitro, Insulin, Cardizem)? @ -None Were any procedures done? @ -None Diagnosis/symptom? @ -Fall, head injury, right ankle pain Acute, or Chronic, or Acute on Chronic? @ -Acute Uncomplicated (without systemic symptoms) or Complicated (systemic symptoms)? @ -Uncomplicated Side effects of treatment? @ -None Exacerbation, Progression, or Severe Exacerbation] @ -Not applicable Poses a threat to life or bodily function? @ -No Return precautions reviewed in depth, the patient is instructed to return to the emergency department with any new, worsening, or concerning symptoms. Patient verbalized understanding. This case was discussed in detail with the attending ED physician, Dr. Tatum. Presentation, findings, and treatment plan discussed in detail as well. - Radiology Data Radiology results: report reviewed, image reviewed Disposition Clinical Impression: Fall, Head injury, Right ankle pain, Right thigh pain, Chiari malformation type I Disposition: HOME SELF-CARE Instructions (If sedation given, give patient instructions): Ankle Sprain (ED), Head Injury (ED) Additional Instructions: Return to the emergency department with any new, worsening, or concerning symptoms. Alternate with ibuprofen and Tylenol as needed for pain relief. Apply ice to the affected areas for 15-20 minutes every 2-3 hours. Follow up with your primary care provider in 1-2 days and discuss the chiari malformation noted on the CT scan. Is patient prescribed a controlled substance at d/c from ED?: No Referrals: Fermín Sanabria MD [Primary Care Provider] - 1-2 days
--- NOTE | 2022-10-25 07:29 | XR ---
EXAMINATION TYPE: XR femur 2 views RT, XR lumbar spine 3V, XR ankle complete 3 views RT DATE OF EXAM: 10/25/2022 COMPARISON: NONE HISTORY: 26-year-old female pain after fall downstairs. Personal history of situs inversus. FINDINGS: Right femur: The hip articulation appears intact. No acute fracture is identified. Knee articulation also appears grossly intact. Right ankle: Ankle mortise is congruent with preservation of the distal tibiofibular overlap. Talar dome is intact . Subtalar joint align. Smooth delineation to the Achilles tendon. No acute fracture, subluxation, or dislocation seen. Lumbar spine: 5 lumbar type vertebral bodies. Vertebral body heights are preserved and alignment is maintained. Mil d early degenerative endplate spondylosis T11-T12. Accentuated lower lumbar lordosis. IMPRESSION: 1. Right femur: No acute osseous abnormality seen. 2. Right ankle: No acute osseous abnormality seen. 3. Lumbar spine: No vertebral compression collapse or malalignment.
--- NOTE | 2022-10-25 08:02 | CT ---
EXAMINATION TYPE: CT brain berhane wo con DATE OF EXAM: 10/25/2022 COMPARISON: None HISTORY: 26-year-old female pain after Fell down staircase CT DLP: 1161.6 mGycm Automated exposure control for dose reduction was used. Technique: Examination of the head was done in axial plane without intravenous contrast. Coronal and sagittal reconstructions performed. CT of the cervical spine was obtained in axial plane without intravenous injection of contrast mater ial. Coronal and sagittal reformatted images were obtained from the axial views for evaluation of f ractures, spinal alignment and canal. FINDINGS: Head: There is no evidence of acute intracranial hemorrhage, acute ischemic changes, mass, mass-effect, or extra-axial fluid collection. There is no effacement of cerebral sulci or basal subarachnoid cister ns. There is no hydrocephalus. There is no midline shift. Singh-white matter distinction is preserv ed. 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 Extensive soft tissue crowding of the fo ramen magnum. Rightward nasal septal deviation. Facial bones reported separately. No calvarial fracture seen. Masto id air cells appear well-pneumatized. Cervical spine: No craniocervical junction abnormality, predental space widening, or prevertebral soft tissue swellin g. Preserved alignment of the cervical spine though with reversal of the normal cervical lordosis. No acute fracture, subluxation, dislocation is seen. Sagittal and coronal reformatted images confirm above findings. COMBINED IMPRESSION: 1. 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 Findings compatible with Chiari I malform ation. Consider neurosurgery outpatient referral for further management/follow-up. 2. Otherwise, no acute intracranial abnormality seen. 3. No acute fracture or malalignment of the cervical spine.
--- NOTE | 2022-10-25 08:05 | CT ---
EXAMINATION TYPE: CT facial bones wo con DATE OF EXAM: 10/25/2022 COMPARISON: None HISTORY: 26-year-old female with pain after Fall down staircase, left jaw pain TECHNIQUE: Contiguous axial scanning of the facial bones without IV contrast. Coronal and sagittal re constructions performed. CT DLP: Included in brain Automated exposure control for dose reduction was used. FINDINGS: The mandible and TMJs appear intact. Pterygoid plates and zygomatic arches are intact. No facial bone or nasal bone fractures seen. There is some frothy opacification right sphenoid sinus noted. Otherwise, the paranasal sinuses are w ell pneumatized. Rightward nasal septal deviation. Orbits and globes are intact. IMPRESSION: 1. SOME FROTHY OPACIFICATION RIGHT SPHENOID SINUS MAY BE SEEN WITH ACUTE SINUSITIS. CLINICALLY CORREL ATE. 2. RIGHTWARD NASAL SEPTAL DEVIATION. NO ACUTE FACIAL BONE FRACTURE SEEN.
[2022-10-25 08:53] VITALS: BP 115/74; PULSE 77; TEMP 97.6
== END 2022-10-25 09:03 | disposition home or self-care (01) ==
LOC: EC 06:01
DX: S09.90XA Unspecified injury of head, initial encounter (principal); J34.2 Deviated nasal septum; G93.5 Compression of brain; M25.571 Pain in right ankle and joints of right foot; M79.651 Pain in right thigh; W10.9XXA Fall (on) (from) unspecified stairs and steps, initial encounter
CPT/HCPCS: 70450; 70486; 72100; 72125; 99284

== ENCOUNTER 2024-04-05 08:39 | Emergency (ER) | payer OTHER ==
[2024-04-05 08:52] VITALS: RESP 20; TEMP 98.3
--- NOTE | 2024-04-05 08:52 | ED ---
URI HPI - General Chief Complaint: Upper Respiratory Infection Stated Complaint: congestion Time Seen by Provider: 04/05/24 08:45 Source: patient, RN notes reviewed Mode of arrival: ambulatory Limitations: no limitations - History of Present Illness Initial Comments: This is a 28-year-old female who presents to the emergency department for congestion. States that she woke up with the symptoms. She does have some coughing as a result of the congestion. She presents with her son who started getting sick with fevers and coughing yesterday. States that her daughter just got over pneumonia. MD Complaint: cough, nasal congestion - Related Data Home Medications Medication Instructions Recorded Confirmed Albuterol Inhaler [Ventolin Hfa 1 puff INHALATION DIRECTED PRN 11/12/20 06/29/21 Inhaler] Aspirin [Children's Aspirin] 81 mg PO DAILY 06/29/21 06/29/21 Pnv No.95/Ferrous Fum/Folic AC 1 each PO DAILY 06/29/21 06/29/21 [ Multivitamin Tablet] Previous Rx's Medication Instructions Recorded Ondansetron Odt [Zofran Odt] 4 mg PO Q8HR PRN #10 tab 12/16/23 Allergies Allergy/AdvReac Type Severity Reaction Status Date / Time No Known Allergies Allergy Verified 04/05/24 08:52 Review of Systems ROS Statement: Those systems with pertinent positive or pertinent negative responses have been documented in the HPI. ROS Other: All systems not noted in ROS Statement are negative. Past Medical History Past Medical History: Asthma Additional Past Medical History / Comment(s): dextrocardia-situs inversus, heart murmer, seasonal asthma, hx anemia, denies any vaginal discharge, Priscilla malformation type 1, History of Any Multi-Drug Resistant Organisms: MRSA Date of last positivie culture/infection: 2015 MDRO Source:: rt index finger Past Surgical History: Appendectomy Additional Past Surgical History / Comment(s): oral surgery Past Anesthesia/Blood Transfusion Reactions: Motion Sickness, Postoperative Nausea & Vomiting (PONV) Past Psychological History: No Psychological Hx Reported Smoking Status: Current some day smoker Past Alcohol Use History: Occasional Past Drug Use History: Marijuana - Past Family History Mother Family Medical History: No Reported History Father Family Medical History: Hypertension General Exam Limitations: no limitations General appearance: alert, in no apparent distress Head exam: Present: atraumatic, normocephalic, normal inspection Respiratory exam: Present: normal lung sounds bilaterally. Absent: respiratory distress, wheezes, rales, rhonchi, stridor Cardiovascular Exam: Present: regular rate, normal rhythm, normal heart sounds. Absent: systolic murmur, diastolic murmur, rubs, gallop, clicks Neurological exam: Present: alert, oriented X3, CN II-XII intact Psychiatric exam: Present: normal affect, normal mood Skin exam: Present: warm, dry, intact, normal color. Absent: rash Course Vital Signs 04/05/24 04/05/24 08:50 10:52 Temperature 98.3 F Pulse Rate 85 82 Respiratory 20 20 Rate Blood Pressure 133/83 134/84 O2 Sat by Pulse 98 97 Oximetry Medical Decision Making - Medical Decision Making This is a 28 year old female who presents to the emergency department for coughing and congestion. Was pt. sent in by a medical professional or institution? @ -No Did you speak to anyone other than the patient for history? @ -No Did you review nursing and triage notes? @ -Yes, and I agree, it is accurate with regards to the patient's symptoms. Were old charts reviewed? @ -No Differential Diagnosis? @ -Differential Cough: Influenza, Covid, RSV, croup, allergic rhinitis, GERD, pneumonia, bronchitis, COPD, viral pharyngitis, streptococcal pharyngitis, this is not meant to be an all-inclusive list. EKG interpreted by me (3pts min.)? @ -Not obtained X-rays interpreted by me (1pt min.)? @ -Chest x-ray obtained, my interpretation identifies no localized consolidations or infiltrates. CT interpreted by me (1pt min.)? @ -Not obtained U/S interpreted by me (1pt. min.)? @ -Not obtained What testing was considered but not performed? (CT, X-rays, U/S, labs)? Why? @ -None What meds were considered but not given? Why? @ -None Did you discuss the management of the patient with other professionals? @ -No Did you reconcile home meds? @ -No Was smoking cessation discussed for >3mins.? @ -No Was critical care preformed (if so, how long)? @ -No Were there social determinants of health that impacted care today? How? (Homelessness, low income, unemployed, alcoholism, drug addiction, transportation, low edu. Level, literacy, decrease access to med. care, correction, rehab)? @ -No Was there de-escalation of care discussed even if they declined? (Discuss DNR or withdrawal of care, Hospice)? @ -No What co-morbidities impacted this encounter? (DM, HTN, Smoking, COPD, CAD, Cancer, CVA, Hep., AIDS, mental health diagnosis, sleep apnea, morbid obesity)? @ -Asthma Was patient admitted / discharged? @ -Discharged. COVID, influenza, and RSV testing negative. Chest x-ray reveals no acute process. Symptoms likely viral in nature. Advised to continue with [id number] medication as needed and follow-up with her primary care provider. Patient discharged home in stable condition. Case discussed with ED attending Dr. Camacho. Return precautions reviewed in depth, the patient is instructed to return to the emergency department with any new, worsening, or concerning symptoms. Patient verbalized understanding. Undiagnosed new problem with uncertain prognosis? @ -None Drug Therapy requiring intensive monitoring for toxicity (Heparin, Nitro, Insulin, Cardizem)? @ -None Were any procedures done? @ -None Diagnosis/symptom? @ -Viral URI Acute, or Chronic, or Acute on Chronic? @ -Acute Uncomplicated (without systemic symptoms) or Complicated (systemic symptoms)? @ -Uncomplicated Side effects of treatment? @ -None Exacerbation, Progression, or Severe Exacerbation] @ -Not applicable Poses a threat to life or bodily function? @ -No - Lab Data Lab Results 04/05/24 Range/Units 08:52 Influenza Type A (PCR) Not Detected (Not Detectd) Influenza Type B (PCR) Not Detected (Not Detectd) RSV (PCR) Not Detected (Not Detectd) SARS-CoV-2 (PCR) Not Detected (Not Detectd) - Radiology Data Radiology results: report reviewed, image reviewed Disposition Clinical Impression: Upper respiratory tract infection Disposition: HOME SELF-CARE Instructions (If sedation given, give patient instructions): Upper Respiratory Infection (ED) Additional Instructions: Return to the emergency department with any new, worsening, or concerning symptoms. Follow up with your primary care provider in 1-2 days. Is patient prescribed a controlled substance at d/c from ED?: No Referrals: None,Stated [Primary Care Provider] - 1-2 days Time of Disposition: 10:37
--- NOTE | 2024-04-05 09:27 | XR ---
EXAMINATION TYPE: XR chest 2V DATE OF EXAM: 04/05/2024 CLINICAL HISTORY: Cough TECHNIQUE: Frontal and lateral views of the chest are obtained. COMPARISON: December 16, 2023 FINDINGS: There is no focal air space opacity, pleural effusion, or pneumothorax seen. The cardiac silhouette size is within normal limits. The osseous structures are intact. Stable cardiomediastina l silhouette. Again noted dextrocardia with right-sided aortic arch. IMPRESSION: No acute cardiopulmonary process. [facility], , 04/05/2024 9:25 AM
[2024-04-05 10:53] VITALS: BP 134/84; PULSE 82
== END 2024-04-05 10:53 | disposition home or self-care (01) ==
LOC: EC 08:39
DX: J06.9 Acute upper respiratory infection, unspecified (principal); F17.200 Nicotine dependence, unspecified, uncomplicated; J45.909 Unspecified asthma, uncomplicated; Z79.899 Other long term (current) drug therapy
CPT/HCPCS: 71046; 87636; 99283

== ENCOUNTER 2024-08-01 10:25 | Emergency (ER) | payer OTHER ==
[2024-08-01 10:42] VITALS: PULSE 76; RESP 18; TEMP 98.1
--- NOTE | 2024-08-01 11:01 | ED ---
Extremity Problem HPI - General Chief complaint: Extremity Problem,Nontraumatic Stated complaint: R hip/leg pain Time Seen by Provider: 08/01/24 10:51 Source: patient, RN notes reviewed Mode of arrival: ambulatory Limitations: no limitations - History of Present Illness Initial comments: 28-year-old female presenting to the emergency department for complaint of right lower back pain with radiation to the hip that started yesterday morning. Patient states that pain started when she woke up yesterday morning however is persistent and worsened today. She denies recent falls or injuries that may have caused the pain. States the pain starts in the right lower back and radiates into her hip and into the front of her leg that is worse with range of motion and movement. States that this pain feels similar as when she had sciatic nerve irritation after her as a few years ago. She denies loss of bladder bowel continence or saddle anesthesias. Denies history of IV drug use, fevers, urinary complaints. - Related Data Home Medications Medication Instructions Recorded Confirmed Albuterol Inhaler [Ventolin Hfa 1 puff INHALATION DIRECTED PRN 11/12/20 06/29/21 Inhaler] Aspirin [Children's Aspirin] 81 mg PO DAILY 06/29/21 06/29/21 Pnv No.95/Ferrous Fum/Folic AC 1 each PO DAILY 06/29/21 06/29/21 [ Multivitamin Tablet] Previous Rx's Medication Instructions Recorded Ondansetron Odt [Zofran Odt] 4 mg PO Q8HR PRN #10 tab 12/16/23 Ketorolac [Toradol] 10 mg PO Q8HR #15 tab 08/01/24 Lidocaine 5% Patch [Lidoderm] 1 patch TOPICAL DAILY #10 patch 08/01/24 Allergies Allergy/AdvReac Type Severity Reaction Status Date / Time No Known Allergies Allergy Verified 08/01/24 10:42 Review of Systems ROS Statement: Those systems with pertinent positive or pertinent negative responses have been documented in the HPI. ROS Other: All systems not noted in ROS Statement are negative. Past Medical History Past Medical History: Asthma Additional Past Medical History / Comment(s): dextrocardia-situs inversus, heart murmer, seasonal asthma, hx anemia, denies any vaginal discharge, Priscilla malformation type 1, History of Any Multi-Drug Resistant Organisms: MRSA Date of last positivie culture/infection: 2016 MDRO Source:: rt index finger Past Surgical History: Appendectomy Additional Past Surgical History / Comment(s): oral surgery Past Anesthesia/Blood Transfusion Reactions: Motion Sickness, Postoperative Nausea & Vomiting (PONV) Past Psychological History: No Psychological Hx Reported Smoking Status: Current some day smoker Past Alcohol Use History: Occasional Past Drug Use History: Marijuana - Past Family History Mother Family Medical History: No Reported History Father Family Medical History: Hypertension General Exam Limitations: no limitations General appearance: alert, in no apparent distress Respiratory exam: Present: normal lung sounds bilaterally. Absent: respiratory distress, wheezes, rales, rhonchi, stridor Cardiovascular Exam: Present: regular rate, normal rhythm, normal heart sounds. Absent: systolic murmur, diastolic murmur, rubs, gallop, clicks GI/Abdominal exam: Present: soft, normal bowel sounds. Absent: distended, tenderness, guarding, rebound, rigid Extremities exam: Present: normal inspection, full ROM, normal capillary refill. Absent: tenderness, pedal edema, joint swelling, calf tenderness Back exam: Present: normal inspection. Absent: CVA tenderness (R), CVA tenderness (L) Skin exam: Present: warm, dry, intact, normal color. Absent: rash Course Vital Signs 08/01/24 08/01/24 10:40 11:56 Temperature 98.1 F Pulse Rate 76 76 Respiratory 18 18 Rate Blood Pressure 119/80 114/71 O2 Sat by Pulse 99 99 Oximetry Medical Decision Making - Medical Decision Making Was pt. sent in by a medical professional or institution (, PA, [employer], urgent care, hospital, or intermediate...) When possible be specific @ -No Did you speak to anyone other than the patient for history (EMS, parent, family, police, friend...)? What history was obtained from this source @ -No Did you review nursing and triage notes (agree or disagree)? Why? @ -I reviewed and agree with nursing and triage notes Were old charts reviewed (outside hosp., previous admission, EMS record, old EK G, old radiological studies, urgent care reports/EKG's, intermediate records)? Report findings @ -No old charts were reviewed Differential Diagnosis (chest pain, altered mental status, abdominal pain women, abdominal pain men, vaginal bleeding, weakness, fever, dyspnea, syncope, headache, dizziness, GI bleed, back pain, seizure, CVA, palpatations, mental health, musculoskeletal)? @ -Differential Back Pain: Strain, zoster, cauda equina syndrome, epidural abscess, vertebral osteomyelitis, discitis, fracture, subluxation, disc herniation, DJD, spinal stenosis, dissection, AAA, pancreatitis, peptic ulcer disease, pyelonephritis, kidney stone, this is not meant to be an all-inclusive list. EKG interpreted by me (3pts min.). @ -None X-rays interpreted by me (1pt min.). @ -None done CT interpreted by me (1pt min.). @ -None done U/S interpreted by me (1pt. min.). @ -None done What testing was considered but not performed or refused? (CT, X-rays, U/S, labs)? Why? @ -None What meds were considered but not given or refused? Why? @ -None Did you discuss the management of the patient with other professionals (professionals i.e. , PA, [employer], lab, RT, psych nurse, social media content specialist, roller printing supervisor, teacher, education officer, corrections caseworker)? Give summary @ -No Was smoking cessation discussed for >3mins.? @ -No Was critical care preformed (if so, how long)? @ -No Were there social determinants of health that impacted care today? How? (Homelessness, low income, unemployed, alcoholism, drug addiction, transportation, low edu. Level, literacy, decrease access to med. care, nursing home, rehab)? @ -No Was there de-escalation of care discussed even if they declined (Discuss DNR or withdrawal of care, Hospice)? DNR status @ -No What co-morbidities impacted this encounter? (DM, HTN, Smoking, COPD, CAD, Cancer, CVA, ARF, Chemo, Hep., AIDS, mental health diagnosis, sleep apnea, morbid obesity)? @ -None Was patient admitted / discharged? Hospital course, mention meds given and route, prescriptions, significant lab abnormalities, going to OR and other pertinent info. @ -Discharge. 28-year-old female presenting with lumbar and hip pain. Overall patient is well-appearing. There are no red flag findings concerning for cauda equina. Negative straight leg test bilaterally. There are no lower neurological deficits on examination. She is provided with Toradol for pain relief in addition to Solu-Medrol lidocaine patch. On evaluation patient states that she is feeling better. Recommend supportive treatment for sciatic nerve irritation and outpatient prescription sent for Toradol. Discussed with Dr. Kristel swift Undiagnosed new problem with uncertain prognosis? @ -No Drug Therapy requiring intensive monitoring for toxicity (Heparin, Nitro, Insulin, Cardizem)? @ -No Were any procedures done? @ -No Diagnosis/symptom? @ -Sciatica Acute, or Chronic, or Acute on Chronic? @ -Acute Uncomplicated (without systemic symptoms) or Complicated (systemic symptoms)? @ -uncomplicated Side effects of treatment? @ -No Exacerbation, Progression, or Severe Exacerbation? @ -No Poses a threat to life or bodily function? How? (Chest pain, [place], [place], pneumonia, PE, COPD, DKA, ARF, appy, cholecystitis, CVA, Diverticulitis, Homicidal, Suicidal, threat to staff... and all critical care pts) @ -No Disposition Clinical Impression: Sciatica Disposition: HOME SELF-CARE Condition: Good Instructions (If sedation given, give patient instructions): Sciatica (ED) Additional Instructions: Please return to the Emergency Department if symptoms worsen or any other concerns. Take Toradol as prescribed with Tylenol however do not take this medication with Motrin. Prescriptions: Lidocaine 5% Patch [Lidoderm] 1 patch TOPICAL DAILY #10 patch Ketorolac [Toradol] 10 mg PO Q8HR #15 tab Is patient prescribed a controlled substance at d/c from ED?: No Referrals: Adele Alcazar FNPBC [REFERRING] - 1-2 days (Contact a primary care office to become established with a provider. ) None,Stated [Primary Care Provider] - 1-2 days Forms: Area PCPs Time of Disposition: 11:49
[2024-08-01] MEDS: KETOROLAC 15 MG/ML 1 ML VIAL IM STA (11:10)
[2024-08-01] MEDS: methylPREDNISolone SOD SUCCI 125 MG/2 ML VIAL IM ONE (11:11)
[2024-08-01] MEDS: LIDOCAINE 4% PATCH TOPICAL ONE (11:12)
[2024-08-01 11:59] VITALS: BP 114/71
== END 2024-08-01 12:00 | disposition home or self-care (01) ==
LOC: EC 10:25
DX: M54.41 Lumbago with sciatica, right side (principal); F17.200 Nicotine dependence, unspecified, uncomplicated
CPT/HCPCS: 99283; 96372 ×2; J1885; J2919